=== PATIENT | female | born 1965 | race Caucasian/White ===

== ENCOUNTER 2016-12-14 09:54 | Emergency (ER) | payer SELFPAY ==
[2016-12-14 10:01] VITALS: BP 153/86; BMI 48.9
--- NOTE | 2016-12-14 10:43 | DR.GENAD ---
HPI - PCP Primary Care Physician: derrek in [place] - Complaint/Symptoms Chief Complaint Doctors Comments: Patient states that she has has this bronchitis for two weeks and am no better. Chief Complaint:: patient stated she feels week,nausea and vomiting, diarrhea, dizzy, hard to breath and feels faint. patient stated she has been her twice in the past 2 weeks with the same symptoms. Self Treatment fo Chief Complaint: came to the er twice in the past 2 weeks. - Source History Provided: Patient - Mode of Arrival Mode of Arrival: Ambulatory - Timing Onset of Chief Complaint: 11/28/16 PMH - PMH Past Medical History: Yes Past Medical History: Anxiety, Arthritis, COPD, Diabetes, GERD, Hypertension, Hypothyroidism Past Surgical History: Yes Surgical History: Hysterectomy - Family History History of Family Medical Conditions: Yes Family Medical History: Diabetes Mellitus, Cancer, [place], Coronary Artery Disease, Hypertension - Social History Does patient currently use any type of tobacco product: No Have you used tobacco products in the last 12 months: No Type of Tobacco Use: None Does any household member use tobacco: No Alcohol Use: None Do you use any recreational Drugs:: No Lives With: Alone Lives Where: Home - infectious screening In the last 2 months have you had wt loss of >10#?: NO Have you had fever, night sweats or hemotysis?: No Have you traveled outside the country in the last 6 months?: No Isolation: Standard ROS - Review of Systems Constitutional: No Symptoms Reported Eyes: No Symptoms Reported ENTM: No Symptoms Reported Respiratoy: Moist Cough, Wheezing Cardiovascular: No Symptoms Reported Gastrointestinal/Abdominal: No Symptoms Reported Genitourinary: No Symptoms Reported Neurological: No Symptoms Reported Musculoskeletal: No Symptoms Reported Integumentary: No Symptoms Reported Hematologic/Lymphatic: No Symptoms Reported Endocrine: No Symptoms Reported Psychiatric: No Symptoms Reported All Other Systems: Reviewed and Negative PE - Vital Signs Vitals: Temperature 97.7 F Pulse Rate 93 Respiratory Rate 16 Blood Pressure [Left Arm] 127/66 Blood Pressure [Right Arm] 130/71 Blood Pressure 153/86 O2 Sat by Pulse Oximetry 96 - General Limitations: No Limitations General Appearance: Alert - Head Head Exam: Normal Inspection, Atraumatic - Eyes Eye exam: Normal Appearance, PERRL, EOMI - ENT ENT Exam: Normal Exam, Mucous Membranes Moist TM/Canal Exam: Bilateral Normal Nose Exam: Normal Nose Exam Mouth Exam: Normal Inspection Throat Exam: Normal Inspection - Neck Neck Exam: Normal Inspection - Chest Chest Inspection: Normal Inspection - Respiratory Respiratory Exam: Normal Lung Sounds Bilat Respiratory Exam: Bilateral Clear to Auscultation - Cardiovascular Cardiovascular Exam: Regular Rate, Normal Rhythm - Abdominal Exam Abdominal Exam: Normal Inspection Abdominal Tenderness: negative: RUQ, RLQ, LUQ, LLQ, Epigastrium, Suprapubic, Diffuse, Mild, Moderate, Severe, Other - Extremities Extremities Exam: Normal Inspection - Back Back Exam: Normal Inspection - Neurologic Neurological Exam: Alert, Oriented X3, CN II-XII Intact - Psychiatric Psychiatric Exam: Normal Affect - Skin Skin Exam: Warm, Dry, Intact Course - Reevaluation 1st: Improved ROR - Labs Reviewed Result Diagrams: 12/14/16 11:05 12/14/16 11:05 Laboratory: WBC 6.2 X10^3/uL (3.6-10.0) 12/14/16 11:05 RBC 4.24 X10^6/uL (3.5-5.4) 12/14/16 11:05 Hgb 11.6 g/dL (12.0-16.0) L 12/14/16 11:05 Hct 35.6 % (36.0-47.0) L 12/14/16 11:05 MCV 84.0 fL (80.0-100.0) 12/14/16 11:05 MCH 27.4 pg (27.0-34.0) 12/14/16 11:05 MCHC 32.6 g/dL (33.0-35.0) L 12/14/16 11:05 RDW 15.3 % (11.6-16.5) 12/14/16 11:05 Plt Count 246 X10^3/uL (150.0-450.0) 12/14/16 11:05 MPV 8.2 fL (7.4-11.0) 12/14/16 11:05 Neut % 66.2 % (42.0-75.0) 12/14/16 11:05 Lymph % 25.3 % (21.0-51.0) 12/14/16 11:05 [place] % 6.2 % (0.0-13.0) 12/14/16 11:05 Eos % 1.8 % (0.9-2.9) 12/14/16 11:05 Baso % 0.5 % (0.2-1.0) 12/14/16 11:05 Neut # 4.1 x10^3/uL (2.2-4.8) 12/14/16 11:05 Lymph # 1.6 X10^3/uL (1.3-2.9) 12/14/16 11:05 [place] # 0.4 x10^3/uL (0.3-0.8) 12/14/16 11:05 Eos # 0.1 x10^3/uL (0.0-0.2) 12/14/16 11:05 Baso # 0.0 X10^3/uL (0.0-0.1) 12/14/16 11:05 Absolute Nucleated RBC 0.0 /100WBC 12/14/16 11:05 Sodium 138 mmol/L (136-145) 12/14/16 11:05 Corrected Sodium 143 mmol/L (136-145) 12/14/16 11:05 Potassium 3.8 mmol/L (3.5-5.1) 12/14/16 11:05 Chloride 102 mmol/L (98-107) 12/14/16 11:05 Carbon Dioxide 26.1 mmol/L (21-32) 12/14/16 11:05 BUN 12 mg/dL (7-18) 12/14/16 11:05 Creatinine 0.94 mg/dL (0.55-1.02) 12/14/16 11:05 Est GFR (MDRD) Af Amer > 60 (>60) 12/14/16 11:05 Est GFR (MDRD) Non-Af > 60 (>60) 12/14/16 11:05 Glucose 314 mg/dL (65-99) H 12/14/16 11:05 Calcium 8.1 mg/dL (8.5-10.1) L 12/14/16 11:05 Corrected Calcium 8.9 mg/dL (8.5-10.1) 12/14/16 11:05 Total Bilirubin 0.30 mg/dL (0.2-1.0) 12/14/16 11:05 AST 15 Units/L (15-37) 12/14/16 11:05 ALT 31 Units/L (12-78) 12/14/16 11:05 Alkaline Phosphatase 148 Units/L (46-116) H 12/14/16 11:05 C-Reactive Protein 35.00 mg/L (0-3.0) H 12/14/16 11:05 Total Protein 7.3 g/dL (6.4-8.2) 12/14/16 11:05 Albumin 3.0 g/dL (3.4-5.0) L 12/14/16 11:05 Globulin 4.3 g/dL (2.5-4.5) 12/14/16 11:05 Albumin/Globulin Ratio 0.7 Ratio (1.1-2.1) L 12/14/16 11:05 - XRAY XRAY Interpreted by: Radiologist (Chest: Bronchitis vs reactive airway disease) - Diagnosis Discharge Problem: Bronchitis - Discharge Plan Condition: Stable - Follow ups/Referrals Follow ups/Referrals: ELYSIA COLUNGA [Primary Care Provider] - 3 days - Instructions
[2016-12-14] MEDS ORDERED: NS 1000 ML 1,000 ML IV SCH (11:00)
[2016-12-14] MEDS ORDERED: DUONEB 0.5 MG/3 MG NEB ONE (11:09)
[2016-12-14 11:13] LABS: EOSINOPHILS # (AUTO) 0.1 x10^3/uL (0.0-0.2); HEMOGLOBIN 11.6 g/dL (12.0-16.0); LYMPHOCYTES # (AUTO) 1.6 X10^3/uL (1.3-2.9); MONOCYTES # (AUTO) 0.4 x10^3/uL (0.3-0.8)
[2016-12-14] MEDS ORDERED: DUONEB 0.5 MG/3 MG ONE (11:15)
[2016-12-14 11:28] LABS: BASOPHILS % (AUTO) 0.5 % (0.2-1.0); EOSINOPHILS % (AUTO) 1.8 % (0.9-2.9); HEMATOCRIT 35.6 % (36.0-47.0); LYMPHOCYTES % (AUTO) 25.3 % (21.0-51.0); MEAN CORPUSCULAR HEMOGLOBIN 27.4 pg (27.0-34.0); MEAN CORPUSCULAR HGB CONC 32.6 g/dL (33.0-35.0); MEAN PLATELET VOLUME 8.2 fL (7.4-11.0); MONOCYTES % (AUTO) 6.2 % (0.0-13.0); NEUTROPHILS # (AUTO) 4.1 x10^3/uL (2.2-4.8); NEUTROPHILS % (AUTO) 66.2 % (42.0-75.0); PLATELET COUNT 246 X10^3/uL (150.0-450.0); RED BLOOD COUNT 4.24 X10^6/uL (3.5-5.4); RED CELL DISTRIBUTION WIDTH 15.3 % (11.6-16.5); WHITE BLOOD COUNT 6.2 X10^3/uL (3.6-10.0)
[2016-12-14 11:32] LABS: ALANINE AMINOTRANSFERASE 31 Units/L (12-78); ALKALINE PHOSPHATASE 148 Units/L (46-116); ASPARTATE AMINO TRANSFERASE 15 Units/L (15-37); BLOOD UREA NITROGEN 12 mg/dL (7-18); CALCIUM 8.1 mg/dL (8.5-10.1); CARBON DIOXIDE 26.1 mmol/L (21-32); CHLORIDE 102 mmol/L (98-107); COR CA(FOR HYPOALB) 8.9 mg/dL (8.5-10.1); COR NA(FOR HYPERGLY) 143 mmol/L (136-145); CREATININE 0.94 mg/dL (0.55-1.02); GLUCOSE 314 mg/dL (65-99); SODIUM 138 mmol/L (136-145); TOTAL PROTEIN 7.3 g/dL (6.4-8.2); eGFR BLACK RACES > 60 (>60); eGFR NON BLACK RACES > 60 (>60)
[2016-12-14] MEDS ORDERED: NS 1000 ML 1,000 ML ONE (11:50)
[2016-12-14] MEDS ORDERED: PHENERGAN INJ 25 MG IV ONE (12:25)
[2016-12-14] MEDS ORDERED: PHENERGAN INJ 25 MG ONE (12:32)
--- NOTE | 2016-12-14 12:33 | RAD ---
HISTORY: Expiratory wheeze. Bronchitis. Study: Chest one view Comparison: December 10, 2016. Findings: The trachea is midline. The cardiac silhouette is unremarkable. There is some prominence of the ce ntral bronchial pulmonary markings in both lungs. There is no evidence of consolidation, significant infiltrate, effusion, or pneumothorax. The bony thorax is unremarkable. IMPRESSION: 1. Bronchitis versus reactive airway disease. Reported By:
== END 2016-12-14 12:50 | disposition home or self-care (01) ==
LOC: ER 09:54
DX: J40 Bronchitis, not specified as acute or chronic (principal)
CPT/HCPCS: 36415; 71010; 80053; 85025; 86140; 96365; 96374; 99283; A4222; J2550; J7620

== ENCOUNTER 2016-12-15 19:18 | Inpatient (IN) | payer SELFPAY ==
--- NOTE | 2016-12-15 19:26 | DR.GENAD ---
HPI - HPI Comment HPI Comment: COUGHING FOR SEVERAL WEEKS ON ANTIBIOTIC. GETTING WORSE. INCREASING SOB TODAY. HOME MEDICATIONS DID NOT HELP. HEAD IS HURTING WITH COUGHING. NAUSEATED. HAVE DIARRHEA FOR PAST 2 DAYS. - Complaint/Symptoms Chief Complaint Doctors Comments: INCREASING SOB AND WEAKNESS. HEAD HURTS WITH COUGHING. - Nurses notes reviewed Nurses Notes Review: Yes - Source History Provided: Patient - Mode of Arrival Mode of Arrival: Ambulatory - Timing Came on: Gradually - Duration Duration: Constant Duration: Hours - Severity Severity: Moderate PMH - PMH Past Medical History: Anxiety, Arthritis, COPD, Diabetes, GERD, Hypertension, Hypothyroidism Past Surgical History: Yes Surgical History: Hysterectomy - Family History Family Medical History: Diabetes Mellitus, Cancer, [place], Coronary Artery Disease, Hypertension - Social History Do you use any recreational Drugs:: No ROS - Review of Systems Constitutional: Weakness, Fatigue. negative: Chills, Fever Eyes: No Symptoms Reported. negative: Eye Pain, Discharge ENTM: Nose Congestion. negative: Ear Pain, Nose Discharge, Throat Pain Respiratoy: Productive Cough, Short of Breath, Wheezing. negative: Hemoptysis Cardiovascular: Chest Pain, Edema (TRACE) Gastrointestinal/Abdominal: Diarrhea, Nausea Genitourinary: No Symptoms Reported Neurological: Headache, Weakness, Dizziness Musculoskeletal: Back Pain, Muscle Pain Integumentary: No Symptoms Reported Hematologic/Lymphatic: No Symptoms Reported Endocrine: No Symptoms Reported All Other Systems: Reviewed and Negative PE - Vital Signs Vitals: Temperature 98.2 F Pulse Rate 89 Respiratory Rate 24 Blood Pressure [Left Arm] 127/66 Blood Pressure [Right Arm] 130/71 Blood Pressure 122/62 O2 Sat by Pulse Oximetry 92 - General Limitations: No Limitations General Appearance: Alert - Eyes Eye exam: Normal Appearance - ENT ENT Exam: Normal External Ear Exam External Ear Exam: Normal External Inspection TM/Canal Exam: Bilateral Normal Nose Exam: Normal Nose Exam Mouth Exam: Normal Inspection Throat Exam: Normal Inspection - Neck Neck Exam: Trachea Midline - Chest Chest Inspection: Symmetric Chest Wall Rise - Respiratory Respiratory Exam: Normal Lung Sounds Bilat Respiratory Exam: Bilateral Clear to Auscultation - Cardiovascular Cardiovascular Exam: Regular Rate, Normal Rhythm, Normal Heart Sounds - Abdominal Exam Abdominal Exam: Normal Bowel Sounds, Soft. negative: Tenderness - Extremities Extremities Exam: Edema (TRACE) - Back Back Exam: Paraspinal Tenderness - Psychiatric Psychiatric Exam: Anxious - Skin Skin Exam: Normal Color [facility] - Differential Diagnosis Differential Diagnosis: RESPIRATORY DISTRESS, CHF, COPD, HYPERCAPNEA. Course - Treatment Treatment: SEE ORDERS - Reevaluation 1st: Improved (SOB IMPROVING WITH BI-PAP.) 2nd: Improved (HEADACHE IMPROVE WITH PAIN MED.) - Consultation Consultation Comments: DISCUSS PATIENT WITH DR. ABDI. HE WILL ADMIT PATIENT. - Education/Counseling Education/Counseling: Patient, Education Educated On: Treatment, Diagnosis ROR - Labs Reviewed Laboratory Results Reviewed?: Yes Result Diagrams: 12/16/16 05:03 12/16/16 05:03 Laboratory: WBC 7.1 X10^3/uL (3.6-10.0) 12/15/16 19:45 RBC 4.32 X10^6/uL (3.5-5.4) 12/15/16 19:45 Hgb 11.8 g/dL (12.0-16.0) L 12/15/16 19:45 Hct 36.6 % (36.0-47.0) 12/15/16 19:45 MCV 84.9 fL (80.0-100.0) 12/15/16 19:45 MCH 27.3 pg (27.0-34.0) 12/15/16 19:45 MCHC 32.1 g/dL (33.0-35.0) L 12/15/16 19:45 RDW 15.4 % (11.6-16.5) 12/15/16 19:45 Plt Count 258 X10^3/uL (150.0-450.0) 12/15/16 19:45 MPV 8.0 fL (7.4-11.0) 12/15/16 19:45 Neut % 64.9 % (42.0-75.0) 12/15/16 19:45 Lymph % 26.5 % (21.0-51.0) 12/15/16 19:45 [place] % 6.1 % (0.0-13.0) 12/15/16 19:45 Eos % 1.7 % (0.9-2.9) 12/15/16 19:45 Baso % 0.8 % (0.2-1.0) 12/15/16 19:45 Neut # 4.6 x10^3/uL (2.2-4.8) 12/15/16 19:45 Lymph # 1.9 X10^3/uL (1.3-2.9) 12/15/16 19:45 [place] # 0.4 x10^3/uL (0.3-0.8) 12/15/16 19:45 Eos # 0.1 x10^3/uL (0.0-0.2) 12/15/16 19:45 Baso # 0.1 X10^3/uL (0.0-0.1) 12/15/16 19:45 Absolute Nucleated RBC 0.0 /100WBC 12/15/16 19:45 Sample Site [place] 12/15/16 19:52 ABG pH 7.300 (7.35-7.45) L 12/15/16 19:52 ABG pCO2 69.0 mmHg (35.0-45.0) H* 12/15/16 19:52 ABG pO2 68.0 mmHg (80.0-100.0) L 12/15/16 19:52 ABG HCO3 34.0 mmol/L (22-26) H* 12/15/16 19:52 ABG O2 Saturation 91.0 % (90-100) 12/15/16 19:52 ABG Base Excess 5.5 mmol/L (-2.0-2.0) H 12/15/16 19:52 Addy Test Pos 12/15/16 19:52 A-a Gradient 45.0 mmHg 12/15/16 19:52 FiO2 28 12/15/16 19:52 Blood Gas Comments Pt corrina well-bs 12/15/16 19:52 Sodium 141 mmol/L (136-145) 12/15/16 19:45 Corrected Sodium 146 mmol/L (136-145) H 12/15/16 19:45 Potassium 4.1 mmol/L (3.5-5.1) 12/15/16 19:45 Chloride 102 mmol/L (98-107) 12/15/16 19:45 Carbon Dioxide 32.2 mmol/L (21-32) H 12/15/16 19:45 BUN 14 mg/dL (7-18) 12/15/16 19:45 Creatinine 0.86 mg/dL (0.55-1.02) 12/15/16 19:45 Est GFR (MDRD) Af Amer > 60 (>60) 12/15/16 19:45 Est GFR (MDRD) Non-Af > 60 (>60) 12/15/16 19:45 Glucose 323 mg/dL (65-99) H 12/15/16 19:45 Calcium 8.5 mg/dL (8.5-10.1) 12/15/16 19:45 Corrected Calcium 9.1 mg/dL (8.5-10.1) 12/15/16 19:45 Total Bilirubin 0.20 mg/dL (0.2-1.0) 12/15/16 19:45 AST 11 Units/L (15-37) L 12/15/16 19:45 ALT 28 Units/L (12-78) 12/15/16 19:45 Alkaline Phosphatase 179 Units/L (46-116) H 12/15/16 19:45 Total Protein 7.6 g/dL (6.4-8.2) 12/15/16 19:45 Albumin 3.2 g/dL (3.4-5.0) L 12/15/16 19:45 Globulin 4.4 g/dL (2.5-4.5) 12/15/16 19:45 Albumin/Globulin Ratio 0.7 Ratio (1.1-2.1) L 12/15/16 19:45 Amylase 20 Units/L (25-115) L 12/15/16 19:45 Lipase 71 Units/L (73-393) L 12/15/16 19:45 - XRAY XRAY Interpreted by: Radiologist XRAY Findings: REPORT DISCUSS WITH PATIENT. - Diagnosis Discharge Problem: Respiratory distress, Hypercapnia, Headache, Pulmonary congestion, Hyperglycemia - Discharge Plan Disposition: ADMITTED INPATIENT Condition: Stable - Follow ups/Referrals - Instructions
[2016-12-15] MEDS ORDERED: DUONEB 0.5 MG/3 MG ONE (19:51)
[2016-12-15] MEDS ORDERED: DUONEB 0.5 MG/3 MG NEB ONE (19:55)
[2016-12-15 20:00] LABS: BASOPHILS # (AUTO) 0.1 X10^3/uL (0.0-0.1); BASOPHILS % (AUTO) 0.8 % (0.2-1.0); EOSINOPHILS # (AUTO) 0.1 x10^3/uL (0.0-0.2); EOSINOPHILS % (AUTO) 1.7 % (0.9-2.9); HEMATOCRIT 36.6 % (36.0-47.0); HEMOGLOBIN 11.8 g/dL (12.0-16.0); LYMPHOCYTES # (AUTO) 1.9 X10^3/uL (1.3-2.9); LYMPHOCYTES % (AUTO) 26.5 % (21.0-51.0); MEAN CORPUSCULAR HEMOGLOBIN 27.3 pg (27.0-34.0); MEAN CORPUSCULAR HGB CONC 32.1 g/dL (33.0-35.0); MEAN CORPUSCULAR VOLUME 84.9 fL (80.0-100.0); MONOCYTES # (AUTO) 0.4 x10^3/uL (0.3-0.8); MONOCYTES % (AUTO) 6.1 % (0.0-13.0); NEUTROPHILS # (AUTO) 4.6 x10^3/uL (2.2-4.8); NEUTROPHILS % (AUTO) 64.9 % (42.0-75.0); PLATELET COUNT 258 X10^3/uL (150.0-450.0); RED BLOOD COUNT 4.32 X10^6/uL (3.5-5.4); RED CELL DISTRIBUTION WIDTH 15.4 % (11.6-16.5); WHITE BLOOD COUNT 7.1 X10^3/uL (3.6-10.0)
[2016-12-15 20:02] LABS: ABG BASE EXCESS 5.5 mmol/L (-2.0-2.0)
[2016-12-15 20:03] LABS: ABG ALLEN TEST POS; FRACTIONATED INSPIRED OXYGEN 28
[2016-12-15 20:17] LABS: ALANINE AMINOTRANSFERASE 28 Units/L (12-78); ALBUMIN 3.2 g/dL (3.4-5.0); ALKALINE PHOSPHATASE 179 Units/L (46-116); AMYLASE 20 Units/L (25-115); ASPARTATE AMINO TRANSFERASE 11 Units/L (15-37); BLOOD UREA NITROGEN 14 mg/dL (7-18); CALCIUM 8.5 mg/dL (8.5-10.1); CARBON DIOXIDE 32.2 mmol/L (21-32); CHLORIDE 102 mmol/L (98-107); COR CA(FOR HYPOALB) 9.1 mg/dL (8.5-10.1); COR NA(FOR HYPERGLY) 146 mmol/L (136-145); CREATININE 0.86 mg/dL (0.55-1.02); GLUCOSE 323 mg/dL (65-99); LIPASE 71 Units/L (73-393); SODIUM 141 mmol/L (136-145); TOTAL PROTEIN 7.6 g/dL (6.4-8.2); eGFR BLACK RACES > 60 (>60); eGFR NON BLACK RACES > 60 (>60)
[2016-12-15] MEDS ORDERED: PHENERGAN INJ 25 MG IV STA (21:05)
[2016-12-15] MEDS ORDERED: PHENERGAN INJ 25 MG ONE (21:07)
[2016-12-15] MEDS ORDERED: DEMEROL INJ IVP ONE (22:50)
[2016-12-15] MEDS ORDERED: ROCEPHIN VIAL 1 GM 1 GM in NS 50 ML IV + SPIKE MINIBAG* 50 ML IV SCH (23:00)
[2016-12-15] MEDS ORDERED: DEMEROL INJ ONE (23:03)
[2016-12-15] MEDS ORDERED: NS 50 ML IV + SPIKE MINIBAG* 50 ML IV ONE (23:04)
[2016-12-15] MEDS ORDERED: ROCEPHIN VIAL 1 GM ONE (23:04)
[2016-12-15] MEDS ORDERED: NS 250 ML IV 250 ML IV ONE (23:05)
--- NOTE | 2016-12-15 23:31 | RAD ---
EXAM: Chest X-ray INDICATION: Shortness of breath COMPARISION: Prior exam from December 14, 2016 TECHNIQUE: Single view FINDINGS: The lungs are clear and the lung volumes are within normal limits. No pleural effusion or pneumothor ax. The cardiac silhouette is mildly enlarged and there central vascular congestion. The regional s [place] is intact. IMPRESSION: There is mild cardiomegaly and central vascular congestion. Reported By:
[2016-12-16] MEDS: DUONEB 0.5 MG/3 MG NEB SCH ×7 (01:37→21:40)
[2016-12-16 02:38] VITALS: BMI 54.6
[2016-12-16 05:29] LABS: BASOPHILS % (AUTO) 0.6 % (0.2-1.0); EOSINOPHILS # (AUTO) 0.1 x10^3/uL (0.0-0.2); EOSINOPHILS % (AUTO) 1.5 % (0.9-2.9); HEMATOCRIT 35.4 % (36.0-47.0); HEMOGLOBIN 11.5 g/dL (12.0-16.0); LYMPHOCYTES # (AUTO) 1.7 X10^3/uL (1.3-2.9); LYMPHOCYTES % (AUTO) 21.8 % (21.0-51.0); MEAN CORPUSCULAR HEMOGLOBIN 27.2 pg (27.0-34.0); MEAN CORPUSCULAR HGB CONC 32.4 g/dL (33.0-35.0); MONOCYTES # (AUTO) 0.4 x10^3/uL (0.3-0.8); MONOCYTES % (AUTO) 5.6 % (0.0-13.0); NEUTROPHILS # (AUTO) 5.6 x10^3/uL (2.2-4.8); NEUTROPHILS % (AUTO) 70.5 % (42.0-75.0); PLATELET COUNT 259 X10^3/uL (150.0-450.0); RED BLOOD COUNT 4.21 X10^6/uL (3.5-5.4); RED CELL DISTRIBUTION WIDTH 15.4 % (11.6-16.5); WHITE BLOOD COUNT 7.9 X10^3/uL (3.6-10.0)
[2016-12-16] MEDS: PHENERGAN INJ 25 MG IV PRN ×2 (05:29→11:39)
[2016-12-16] MEDS: DEMEROL INJ IVP PRN ×2 (05:29→11:38)
[2016-12-16 05:34] LABS: ALANINE AMINOTRANSFERASE 29 Units/L (12-78); ALBUMIN 3.2 g/dL (3.4-5.0); ALKALINE PHOSPHATASE 138 Units/L (46-116); ASPARTATE AMINO TRANSFERASE 17 Units/L (15-37); BLOOD UREA NITROGEN 11 mg/dL (7-18); CALCIUM 8.5 mg/dL (8.5-10.1); CARBON DIOXIDE 30.2 mmol/L (21-32); CHLORIDE 99 mmol/L (98-107); COR CA(FOR HYPOALB) 9.1 mg/dL (8.5-10.1); COR NA(FOR HYPERGLY) 142 mmol/L (136-145); CREATININE 0.73 mg/dL (0.55-1.02); GLUCOSE 256 mg/dL (65-99); SODIUM 138 mmol/L (136-145); TOTAL PROTEIN 7.7 g/dL (6.4-8.2); eGFR BLACK RACES > 60 (>60); eGFR NON BLACK RACES > 60 (>60)
[2016-12-16] MEDS: HUMULIN R SC PRN ×3 (05:37→17:43)
[2016-12-16] MEDS: HUMULIN 70/30 SC SCH ×2 (08:22→22:24)
[2016-12-16] MEDS: NORVASC TAB 10 MG PO SCH (08:23)
[2016-12-16] MEDS: ZESTRIL TAB 40 MG PO SCH (08:23)
[2016-12-16] MEDS: PAXIL PO SCH ×2 (08:23→22:07)
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
[2016-12-16] MEDS: ROCEPHIN VIAL 1 GM 1 GM in NS 50 ML IV + SPIKE MINIBAG* 50 ML IV SCH (21:30)
[2016-12-16] MEDS: FIORICET TAB PO PRN (22:06)
[2016-12-16] MEDS: LEVEMIR SC SCH (22:08)
[2016-12-17] MEDS: PHENERGAN INJ 25 MG IV PRN ×4 (00:54→22:32)
[2016-12-17] MEDS: DEMEROL INJ IVP PRN ×4 (00:54→22:32)
[2016-12-17] MEDS: DUONEB 0.5 MG/3 MG NEB SCH ×6 (01:01→21:29)
[2016-12-17 05:40] LABS: BASOPHILS # (AUTO) 0.1 X10^3/uL (0.0-0.1); BASOPHILS % (AUTO) 0.8 % (0.2-1.0); EOSINOPHILS # (AUTO) 0.2 x10^3/uL (0.0-0.2); EOSINOPHILS % (AUTO) 2.5 % (0.9-2.9); HEMATOCRIT 34.4 % (36.0-47.0); HEMOGLOBIN 11.1 g/dL (12.0-16.0); LYMPHOCYTES # (AUTO) 1.6 X10^3/uL (1.3-2.9); LYMPHOCYTES % (AUTO) 24.6 % (21.0-51.0); MEAN CORPUSCULAR HEMOGLOBIN 27.2 pg (27.0-34.0); MEAN CORPUSCULAR HGB CONC 32.3 g/dL (33.0-35.0); MEAN CORPUSCULAR VOLUME 84.3 fL (80.0-100.0); MEAN PLATELET VOLUME 8.3 fL (7.4-11.0); MONOCYTES # (AUTO) 0.5 x10^3/uL (0.3-0.8); MONOCYTES % (AUTO) 7.4 % (0.0-13.0); NEUTROPHILS # (AUTO) 4.3 x10^3/uL (2.2-4.8); NEUTROPHILS % (AUTO) 64.7 % (42.0-75.0); PLATELET COUNT 238 X10^3/uL (150.0-450.0); RED BLOOD COUNT 4.08 X10^6/uL (3.5-5.4); RED CELL DISTRIBUTION WIDTH 15.3 % (11.6-16.5); WHITE BLOOD COUNT 6.6 X10^3/uL (3.6-10.0)
[2016-12-17 05:48] LABS: ALANINE AMINOTRANSFERASE 26 Units/L (12-78); ALBUMIN 3.1 g/dL (3.4-5.0); ALKALINE PHOSPHATASE 117 Units/L (46-116); ASPARTATE AMINO TRANSFERASE 17 Units/L (15-37); BLOOD UREA NITROGEN 16 mg/dL (7-18); CALCIUM 8.9 mg/dL (8.5-10.1); CARBON DIOXIDE 31.7 mmol/L (21-32); CHLORIDE 100 mmol/L (98-107); COR CA(FOR HYPOALB) 9.6 mg/dL (8.5-10.1); COR NA(FOR HYPERGLY) 142 mmol/L (136-145); GLUCOSE 175 mg/dL (65-99); SODIUM 140 mmol/L (136-145); TOTAL PROTEIN 7.5 g/dL (6.4-8.2); eGFR BLACK RACES > 60 (>60); eGFR NON BLACK RACES > 60 (>60)
[2016-12-17] MEDS: FIORICET TAB PO PRN ×3 (05:54→20:30)
--- NOTE | 2016-12-17 07:19 | RAD ---
AP Chest Indication: Respiratory distress Comparison: 12/15/2016 Findings: The trachea is midline. The cardiac silhouette is borderline enlarged. The lungs are clear without focal infiltrate or effusion. The bony thorax is unremarkable. IMPRESSION: 1. No acute cardiopulmonary abnormality or change from prior examination. Reported By:
[2016-12-17] MEDS: NORVASC TAB 10 MG PO SCH (08:24)
[2016-12-17] MEDS: ZESTRIL TAB 40 MG PO SCH (08:24)
[2016-12-17] MEDS: HUMULIN 70/30 SC SCH ×2 (08:24→20:30)
[2016-12-17] MEDS: PAXIL PO SCH ×2 (08:24→20:30)
--- NOTE | 2016-12-17 15:06 | PCM.PROG ---
Progress Note - Progress Note for Day of Date: 12/17/16 - Subjective Subjective: PATIENT REPORTS SHE DOESN'T FEEL WELL THIS MORNING. SHE CONTINUES WITH SHORTNESS OF BREATH AT REST AND NAUSEA. PATIENT IS RECEIVING PHENERGAN IV FOR NAUSEA. ON AUSCULTATION, LUNGS CONTINUE WITH SCATTERED WHEEZES THROUGHOUT. SHE REPORTS HEADACHE IS IMPROVED WITH FIORICET. CBC WNL EXCEPT: H/H 11.1/ 34.4. CMP WNL EXCEPT: GLUCOSE 175, ALBUMIN 3.1. CHEST XRAY REPORTS NO ACUTE CARDIOPULMONARY ABNORMALITY. WE WILL CONTINUE CURRENT TREATMENT AND FOLLOW UP IN AM WITH LABS AND CHEST XRAY. WE WILL PLAN FOR DISCHARGE IF PATIENT IS STABLE. - Past Medical Family Social History Past Med/Fam/Surg Hx: No changes since H&P Allergies: Allergies Clarithromycin [From Biaxin] Allergy (Unknown, Verified 12/14/16 09:55) Hydrocodone [From Lortab] Allergy (Verified 12/14/16 09:55) Codeine Adverse Reaction (Verified 12/14/16 09:55) Hydromorphone [From Dilaudid] Adverse Reaction (Verified 12/14/16 09:55) - Review of Systems ROS: No change since H&P - Vital Signs and I&O's Vital Signs: Temperature 97.6 F Pulse Rate [Brachial] 86 Pulse Rate 92 Respiratory Rate 14 Blood Pressure [Left Arm] 103/56 Blood Pressure [Right Arm] 132/58 O2 Sat by Pulse Oximetry 96 Intake and Output: Intake & Output 12/15/16 12/16/16 12/17/16 12/18/16 11:59 11:59 11:59 11:59 Intake Total 270 1245 Balance 270 1245 - Physical Exam Oriented: Normal, Time, Person, Place Eyes: Normal. negative: Blurred Vision, Diplopia, Discharge, Pain, Redness, Photophobia Ear: Normal. negative: Swelling, Ecchymosis, Hemotypanum, Abrasion, Laceration Nose: Normal. negative: Injected, Discharge, Blood Throat: Red, Dry. negative: Tonsillar Hypertrophy, Exudate Respiratory: Generalized, Wheezes Cardiovascular: Normal. negative: Murmur : Normal. negative: Dysuria, Hematuria, Frequency, Discharge, Bleeding, Auscultation: Bowel Sounds: Increased. negative: Bruit Palpation: Normal. negative: Spleen Enlarged, Liver Enlarged, Mass Pulsatile Tenderness: Normal. negative: Rebound, Guarding, Rigidity Skin: Normal. negative: Diaphoresis, Wound, Bruising, Ecchymosis Musculoskeletal: Instability Psychiatric: Normal Mood Description: Calm, Appropriate Affect: Normal Speech Pattern: Clear, Appropriate - Laboratory and Diagnostics Result Diagrams: 12/17/16 03:40 12/17/16 03:40 Labs: Laboratory WBC 6.6 X10^3/uL (3.6-10.0) 12/17/16 03:40 RBC 4.08 X10^6/uL (3.5-5.4) 12/17/16 03:40 Hgb 11.1 g/dL (12.0-16.0) L 12/17/16 03:40 Hct 34.4 % (36.0-47.0) L 12/17/16 03:40 MCV 84.3 fL (80.0-100.0) 12/17/16 03:40 MCH 27.2 pg (27.0-34.0) 12/17/16 03:40 MCHC 32.3 g/dL (33.0-35.0) L 12/17/16 03:40 RDW 15.3 % (11.6-16.5) 12/17/16 03:40 Plt Count 238 X10^3/uL (150.0-450.0) 12/17/16 03:40 MPV 8.3 fL (7.4-11.0) 12/17/16 03:40 Neut % 64.7 % (42.0-75.0) 12/17/16 03:40 Lymph % 24.6 % (21.0-51.0) 12/17/16 03:40 [place] % 7.4 % (0.0-13.0) 12/17/16 03:40 Eos % 2.5 % (0.9-2.9) 12/17/16 03:40 Baso % 0.8 % (0.2-1.0) 12/17/16 03:40 Neut # 4.3 x10^3/uL (2.2-4.8) 12/17/16 03:40 Lymph # 1.6 X10^3/uL (1.3-2.9) 12/17/16 03:40 [place] # 0.5 x10^3/uL (0.3-0.8) 12/17/16 03:40 Eos # 0.2 x10^3/uL (0.0-0.2) 12/17/16 03:40 Baso # 0.1 X10^3/uL (0.0-0.1) 12/17/16 03:40 Absolute Nucleated RBC 0.1 /100WBC 12/17/16 03:40 Sample Site Lrad 12/15/16 19:52 ABG pH 7.300 (7.35-7.45) L 12/15/16 19:52 ABG pCO2 69.0 mmHg (35.0-45.0) H* 12/15/16 19:52 ABG pO2 68.0 mmHg (80.0-100.0) L 12/15/16 19:52 ABG HCO3 34.0 mmol/L (22-26) H* 12/15/16 19:52 ABG O2 Saturation 91.0 % (90-100) 12/15/16 19:52 ABG Base Excess 5.5 mmol/L (-2.0-2.0) H 12/15/16 19:52 Addy Test Pos 12/15/16 19:52 A-a Gradient 45.0 mmHg 12/15/16 19:52 FiO2 28 12/15/16 19:52 Blood Gas Comments Pt corrina well-bs 12/15/16 19:52 Sodium 140 mmol/L (136-145) 12/17/16 03:40 Corrected Sodium 142 mmol/L (136-145) 12/17/16 03:40 Potassium 3.5 mmol/L (3.5-5.1) 12/17/16 03:40 Chloride 100 mmol/L (98-107) 12/17/16 03:40 Carbon Dioxide 31.7 mmol/L (21-32) 12/17/16 03:40 BUN 16 mg/dL (7-18) 12/17/16 03:40 Creatinine 0.80 mg/dL (0.55-1.02) 12/17/16 03:40 Est GFR (MDRD) Af Amer > 60 (>60) 12/17/16 03:40 Est GFR (MDRD) Non-Af > 60 (>60) 12/17/16 03:40 Glucose 175 mg/dL (65-99) H 12/17/16 03:40 Calcium 8.9 mg/dL (8.5-10.1) 12/17/16 03:40 Corrected Calcium 9.6 mg/dL (8.5-10.1) 12/17/16 03:40 Total Bilirubin 0.20 mg/dL (0.2-1.0) 12/17/16 03:40 AST 17 Units/L (15-37) 12/17/16 03:40 ALT 26 Units/L (12-78) 12/17/16 03:40 Alkaline Phosphatase 117 Units/L (46-116) H 12/17/16 03:40 Total Protein 7.5 g/dL (6.4-8.2) 12/17/16 03:40 Albumin 3.1 g/dL (3.4-5.0) L 12/17/16 03:40 Globulin 4.4 g/dL (2.5-4.5) 12/17/16 03:40 Albumin/Globulin Ratio 0.7 Ratio (1.1-2.1) L 12/17/16 03:40 Amylase 20 Units/L (25-115) L 12/15/16 19:45 Lipase 71 Units/L (73-393) L 12/15/16 19:45 Acetone, Semi-Quant Negative (NEGATIVE) 12/15/16 19:45 - Plan (1) COPD exacerbation Status: Chronic Plan: CONTINUE IV ROCPEHIN, BIPAP, SUPPLEMENTAL OXYGEN, DUONEBS, MONITOR. (2) Respiratory distress Status: Acute Plan: ABOVE. (3) Hypercapnia Status: Acute Plan: ABOVE. (4) Headache Status: Acute Qualifiers: Headache type: tension-type Headache chronicity pattern: chronic headache Intractability: not intractable Qualified Code(s): G44.229 - Chronic tension -type headache, not intractable Plan: START FIORICET PRN, MONITOR. (5) Hyperglycemia Status: Acute Plan: START OTBS, INSULIN R SLIDING SCALE, MONITOR. (6) Nausea vomiting and diarrhea Status: Acute Plan: START PHENERGAN, IV FLUIDS, MONITOR. (7) Congestive heart failure (CHF) Status: Chronic Qualifiers: Congestive heart failure type: combined Congestive heart failure chronicity : chronic Qualified Code(s): I50.42 - Chronic combined systolic (congestive) and diastolic (congestive) heart failure (8) Diabetes mellitus Status: Chronic Qualifiers: Diabetes mellitus type: type 2 Diabetes mellitus complication status: with hyperglycemia Diabetes mellitus complication detail: D Diabetic retinopathy severity: D Proliferative retinopathy type: P Diabetes mellitus macular edema: D Diabetes mellitus assisted insulin use: with assisted use Laterality: L Chronic kidney disease stage: C Qualified Code(s): E11.65 - Type 2 diabetes mellitus with hyperglycemia; Z79.4 - jail (current) use of insulin (9) History of migraine headaches Status: Chronic (10) Hyperlipidemia Status: Chronic Qualifiers: Hyperlipidemia type: mixed hyperlipidemia Qualified Code(s): E78.2 - Mixed hyperlipidemia (11) Hypertension Status: Chronic Qualifiers: Hypertension type: essential hypertension Qualified Code(s): I10 - Essential (primary) hypertension (12) Hypothyroidism Status: Chronic Qualifiers: Hypothyroidism type: acquired Qualified Code(s): E03.9 - Hypothyroidism, unspecified
[2016-12-17] MEDS ORDERED: SNACK - Diabetic Appropriate PO SCH (20:00)
[2016-12-17] MEDS: LEVEMIR SC SCH (20:30)
[2016-12-17] MEDS: ROCEPHIN VIAL 1 GM 1 GM in NS 50 ML IV + SPIKE MINIBAG* 50 ML IV SCH (20:30)
[2016-12-17] MEDS: HUMULIN R SC PRN (21:00)
[2016-12-18] MEDS: DUONEB 0.5 MG/3 MG NEB SCH ×4 (01:01→12:08)
[2016-12-18] MEDS: FIORICET TAB PO PRN ×2 (02:39→09:47)
[2016-12-18] MEDS: PHENERGAN INJ 25 MG IV PRN ×2 (04:45→12:13)
[2016-12-18] MEDS: DEMEROL INJ IVP PRN ×2 (04:45→12:13)
[2016-12-18 05:09] LABS: ALANINE AMINOTRANSFERASE 26 Units/L (12-78); ALBUMIN 2.9 g/dL (3.4-5.0); ALKALINE PHOSPHATASE 119 Units/L (46-116); ASPARTATE AMINO TRANSFERASE 15 Units/L (15-37); BLOOD UREA NITROGEN 15 mg/dL (7-18); CALCIUM 8.6 mg/dL (8.5-10.1); CARBON DIOXIDE 32.2 mmol/L (21-32); CHLORIDE 99 mmol/L (98-107); COR CA(FOR HYPOALB) 9.5 mg/dL (8.5-10.1); COR NA(FOR HYPERGLY) 140 mmol/L (136-145); CREATININE 0.78 mg/dL (0.55-1.02); GLUCOSE 216 mg/dL (65-99); SODIUM 137 mmol/L (136-145); TOTAL PROTEIN 7.1 g/dL (6.4-8.2); eGFR BLACK RACES > 60 (>60); eGFR NON BLACK RACES > 60 (>60)
[2016-12-18 05:23] LABS: BASOPHILS % (AUTO) 0.6 % (0.2-1.0); EOSINOPHILS # (AUTO) 0.2 x10^3/uL (0.0-0.2); EOSINOPHILS % (AUTO) 3.3 % (0.9-2.9); HEMATOCRIT 34.4 % (36.0-47.0); HEMOGLOBIN 11.1 g/dL (12.0-16.0); LYMPHOCYTES # (AUTO) 1.5 X10^3/uL (1.3-2.9); LYMPHOCYTES % (AUTO) 24.8 % (21.0-51.0); MEAN CORPUSCULAR HEMOGLOBIN 27.4 pg (27.0-34.0); MEAN CORPUSCULAR HGB CONC 32.3 g/dL (33.0-35.0); MEAN CORPUSCULAR VOLUME 84.8 fL (80.0-100.0); MEAN PLATELET VOLUME 8.5 fL (7.4-11.0); MONOCYTES # (AUTO) 0.5 x10^3/uL (0.3-0.8); NEUTROPHILS # (AUTO) 3.9 x10^3/uL (2.2-4.8); NEUTROPHILS % (AUTO) 63.3 % (42.0-75.0); PLATELET COUNT 249 X10^3/uL (150.0-450.0); RED BLOOD COUNT 4.06 X10^6/uL (3.5-5.4); RED CELL DISTRIBUTION WIDTH 15.9 % (11.6-16.5); WHITE BLOOD COUNT 6.1 X10^3/uL (3.6-10.0)
[2016-12-18] MEDS: HUMULIN R SC PRN (06:15)
--- NOTE | 2016-12-18 06:56 | RAD ---
HISTORY: Respiratory distress Study: Chest one view Comparison: December 17, 2016 Findings: The trachea is midline. The cardiac silhouette is mildly enlarged. No congestive heart failure is n oted.. The lungs are clear without focal infiltrate or effusion. The bony thorax is unremarkable. IMPRESSION: 1. Mild cardiomegaly without congestive heart failure 2. Lungs clear Reported By:
[2016-12-18] MEDS: ZESTRIL TAB 40 MG PO SCH (09:47)
[2016-12-18] MEDS: PAXIL PO SCH (09:47)
[2016-12-18] MEDS: HUMULIN 70/30 SC SCH (09:48)
[2016-12-18] MEDS: NORVASC TAB 10 MG PO SCH (09:48)
[2016-12-18 15:11] VITALS: BP 118/56
--- NOTE | 2016-12-19 08:03 | DR.CARTERD ---
- Discharge Summary for: Discharge Summary for Date of:: 12/18/16 - Admission Date Date of Admission: 12/16/16 - Admission Diagnoses Admission Diagnosis: (1) COPD exacerbation (2) Respiratory distress (3) Hypercapnia (4) Headache (5) Hyperglycemia (6) Nausea vomiting and diarrhea (7) Congestive heart failure (CHF) (8) Diabetes mellitus (9) History of migraine headaches (10) Hyperlipidemia (11) Hypertension (12) Hypothyroidism - Discharge Date Discharge Date: 12/18/16 - Discharge Diagnoses Discharge Diagnosis: (1) COPD exacerbation (2) Respiratory distress (3) Hypercapnia (4) Headache (5) Hyperglycemia (6) Nausea vomiting and diarrhea (7) Congestive heart failure (CHF) (8) Diabetes mellitus (9) History of migraine headaches (10) Hyperlipidemia (11) Hypertension (12) Hypothyroidism - Hospital Course Hospital Course: DAY ONE OF HOSPITAL STAY, THIS 51 YEAR OLD FEMALE, IS A PATIENT OF DR. ELYSIA COLUNGA, [place], [place]. PATIENT PRESENTED TO THE EMERGENCY ROOM WITH COMPLAINTS OF COUGH, CONGESTION, AND SHORTNESS OF BREATH. SHE REPORTED SYMPTOMS HAD INCREASINGLY WORSENED DESPITE ORAL ANTIBIOTICS. SHE REPORTED ASSOCIATED SYMPTOMS OF NAUSEA, HEADACHE, WEAKNESS, FATIGUE, DIZZINESS, BACK PAIN, MUSCLE PAIN, AND NOSE CONGESTION. SHE REPORTED DIARRHEA FOR 2 DAYS. PATIENT HAS AN EXTENSIVE HISTORY OF COPD AND HYPERCAPNEA. SHE WAS NOTED WITH RESPIRATORY DISTRESS ON ARRIVAL TO ER WITH ACCESSORY MUSCLE USE. LABS AND CHEST XRAY OBTAINED. CBC WNL EXCEPT: H/H 11.5/35.4. CMP WNL EXCEPT: GLUCOSE 256, ALK PHOS 138, ALBUMIN 3.2. ABG PH 7.300, PCO2 69.0, PO2 68.0, HCO3 34.0, FIO2 28.0. CHEST XRAY REPORTED MILD CARDIOMEGALY AND CENTRAL VASCULAR CONGESTION. PATIENT WAS PLACED ON BIPAP AND WAS NOTED WITH LESS DISTRESS. WE ADMITTED PATIENT FOR FURTHER TREATMENT AND EVALUATION. DAY TWO OF HOSPITAL STAY, PATIENT REPORTED SHE DIDN'T FEEL WELL. SHE CONTINUED WITH SHORTNESS OF BREATH AT REST AND NAUSEA. PATIENT WAS RECEIVING PHENERGAN IV FOR NAUSEA. ON AUSCULTATION, LUNGS CONTINUED WITH SCATTERED WHEEZES THROUGHOUT. SHE REPORTED HEADACHE WAS IMPROVED WITH FIORICET. CBC WNL EXCEPT: H/H 11.1/34.4. CMP WNL EXCEPT: GLUCOSE 175, ALBUMIN 3.1. CHEST XRAY REPORTED NO ACUTE CARDIOPULMONARY ABNORMALITY. WE CONTINUED TREATMENT AND MONITORED. DAY THREE OF HOSPITAL STAY, PATIENT REPORTED SHE WAS FEELING BETTER. NO DISTRESS WAS NOTED. RESPIRATORY EFFORT WAS EASY. SHE DENIED NAUSEA. ON AUSCULTATION, LUNGS WERE DIMINISHED, BUT CLEAR. LABS WNL. WE PLANNED FOR DISCHARGE. INSTRUCTIONS FOR MEDICATIONS AND FOLLOW UP WERE GIVEN TO PATIENT AND FAMILY, BOTH VOICED UNDERSTANDING. PATIENT WAS DISCHARGED HOME IN STABLE CONDITION WITH FAMILY. - Discharge Medications Discharge Medications: Fsklkhmkwe-Vdri-Pzwceemk [FIORICET 50/325/40 MG *] 1 tab PO QID #20 tab [Rx] Cefdinir [Omnicef Cap 300 mg] 300 mg PO BID #20 cap 12/18/16 [Rx] Ipratropium/Albuterol Nebule [DUONEB 0.5 MG/3 MG NEBULE *] 1 ea NEB QID #120 each 12/18/16 [Rx] Ondansetron [Zofran Odt] 4 mg PO Q8H PRN #12 tab 12/18/16 [Rx] - Discharge Disposition Discharge Disposition: PATIENT IS TO FOLLOW UP WITH DR. ELYSIA COLUNGA IN ONE WEEK.
== END 2016-12-18 15:10 | disposition home or self-care (01) | DRG 191 ==
LOC: ER 19:18 → MED/SURG 12-16 00:12
PROVIDERS: ADMIT Internal Medicine; ATTEND Internal Medicine
DX: J44.1 Chronic obstructive pulmonary disease with (acute) exacerbation (principal); R06.09 Other forms of dyspnea; R06.89 Other abnormalities of breathing; R06.02 Shortness of breath; R19.7 Diarrhea, unspecified; R53.1 Weakness; M13.89 Other specified arthritis, multiple sites; K21.9 Gastro-esophageal reflux disease without esophagitis; I10 Essential (primary) hypertension; E03.8 Other specified hypothyroidism; R09.89 Other specified symptoms and signs involving the circulatory and respiratory systems; I51.7 Cardiomegaly; G44.229 Chronic tension-type headache, not intractable; R11.2 Nausea with vomiting, unspecified; I50.42 Chronic combined systolic (congestive) and diastolic (congestive) heart failure; Z79.4 Long term (current) use of insulin; Z86.69 Personal history of other diseases of the nervous system and sense organs
CPT/HCPCS: 36415; 36600; 71010; 80053; 82009; 82150; 82803; 83690; 85025; 94644; 94760; 96365; 96374; 96375; 99284; A4222; A4618; A7030; 1956; J0696; J1815; J2175; J2550; J7620

== ENCOUNTER 2017-01-05 02:17 | Emergency (ER) | payer SELFPAY ==
[2017-01-05 02:36] VITALS: BMI 50.4
[2017-01-05] MEDS ORDERED: TORADOL 60 MG VIAL IM ONE (03:13)
[2017-01-05] MEDS ORDERED: REGLAN INJ 10 MG VIAL IM STA (03:17)
[2017-01-05] MEDS ORDERED: TORADOL 60 MG VIAL ONE (03:19)
[2017-01-05] MEDS ORDERED: REGLAN INJ 10 MG VIAL ONE (03:19)
--- NOTE | 2017-01-05 03:25 | DR.GENAD ---
HPI - PCP Primary Care Physician: Rachna RAMOS - Complaint/Symptoms Chief Complaint Doctors Comments: Patient complains of headache, nausea, vomiting for the past week. States she has taken Zofran at 6 pm, Dramamine, Motrin 800mg and it has not helped. States this is the worst headache of her whole life. She is a patient of Dr. Ramos and states the pain is 10 of 10. states she was admitted aa few weeks ago with bronchitis and COPD and she had a headache all the time during that admission. She denies blurred vision, cold, fever, chills, or diarrhea. States she has taken Zofran all evening without any relief. Chief Complaint:: HEADACHE AND NAUSEATED EVERYDAY THIS WEEK. STARTED VOMITING TONIGHT Self Treatment fo Chief Complaint: ZOFRAN 6PM TONIGHT, DRAMAMINE AT NOON, IBUPROFEN 800MG AT 6PM TONIGHT - Nurses notes reviewed Nurses Notes Review: Yes - Source History Provided: Patient - Mode of Arrival Mode of Arrival: Ambulatory - Timing Onset of Chief Complaint: 12/31/16 Came on: Gradually - Duration Duration: Constant How lon Duration: Days - Location Location: diffuse headache - Severity Severity: Moderate - Modifying Factors Worsens:: nothing Improves:: nothing PMH - PMH Past Medical History: Yes Past Medical History: Anxiety, Arthritis, CHF, COPD, Depression, Diabetes, Dyslipidemia, Migraines, GERD, Headaches, Hypertension, Hypothyroidism, Sleep Apnea Past Surgical History: Yes Surgical History: Hysterectomy Past Surgical History Comment: EXPLORATORY SURGERY ON ABD. - Family History History of Family Medical Conditions: Yes Family Medical History: Diabetes Mellitus, Cancer, [place], Heart Failure, Hypertension - Social History Does patient currently use any type of tobacco product: No Have you used tobacco products in the last 12 months: No Type of Tobacco Use: None Does any household member use tobacco: No Alcohol Use: None Do you use any recreational Drugs:: No Lives With: Alone Lives Where: Home - infectious screening In the last 2 months have you had wt loss of >10#?: NO Have you had fever, night sweats or hemotysis?: No Have you traveled outside the country in the last 6 months?: No Isolation: Standard ROS - Review of Systems Constitutional: No Symptoms Reported Eyes: No Symptoms Reported ENTM: No Symptoms Reported Respiratoy: No Symptoms Reported, Non-Productive Cough, Wheezing Cardiovascular: No Symptoms Reported Gastrointestinal/Abdominal: No Symptoms Reported, Nausea, Vomiting. negative: See HPI, Abdominal Pain, Constipation, Diarrhea, Food Intolerance, Other Genitourinary: No Symptoms Reported Neurological: No Symptoms Reported, Headache Musculoskeletal: No Symptoms Reported Integumentary: No Symptoms Reported. negative: See HPI, Change in Color, Change in Hair/Nails, Dryness, Lesions, Lumps, Rash, Itching, Wound, Bruises, Juandice, Other Hematologic/Lymphatic: No Symptoms Reported Endocrine: No Symptoms Reported Psychiatric: No Symptoms Reported PE - Vital Signs Vitals: Temperature 97.9 F Pulse Rate 86 Respiratory Rate 20 Blood Pressure [Left Arm] 118/56 Blood Pressure [Right Arm] 118/56 Blood Pressure 166/52 O2 Sat by Pulse Oximetry 93 - General Limitations: No Limitations General Appearance: Alert, In Distress (mild) - Head Head Exam: Normal Inspection, Atraumatic, Normocephalic - Eyes Eye exam: Normal Appearance, PERRL, EOMI. negative: Scleral Icterus, Conjunctival Injection, Nystagmus, Miosis, Mydrasis, Periorbital Swelling, Periorbital Tenderness, Other - ENT ENT Exam: Normal Exam, Normal Oropharynx, Normal External Ear Exam, Mucous Membranes Moist, TM's Normal Bilaterally External Ear Exam: Normal External Inspection TM/Canal Exam: Bilateral Normal Nose Exam: Normal Nose Exam Mouth Exam: Normal Inspection Throat Exam: Normal Inspection - Neck Neck Exam: Normal Inspection, Full ROM, Trachea Midline. negative: Tenderness, Meningismus, Lymphadenopathy, Thyromegaly, Other - Chest Chest Inspection: Normal Inspection, Symmetric Chest Wall Rise - Respiratory Respiratory Exam: Normal Lung Sounds Bilat Respiratory Exam: Bilateral Wheezing, Bilateral Decreased Breath Sounds ( prolonged expiration) - Cardiovascular Cardiovascular Exam: Regular Rate, Normal Rhythm, Normal Heart Sounds. negative : Bradycardia, Tachycardia, Irregular Rhythm, Systolic Murmur, Diastolic Murmur , Rubs, Gallop, Clicks, JVD, +S1, +S2, +S3, +S4, Other - Abdominal Exam Abdominal Exam: Normal Inspection, Normal Bowel Sounds, Soft Abdominal Tenderness: negative: RUQ, RLQ, LUQ, LLQ, Epigastrium, Suprapubic, Diffuse, Mild, Moderate, Severe, Other - Extremities Extremities Exam: Normal Inspection, Full ROM, Normal Capillary Refill. negative: Tenderness, Edema, Joint Swelling, Calf Tenderness, Other - Back Back Exam: Normal Inspection, Full ROM. negative: Tenderness, (R) CVA Tenderness, (L) CVA Tenderness, Muscle Spasm, Paraspinal Tenderness, Vertebral Tenderness, Rashes, (R) Sciatic Notch Tenderness, (L) Sciatic Notch Tendern, (R ) Straight Leg Raise, (L) Straight Leg Raise, Other - Neurologic Neurological Exam: Alert, Oriented X3, CN II-XII Intact, Reflexes Normal (gait not tested). negative: Normal Gait - Psychiatric Psychiatric Exam: Normal Affect - Skin Skin Exam: Warm, Dry, Intact, Normal Color. negative: Rash, Cyanosis, Diaphoresis, Erythema, Pallor, Mottled, Other ROR - Labs Reviewed Laboratory Results Reviewed?: Yes (All x-ray results reviewed and discussed with patient) - XRAY XRAY Interpreted by: Radiologist (CT head: No acute intracranial process identified.) - Diagnosis Discharge Problem: Headache, acute Qualifiers: Headache type: unspecified Nausea and vomiting Qualifiers: Vomiting type: unspecified - Discharge Plan Disposition: HOME, SELF-CARE Condition: Stable Prescriptions: Ibuprofen [MOTRIN TAB 800 MG *] 800 mg PO BID PRN #60 tab PRN Reason: Pain/Inflammation Promethazine HCl [Phenergan] 25 mg [place] Q8H PRN #12 supp PRN Reason: Nausea/Vomiting - Follow ups/Referrals Follow ups/Referrals: ELYSIA RAMOS [Primary Care Provider] - 3 days - Instructions Instructions: Nausea, Adult, [id number], General Headache Without Cause, Easy -to-Read
--- NOTE | 2017-01-05 03:50 | CT ---
CT brain without contrast Indication: Headache Comparison: None available Technique: Multiple axial images of the brain were obtained from the skull base to the vertex without administr ation of IV contrast. Coronal and sagittal images were also provided. Radiation dose reduction techniques were performed utilizing adjustment for MA/kVP based on patient body size. Findings: No acute intraparenchymal hemorrhage or mass can be identified. No extra-axial fluid collections ar e seen. No alteration in the attenuation of the brain parenchyma can be identified to suggest acute or subacute ischemic change. The ventricular system is symmetric and nondilated. The extracranial structures are grossly unremarkable. IMPRESSION: 1. No acute intracranial process is identified. Reported By:
[2017-01-05 05:29] VITALS: BP 145/67
== END 2017-01-05 05:30 | disposition home or self-care (01) ==
LOC: ER 02:17
DX: R51 Headache (principal); R11.2 Nausea with vomiting, unspecified
CPT/HCPCS: 70450; 96372; 99283; J1885; J2765

== ENCOUNTER 2017-01-09 05:53 | Emergency (ER) | payer SELFPAY ==
[2017-01-09 06:09] VITALS: BP 142/78; BMI 49.9
[2017-01-09] MEDS ORDERED: PHENERGAN INJ 25 MG IM ONE (06:16)
[2017-01-09] MEDS ORDERED: DUONEB 0.5 MG/3 MG NEB ONE (06:16)
[2017-01-09] MEDS ORDERED: DEMEROL INJ IM ONE (06:16)
[2017-01-09] MEDS ORDERED: PHENERGAN INJ 25 MG ONE (06:19)
[2017-01-09] MEDS ORDERED: DEMEROL INJ ONE (06:19)
[2017-01-09] MEDS ORDERED: DUONEB 0.5 MG/3 MG ONE (06:24)
--- NOTE | 2017-01-09 06:27 | DR.GENAD ---
HPI - PCP Primary Care Physician: Rachna COLUNGA - HPI Comment HPI Comment: PATIENT IS A DIABETIC WITH COPD, CHF AND HISTORY OF MIGRAINE HEADACHE WHO PRESENTS TO ED WITH INCREASING TAYO. SHE WAS IN HOSPITAL RECENTLY FOR COPD AND CHF EXACERBATION. SHE DENIES FEVER. HOME MEDICATIONS ARE NOT HELPING HER SYMTOMS. - Complaint/Symptoms Chief Complaint Doctors Comments: SOB, HEADACHE, NAUSEA, DIARRHEA AND CHEST PAIN. Chief Complaint:: HARD TO BREATHE, COUGHING, CHEST HURTS WEAK, DIZZY, NAUSEA, DIARRHEA Self Treatment fo Chief Complaint: PHENERGAN BY MOUTH - Nurses notes reviewed Nurses Notes Review: Yes - Source History Provided: Patient - Mode of Arrival Mode of Arrival: Ambulatory - Timing Onset of Chief Complaint: 01/07/17 Came on: Gradually - Duration Duration: Constant Duration: Days - Severity Severity: Moderate PMH - PMH Past Medical History: Yes Past Medical History: CHF, COPD, Diabetes, Dyslipidemia, Hypertension, Hypothyroidism Past Medical History Comment: RESTLESS LEGS Past Surgical History: Yes Surgical History: Hysterectomy Past Surgical History Comment: EXPLORATORY ON ABD - Family History History of Family Medical Conditions: Yes Family Medical History: Diabetes Mellitus, Cancer, [place], Heart Failure, Hypertension - Social History Does patient currently use any type of tobacco product: No Have you used tobacco products in the last 12 months: No Type of Tobacco Use: None Does any household member use tobacco: No Alcohol Use: None Do you use any recreational Drugs:: No Lives With: Alone Lives Where: Home - infectious screening In the last 2 months have you had wt loss of >10#?: NO Have you had fever, night sweats or hemotysis?: No Have you traveled outside the country in the last 6 months?: No Isolation: Standard ROS - Review of Systems Constitutional: Weakness, Fatigue. negative: Chills, Fever Eyes: No Symptoms Reported. negative: Eye Pain, Discharge ENTM: Nose Congestion. negative: Ear Pain, Nose Discharge, Throat Pain Respiratoy: Productive Cough. negative: Short of Breath, Wheezing, Hemoptysis Cardiovascular: Chest Pain, Edema Gastrointestinal/Abdominal: Diarrhea, Nausea. negative: Abdominal Pain, Constipation, Vomiting Genitourinary: No Symptoms Reported. negative: Dysuria, Frequency, Hematuria Neurological: Headache, Weakness, Dizziness Musculoskeletal: Back Pain, Back Integumentary: No Symptoms Reported Hematologic/Lymphatic: Easy Bruising Endocrine: No Symptoms Reported All Other Systems: Reviewed and Negative PE - Vital Signs Vitals: Temperature 97.5 F Pulse Rate 88 Respiratory Rate 28 Blood Pressure [Left Arm] 145/67 Blood Pressure [Right Arm] 118/56 Blood Pressure 142/78 O2 Sat by Pulse Oximetry 96 - General Limitations: No Limitations General Appearance: Alert, In No Apparent Distress - Head Head Exam: Normal Inspection - Eyes Eye exam: Normal Appearance - ENT ENT Exam: Normal External Ear Exam External Ear Exam: Normal External Inspection TM/Canal Exam: Bilateral Normal Nose Exam: Normal Nose Exam Mouth Exam: Normal Inspection Throat Exam: Normal Inspection - Neck Neck Exam: Trachea Midline. negative: Tenderness, Meningismus, Lymphadenopathy - Chest Chest Inspection: Symmetric Chest Wall Rise - Respiratory Respiratory Exam: Respiratory Distress. negative: Chest Wall Tenderness Respiratory Exam: Bilateral Wheezing, Bilateral Rhonchi, Upper Wheezing, Upper Rhonchi, Lower Wheezing, Lower Rhonchi - Cardiovascular Cardiovascular Exam: Regular Rate, Normal Rhythm, Normal Heart Sounds, +S3 - Abdominal Exam Abdominal Exam: Normal Bowel Sounds, Soft. negative: Tenderness - Extremities Extremities Exam: Edema - Back Back Exam: Normal Inspection - Neurologic Neurological Exam: Alert, Oriented X3 - Psychiatric Psychiatric Exam: Anxious - Skin Skin Exam: Normal Color MDM - Differential Diagnosis Differential Diagnosis: DYSPNEA, COPD, CHF, PNEUMONIA, BRONCHITIS, DKA, UTI Course - Treatment Treatment: SEE ORDERS - Education/Counseling Education/Counseling: Patient, Education Educated On: Treatment, Diagnosis, Needs for Follow Up ROR - Labs Reviewed Laboratory Results Reviewed?: Yes Result Diagrams: 01/09/17 06:24 01/09/17 06:24 Laboratory: WBC 6.1 X10^3/uL (3.6-10.0) 01/09/17 06:24 RBC 4.46 X10^6/uL (3.5-5.4) 01/09/17 06:24 Hgb 12.3 g/dL (12.0-16.0) 01/09/17 06:24 Hct 37.4 % (36.0-47.0) 01/09/17 06:24 MCV 83.8 fL (80.0-100.0) 01/09/17 06:24 MCH 27.5 pg (27.0-34.0) 01/09/17 06:24 MCHC 32.8 g/dL (33.0-35.0) L 01/09/17 06:24 RDW 15.6 % (11.6-16.5) 01/09/17 06:24 Plt Count 230 X10^3/uL (150.0-450.0) 01/09/17 06:24 MPV 7.8 fL (7.4-11.0) 01/09/17 06:24 Neut % 59.9 % (42.0-75.0) 01/09/17 06:24 Lymph % 28.7 % (21.0-51.0) 01/09/17 06:24 Baker % 7.5 % (0.0-13.0) 01/09/17 06:24 Eos % 3.0 % (0.9-2.9) H 01/09/17 06:24 Baso % 0.9 % (0.2-1.0) 01/09/17 06:24 Neut # 3.7 x10^3/uL (2.2-4.8) 01/09/17 06:24 Lymph # 1.8 X10^3/uL (1.3-2.9) 01/09/17 06:24 Baker # 0.5 x10^3/uL (0.3-0.8) 01/09/17 06:24 Eos # 0.2 x10^3/uL (0.0-0.2) 01/09/17 06:24 Baso # 0.1 X10^3/uL (0.0-0.1) 01/09/17 06:24 Absolute Nucleated RBC 0.1 /100WBC 01/09/17 06:24 Sample Site Rrad 01/09/17 06:44 ABG pH 7.430 (7.35-7.45) 01/09/17 06:44 ABG pCO2 44.0 mmHg (35.0-45.0) 01/09/17 06:44 ABG pO2 89.0 mmHg (80.0-100.0) 01/09/17 06:44 ABG HCO3 29.2 mmol/L (22-26) H 01/09/17 06:44 ABG O2 Saturation 97.0 % (90-100) 01/09/17 06:44 ABG Base Excess 4.3 mmol/L (-2.0-2.0) H 01/09/17 06:44 Addy Test Pos 04/12/17 06:44 A-a Gradient 6.0 mmHg 01/09/17 06:44 FiO2 21.000 01/09/17 06:44 Blood Gas Comments [place] abg well-mtf 01/09/17 06:44 Sodium 138 mmol/L (136-145) 01/09/17 06:24 Corrected Sodium 144 mmol/L (136-145) 01/09/17 06:24 Potassium 3.7 mmol/L (3.5-5.1) 01/09/17 06:24 Chloride 100 mmol/L (98-107) 01/09/17 06:24 Carbon Dioxide 28.2 mmol/L (21-32) 01/09/17 06:24 BUN 9 mg/dL (7-18) 01/09/17 06:24 Creatinine 0.74 mg/dL (0.55-1.02) 01/09/17 06:24 Est GFR (MDRD) Af Amer > 60 (>60) 01/09/17 06:24 Est GFR (MDRD) Non-Af > 60 (>60) 01/09/17 06:24 Glucose 335 mg/dL (65-99) H 01/09/17 06:24 Calcium 8.4 mg/dL (8.5-10.1) L 01/09/17 06:24 Corrected Calcium 9.1 mg/dL (8.5-10.1) 01/09/17 06:24 Total Bilirubin 0.30 mg/dL (0.2-1.0) 01/09/17 06:24 AST 12 Units/L (15-37) L 01/09/17 06:24 ALT 25 Units/L (12-78) 01/09/17 06:24 Alkaline Phosphatase 165 Units/L (46-116) H 01/09/17 06:24 Creatine Kinase 61 Units/L (26-192) 01/09/17 06:24 CK-MB (CK-2) < 1.0 ng/mL (0-4.0) 01/09/17 06:24 CK/CKMB % Calc 1.6 % (<4) 01/09/17 06:24 Troponin I < 0.02 ng/mL (0-1.5) 01/09/17 06:24 B-Natriuretic Peptide 9.0 pg/mL (0-79) 01/09/17 06:24 Total Protein 7.7 g/dL (6.4-8.2) 01/09/17 06:24 Albumin 3.1 g/dL (3.4-5.0) L 01/09/17 06:24 Globulin 4.6 g/dL (2.5-4.5) H 01/09/17 06:24 Albumin/Globulin Ratio 0.7 Ratio (1.1-2.1) L 01/09/17 06:24 Specimen Type Clean catch urine 01/09/17 06:56 Urine Color Yellow (YELLOW) 01/09/17 06:56 Urine Appearance Slightly hazy (CLEAR) 01/09/17 06:56 Urine pH 6.0 (5.0 - 8.0) 01/09/17 06:56 Ur Specific [place] 1.020 (1.000-1.030) 01/09/17 06:56 Urine Protein 2+ (NEGATIVE) 01/09/17 06:56 Urine Glucose (UA) 4+ (NEGATIVE) 01/09/17 06:56 Urine Ketones Negative (NEGATIVE) 01/09/17 06:56 Urine Occult Blood 1+ (NEGATIVE) 01/09/17 06:56 Urine Nitrite Negative (NEGATIVE) 01/09/17 06:56 Urine Bilirubin Negative (NEGATIVE) 01/09/17 06:56 Urine Urobilinogen Normal (NORMAL) 01/09/17 06:56 Ur Leukocyte Esterase 2+ (NEGATIVE) 01/09/17 06:56 Urine RBC 2-5 /HPF (NEGATIVE) 01/09/17 06:56 Urine WBC 5-10 /HPF (NEGATIVE) 01/09/17 06:56 Ur Squamous Epith Cells Moderate /HPF (NEGATIVE) 01/09/17 06:56 Urine Bacteria Trace /HPF (NEGATIVE) 01/09/17 06:56 Ur Culture Indicated? Yes/culture set up 01/09/17 06:56 Acetone, Semi-Quant Negative (NEGATIVE) 01/09/17 06:24 - XRAY XRAY Interpreted by: Radiologist XRAY Findings: REPORT DISCUSS WITH PATIENT. - EKG Rhythm: NSR (EKG NOTED) - Diagnosis Discharge Problem: CHF (congestive heart failure) Qualifiers: Congestive heart failure type: combined Congestive heart failure chronicity: acute on chronic Qualified Code(s): I50.43 - Acute on chronic combined systolic (congestive) and diastolic (congestive) heart failure UTI (urinary tract infection) Qualifiers: Urinary tract infection type: site unspecified Hematuria presence: without hematuria Qualified Code(s): N39.0 - Urinary tract infection, site not specified Dyspnea Qualifiers: Dyspnea type: shortness of breath Qualified Code(s): R06.02 - Shortness of breath Migraine headache Qualifiers: Migraine type: without aura Status migrainosus presence: without status migrainosus Intractability: intractable Qualified Code(s): G43.019 - Migraine without aura, intractable, without status migrainosus - Discharge Plan Condition: Stable - Follow ups/Referrals Follow ups/Referrals: ELYSIA COLUNGA [Primary Care Provider] - 1 day - Instructions Instructions: Shortness of Breath, [id number], Urinary Tract Infection, Heart Failure, [id number], Migraine Headache Additional Instructions: RETURN TO ED IF WORSE.
--- NOTE | 2017-01-09 06:37 | RAD ---
HISTORY: Chest pain, wheezing, cough Study: Single-view chest Comparison: December 18, 2016 Findings: Trachea is midline. There is cardiomegaly with aortic uncoiling. Pulmonary vascular congestion has d eveloped which may indicate mild cardiac decompensation or fluid overload. No overt CHF, pleural flu id or pneumothorax is seen. Osseous structures are intact. IMPRESSION: Cardiomegaly with mild pulmonary vascular congestion which may indicate cardiac decompensation or fl uid overload. Reported By:
[2017-01-09 06:46] LABS: ABG ALLEN TEST POS; ABG BASE EXCESS 4.3 mmol/L (-2.0-2.0); ABG HCO3 29.2 mmol/L (22-26)
[2017-01-09 06:50] LABS: BASOPHILS # (AUTO) 0.1 X10^3/uL (0.0-0.1); BASOPHILS % (AUTO) 0.9 % (0.2-1.0); EOSINOPHILS # (AUTO) 0.2 x10^3/uL (0.0-0.2); HEMATOCRIT 37.4 % (36.0-47.0); HEMOGLOBIN 12.3 g/dL (12.0-16.0); LYMPHOCYTES # (AUTO) 1.8 X10^3/uL (1.3-2.9); LYMPHOCYTES % (AUTO) 28.7 % (21.0-51.0); MEAN CORPUSCULAR HEMOGLOBIN 27.5 pg (27.0-34.0); MEAN CORPUSCULAR HGB CONC 32.8 g/dL (33.0-35.0); MEAN CORPUSCULAR VOLUME 83.8 fL (80.0-100.0); MEAN PLATELET VOLUME 7.8 fL (7.4-11.0); MONOCYTES # (AUTO) 0.5 x10^3/uL (0.3-0.8); MONOCYTES % (AUTO) 7.5 % (0.0-13.0); NEUTROPHILS # (AUTO) 3.7 x10^3/uL (2.2-4.8); NEUTROPHILS % (AUTO) 59.9 % (42.0-75.0); PLATELET COUNT 230 X10^3/uL (150.0-450.0); RED BLOOD COUNT 4.46 X10^6/uL (3.5-5.4); RED CELL DISTRIBUTION WIDTH 15.6 % (11.6-16.5); WHITE BLOOD COUNT 6.1 X10^3/uL (3.6-10.0)
[2017-01-09 07:03] LABS: ALANINE AMINOTRANSFERASE 25 Units/L (12-78); ALBUMIN 3.1 g/dL (3.4-5.0); ALKALINE PHOSPHATASE 165 Units/L (46-116); ASPARTATE AMINO TRANSFERASE 12 Units/L (15-37); BLOOD UREA NITROGEN 9 mg/dL (7-18); CALCIUM 8.4 mg/dL (8.5-10.1); CARBON DIOXIDE 28.2 mmol/L (21-32); CHLORIDE 100 mmol/L (98-107); COR CA(FOR HYPOALB) 9.1 mg/dL (8.5-10.1); COR NA(FOR HYPERGLY) 144 mmol/L (136-145); CREATINE KINASE 61 Units/L (26-192); CREATININE 0.74 mg/dL (0.55-1.02); GLUCOSE 335 mg/dL (65-99); SODIUM 138 mmol/L (136-145); TOTAL PROTEIN 7.7 g/dL (6.4-8.2); eGFR BLACK RACES > 60 (>60); eGFR NON BLACK RACES > 60 (>60)
[2017-01-09 07:08] LABS: BILIRUBIN,URINE NEGATIVE (NEGATIVE); BLOOD/HEMOGLOBIN,URINE 1+ (NEGATIVE); GLUCOSE, URINE 4+ (NEGATIVE); KETONES,URINE NEGATIVE (NEGATIVE); LEUKOCYTE ESTERASE ,URINE 2+ (NEGATIVE); NITRITES,URINE NEGATIVE (NEGATIVE); PROTEIN,URINE 2+ (NEGATIVE); UROBILINOGEN,URINE NORMAL (NORMAL)
[2017-01-09 07:22] LABS: APPEARANCE,URINE SLIGHTLY HAZY (CLEAR); BACTERIA,URINE TRACE /HPF (NEGATIVE); COLOR,URINE YELLOW (YELLOW); SQUAMOUS EPITHELIAL CELL,UR MODERATE /HPF (NEGATIVE)
[2017-01-09] MEDS ORDERED: ROCEPHIN VIAL 1 GM IM ONE (07:30)
[2017-01-09] MEDS ORDERED: LASIX IVP ONE (07:35)
[2017-01-09 07:36] LABS: CKMB % 1.6 % (<4); CREATINE KINASE MB < 1.0 ng/mL (0-4.0); TROPONIN I < 0.02 ng/mL (0-1.5)
[2017-01-09] MEDS ORDERED: ROCEPHIN VIAL 1 GM ONE (07:36)
[2017-01-09] MEDS ORDERED: XYLOCAINE 1 % (PLAIN) ONE (07:37)
[2017-01-09] MEDS: LASIX IVP SCH ×2 (07:40→08:06)
== END 2017-01-09 08:16 | disposition home or self-care (01) ==
LOC: ER 06:01
DX: I50.43 Acute on chronic combined systolic (congestive) and diastolic (congestive) heart failure (principal); N39.0 Urinary tract infection, site not specified; R06.02 Shortness of breath; G43.019 Migraine without aura, intractable, without status migrainosus; I51.7 Cardiomegaly
CPT/HCPCS: 36415; 36600; 71010; 80053; 81001; 82009; 82550; 82553; 82803; 83880; 84484; 85025; 87086; 93005; 93010; 94640; 96365; 96372; 96374; 99283; A4222; J0696; J1940; J2001; J2175; J2550; J7620

== ENCOUNTER 2017-01-10 21:56 | Emergency (ER) | payer SELFPAY ==
[2017-01-10 22:12] VITALS: BP 145/60; BMI 49.9
[2017-01-10] MEDS ORDERED: PHENERGAN INJ 25 MG ONE (22:20)
--- NOTE | 2017-01-10 22:27 | DR.GENAD ---
HPI - PCP Primary Care Physician: CRISTINE - Complaint/Symptoms Chief Complaint Doctors Comments: Patient states she took 60 units of Novolog by accident 30 minutes [employer]. FSBS around 200. also complaint of nausea. Chief Complaint:: PT TOOK TOO MUCH INSULIN - Nurses notes reviewed Nurses Notes Review: Yes - Source History Provided: Patient, EMS - Mode of Arrival Mode of Arrival: EMS - Timing Onset of Chief Complaint: 01/10/17 Came on: Suddenly - Duration Duration: Constant How lon Duration: Minutes - Location Location: generalized - Severity Severity: Mild - Associated Signs and Symptoms Associated Signs and Symptoms: Hx chf and Hypertension PMH - PMH Past Medical History: Yes Past Medical History: CHF, COPD, Diabetes, Dyslipidemia, Hypertension, Hypothyroidism Past Surgical History: Yes Surgical History: Hysterectomy - Family History History of Family Medical Conditions: Yes Family Medical History: Diabetes Mellitus, Cancer, [place], Heart Failure, Hypertension - Social History Does patient currently use any type of tobacco product: No Have you used tobacco products in the last 12 months: No Type of Tobacco Use: None Does any household member use tobacco: No Alcohol Use: None Do you use any recreational Drugs:: No Lives With: Alone Lives Where: Home - infectious screening In the last 2 months have you had wt loss of >10#?: NO Have you had fever, night sweats or hemotysis?: No Have you traveled outside the country in the last 6 months?: No Isolation: Standard ROS - Review of Systems Constitutional: No Symptoms Reported Eyes: No Symptoms Reported ENTM: No Symptoms Reported Respiratoy: Short of Breath Cardiovascular: No Symptoms Reported Gastrointestinal/Abdominal: Nausea Genitourinary: No Symptoms Reported Neurological: No Symptoms Reported Musculoskeletal: No Symptoms Reported Integumentary: No Symptoms Reported Hematologic/Lymphatic: No Symptoms Reported Endocrine: No Symptoms Reported Psychiatric: Depression PE - Vital Signs Vitals: Temperature 97.9 F Pulse Rate 93 Respiratory Rate 22 Blood Pressure [Left Arm] 145/67 Blood Pressure [Right Arm] 118/56 Blood Pressure 145/60 O2 Sat by Pulse Oximetry 97 - General Limitations: No Limitations General Appearance: Alert, In No Apparent Distress - Head Head Exam: Normal Inspection - Eyes Eye exam: Normal Appearance, EOMI. negative: Scleral Icterus, Conjunctival Injection - ENT ENT Exam: Normal Exam External Ear Exam: Normal External Inspection Throat Exam: Normal Inspection, Tonsillar Erythema, Tonsillomegaly - Neck Neck Exam: Normal Inspection, Trachea Midline - Respiratory Respiratory Exam: negative: Accessory Muscle Use, Respiratory Distress - Cardiovascular Cardiovascular Exam: Regular Rate - Abdominal Exam Abdominal Exam: Normal Inspection, Normal Bowel Sounds, Soft. negative: Distention, Tenderness, Guarding - Extremities Extremities Exam: Normal Inspection, Full ROM - Neurologic Neurological Exam: Alert, Oriented X3, CN II-XII Intact - Psychiatric Psychiatric Exam: Depressed - Skin Skin Exam: Intact, Normal Color Course - Treatment Treatment: FSBS: remaimng at about 200 with no intervention. neyda discharge home. - Diagnosis Discharge Problem: Hyperglycemia - Discharge Plan Condition: Stable - Follow ups/Referrals Follow ups/Referrals: ELYSIA COLUNGA [Primary Care Provider] - 3 days - Instructions
[2017-01-10] MEDS ORDERED: PHENERGAN INJ 25 MG IVP ONE (22:28)
== END 2017-01-10 23:49 | disposition home or self-care (01) ==
LOC: ER 22:05
DX: R73.9 Hyperglycemia, unspecified (principal)
CPT/HCPCS: 96365; 96374; 99282; 99283; A4222; J2550

== ENCOUNTER 2017-02-09 03:53 | Emergency (ER) | payer SELFPAY ==
[2017-02-09 04:01] VITALS: BP 135/85; BMI 48.1
[2017-02-09] MEDS ORDERED: PHENERGAN INJ 25 MG IM ONE (04:20)
[2017-02-09] MEDS ORDERED: TORADOL 60 MG VIAL IM ONE (04:20)
[2017-02-09] MEDS ORDERED: PREDNISONE TAB 20 MG PO ONE ×2 (04:21→04:24)
[2017-02-09] MEDS ORDERED: AUGMENTIN 500 MG/125 MG TAB PO ONE ×2 (04:22→04:24)
[2017-02-09] MEDS ORDERED: PHENERGAN INJ 25 MG ONE (04:24)
--- NOTE | 2017-02-09 04:24 | DR.HEADACH ---
HPI - Time Seen Time seen: 04:22 - Primary Care Physician Primary Care Physician: edward - Complaint/Symptoms Chief Complaint Doctors Comments: Patient states she has had a headache for the past two days with pain maxillary pain with a sore throat and problems sleeping due to the headache. States she has been taking over the counter sinus medicines. she denies fever, chills, nausea or vomiting. Patient states she is a patient of Dr. Ramos. States she has a history of migraines and this is not the worst headache of her life. States she has had her maxillary face broken before and she did not go to the surgeons to get it repaired and her right maxillary hurts when she touch it. She is having a sore throat but denies cold or cough. Chief Complaint:: sinus headache for 2 days. sore throat. nausea - Reviewed Nurses Notes Reviewed: Yes - Source History Provided: Patient - Mode of Arrival Mode of Arrival: Ambulatory - Timing Onset of Chief Complaint: 02/07/17 - Duration Since Onset: Intermittent How lon Duration: Days - Location Headache Location: Frontal - Quality Quality: Throbbing, Sharp - Severity Headache Severity: Moderate, Like Previous Headaches - Context Headache Onset Circumstances: Spontaneous History of: None Prior Work Up: CT - Modifying Factors Improves With: Nothing Worsens: Nothing - Associated Signs and Symptoms Associated Symptoms: Nausea, Nasal Congestion. denies: None, Fever, Vomitting, Weakness, Numbess, Photophobia, Blurred Vision, Lacrimation Aura: denies: Visual, Sensory, Motor, Mood PMH - PMH Past Medical History: Yes Past Medical History: CHF, COPD, Diabetes, Dyslipidemia, Hypertension, Hypothyroidism Past Surgical History: Yes Surgical History: Hysterectomy - Family History History of Family Medical Conditions: Yes Family Medical History: Diabetes Mellitus, Cancer, [place], Heart Failure, Hypertension - Social History Does patient currently use any type of tobacco product: No Have you used tobacco products in the last 12 months: No Type of Tobacco Use: None Does any household member use tobacco: No Alcohol Use: None Do you use any recreational Drugs:: No Lives With: Family Lives Where: Home - infectious screening Have you traveled outside the country in the last 6 months?: No Isolation: Standard ROS - Review of Systems Constitutional: No Symptoms Reported. negative: See HPI, Chills, Diaphoresis, Fever, Malaise, Weakness, Irritable, Fatigue, Loss of Appetite, Other Eyes: No Symptoms Reported ENTM: No Symptoms Reported, Nose Discharge, Nose Congestion, Throat Pain. negative: See HPI, Ear Pain, Ear Discharge, Pulling on Ears, Hearing Loss, Nose Pain, Epistaxis, Mouth Pain, Mouth Swelling, Loose Teeth, Drooling, Throat Swelling, Ear Foreign Body Respiratoy: No Symptoms Reported Cardiovascular: No Symptoms Reported Gastrointestinal/Abdominal: No Symptoms Reported Genitourinary: No Symptoms Reported Neurological: No Symptoms Reported Musculoskeletal: No Symptoms Reported Integumentary: No Symptoms Reported Hematologic/Lymphatic: No Symptoms Reported Endocrine: No Symptoms Reported Psychiatric: No Symptoms Reported PE - Vital Signs Vitals: Temperature 98.3 F Pulse Rate 93 Respiratory Rate 22 Blood Pressure [Left Arm] 145/67 Blood Pressure [Right Arm] 118/56 Blood Pressure 135/85 O2 Sat by Pulse Oximetry 90 - General Limitations: No Limitations General Appearance: Alert, In No Apparent Distress - Head Head Exam: Normal Inspection, Atraumatic, Normocephalic - Eyes Eye exam: Normal Appearance, PERRL, EOMI. negative: Scleral Icterus, Conjunctival Injection, Nystagmus, Miosis, Mydrasis, Periorbital Swelling, Periorbital Tenderness, Other Eyelids: Normal Inspection: Left Pupils: Regular, Round: Bilateral Sclera/Conjunctival: Normal Inspection: Bilateral - ENT ENT Exam: Normal Exam, Normal Oropharynx, Normal External Ear Exam, Mucous Membranes Moist, TM's Normal Bilaterally External Ear Exam: Normal External Inspection TM/Canal Exam: Bilateral Normal Nose Exam: Normal Nose Exam, Sinus Tenderness (maxillary worst right side; ) Mouth Exam: Normal Inspection Teeth Exam: Normal Inspection. negative: Dental Caries, Fractured Tooth #, Dental Tenderness #, Gingival Swelling, Other Throat Exam: Normal Inspection, Tonsillar Erythema - Neck Neck Exam: Normal Inspection, Full ROM, Trachea Midline. negative: Tenderness, Meningismus, Lymphadenopathy, Thyromegaly, Other - Chest Chest Inspection: Normal Inspection, Symmetric Chest Wall Rise - Respiratory Respiratory Exam: Normal Lung Sounds Bilat Respiratory Exam: Bilateral Clear to Auscultation - Cardiovascular Cardiovascular Exam: Regular Rate, Normal Rhythm, Normal Heart Sounds. negative : Bradycardia, Tachycardia, Irregular Rhythm, Systolic Murmur, Diastolic Murmur , Rubs, Gallop, Clicks, JVD, +S1, +S2, +S3, +S4, Other - Abdominal Exam Abdominal Exam: Normal Inspection, Normal Bowel Sounds, Soft. negative: Distention, Tenderness, Guarding, Rebound, Rigidity, Dimnished Bowel Sounds, Hyperactive Bowel Sounds, Hypoactive Bowel Sounds, Organomegaly, Trauma, Incision, Ascites, Mass, Bruit, Pulsatile Mass, Hernia, Other Abdominal Tenderness: negative: RUQ, RLQ, LUQ, LLQ, Epigastrium, Suprapubic, Diffuse, Mild, Moderate, Severe, Other - Extremities Extremities Exam: Normal Inspection, Full ROM, Tenderness, Normal Capillary Refill. negative: Edema, Joint Swelling, Calf Tenderness, Other - Back Back Exam: Normal Inspection, Full ROM. negative: Tenderness, (R) CVA Tenderness, (L) CVA Tenderness, Muscle Spasm, Paraspinal Tenderness, Vertebral Tenderness, Rashes, (R) Sciatic Notch Tenderness, (L) Sciatic Notch Tendern, (R ) Straight Leg Raise, (L) Straight Leg Raise, Other - Neurologic Neurological Exam: Alert, Oriented X3, CN II-XII Intact, Normal Gait, Reflexes Normal - Psychiatric Psychiatric Exam: Normal Affect, Normal Mood. negative: Depressed, Agitated, Anxious, Flat Affect, Manic, Homicidal Ideation, Suicidal Ideation, Other - Skin Skin Exam: Warm, Dry, Intact, Normal Color - Diagnosis Discharge Problem: Headache Qualifiers: Headache chronicity pattern: acute headache Sinusitis Qualifiers: Sinusitis location: maxillary Pharyngitis Qualifiers: Pharyngitis/tonsillitis etiology: unspecified etiology Qualified Code(s): J02.9 - Acute pharyngitis, unspecified - Discharge Plan Disposition: 01 HOME, SELF-CARE Condition: Stable Prescriptions: Amoxicillin & Pot Clavulanate [AUGMENTIN TAB 875 mg/125 mg *] 1 tab PO BID #20 tab Cetirizine HCl [Zyrtec Tab 10 mg] 10 mg PO DAILY #30 tab Fluticasone Nasal Venus [FLONASE NASAL SPRAY *] 2 sprays ENOSTRIL DAILY #1 each Tramadol HCl [ULTRAM 50 MG *] 50 mg PO BID PRN #6 tab PRN Reason: Pain - Follow ups/Referrals Follow ups/Referrals: ELYSIA RAMOS [Primary Care Provider] - 3 days - Instructions Instructions: General Headache Without Cause, [id number], Sinus Headache, [id number], Sinusitis, Adult
[2017-02-09] MEDS ORDERED: TORADOL 60 MG VIAL ONE (04:25)
== END 2017-02-09 04:49 | disposition home or self-care (01) ==
LOC: ER 03:53
DX: R51 Headache (principal); J32.0 Chronic maxillary sinusitis; J02.9 Acute pharyngitis, unspecified
CPT/HCPCS: 96372; 99282; J1885; J2550; J7506

== ENCOUNTER 2017-04-01 08:01 | Emergency (ER) | payer SELFPAY ==
[2017-04-01 08:05] VITALS: BP 148/81; BMI 48.1
--- NOTE | 2017-04-01 08:22 | DR.GENAD ---
HPI - PCP Primary Care Physician: CRISTINE - HPI Comment HPI Comment: HOME MEDICATION NOT HELPING. WORSE TODAY. - Complaint/Symptoms Chief Complaint Doctors Comments: INCREASING WEAKNESS, SOB AND CHEST PAIN TIMES ONE WEEK. Chief Complaint:: PT. C/O FATIGUE AND GENERALIZED WEAKNESS X 1 WEEK. PT. ALSO C/ O SHORTNESS OF BREATH, HEADACHE, AND FEELING DISORIENTED WITH ONSET BEING SATURDAY. - Nurses notes reviewed Nurses Notes Review: Yes - Source History Provided: Patient - Mode of Arrival Mode of Arrival: Ambulatory - Timing Onset of Chief Complaint: 03/25/17 Came on: Gradually - Duration Duration: Constant Duration: Days - Severity Severity: Moderate PMH - PMH Past Medical History: Yes Past Medical History: CHF, COPD, Diabetes, Dyslipidemia, Hypertension, Hypothyroidism Past Surgical History: Yes Surgical History: Hysterectomy - Family History History of Family Medical Conditions: Yes Family Medical History: Diabetes Mellitus, Cancer, [place], Heart Failure, Hypertension - Social History Does patient currently use any type of tobacco product: No Have you used tobacco products in the last 12 months: No Type of Tobacco Use: None Does any household member use tobacco: No Alcohol Use: None Do you use any recreational Drugs:: No Lives With: Alone Lives Where: Home - infectious screening In the last 2 months have you had wt loss of >10#?: NO Have you had fever, night sweats or hemotysis?: No Have you traveled outside the country in the last 6 months?: No Isolation: Standard ROS - Review of Systems Constitutional: Weakness, Fatigue. negative: Chills, Diaphoresis, Fever, Malaise, Loss of Appetite Eyes: No Symptoms Reported. negative: Eye Pain, Discharge ENTM: Nose Congestion. negative: Ear Pain, Nose Discharge, Throat Pain Respiratoy: Productive Cough, Short of Breath, Wheezing. negative: Hemoptysis Cardiovascular: Chest Pain. negative: Edema Gastrointestinal/Abdominal: Abdominal Pain, Nausea, Vomiting Genitourinary: No Symptoms Reported. negative: Dysuria, Frequency, Hematuria Neurological: Headache, Weakness, Dizziness Musculoskeletal: Muscle Pain Integumentary: negative: Rash, Bruises, Juandice Endocrine: No Symptoms Reported. negative: Flushing, Increased Thirst, Increased Urine All Other Systems: Reviewed and Negative PE - Vital Signs Vitals: Temperature 97.4 F Pulse Rate 97 Respiratory Rate 20 Blood Pressure [Left Arm] 145/67 Blood Pressure [Right Arm] 118/56 Blood Pressure 148/81 O2 Sat by Pulse Oximetry 93 - General Limitations: No Limitations General Appearance: Alert - Head Head Exam: Normal Inspection - Eyes Eye exam: Normal Appearance - ENT ENT Exam: Normal External Ear Exam External Ear Exam: Normal External Inspection TM/Canal Exam: Bilateral Normal Nose Exam: Normal Nose Exam Mouth Exam: Normal Inspection Throat Exam: Normal Inspection - Neck Neck Exam: Trachea Midline - Chest Chest Inspection: Symmetric Chest Wall Rise - Respiratory Respiratory Exam: Normal Lung Sounds Bilat Respiratory Exam: Bilateral Rhonchi, Lower Rhonchi - Cardiovascular Cardiovascular Exam: Regular Rate, Normal Rhythm, Normal Heart Sounds - Abdominal Exam Abdominal Exam: Normal Bowel Sounds, Soft. negative: Tenderness - Extremities Extremities Exam: Normal Inspection - Back Back Exam: Normal Inspection - Neurologic Neurological Exam: Alert, Oriented X3 - Psychiatric Psychiatric Exam: Normal Affect, Normal Mood - Skin Skin Exam: Normal Color MDM - Differential Diagnosis Differential Diagnosis: MIGRAINE, DYSPNEA, COPD EXACERBATION, CHF, CHEST PAIN Course - Treatment Treatment: SEE ORDERS. - Education/Counseling Education/Counseling: Patient, Education Educated On: Treatment, Diagnosis, Needs for Follow Up ROR - Labs Reviewed Laboratory Results Reviewed?: Yes Result Diagrams: 04/01/17 08:48 04/01/17 08:48 Laboratory: WBC 5.3 X10^3/uL (3.6-10.0) 04/01/17 08:48 RBC 4.50 X10^6/uL (3.5-5.4) 04/01/17 08:48 Hgb 12.9 g/dL (12.0-16.0) 04/01/17 08:48 Hct 38.2 % (36.0-47.0) 04/01/17 08:48 MCV 84.8 fL (80.0-100.0) 04/01/17 08:48 MCH 28.8 pg (27.0-34.0) 04/01/17 08:48 MCHC 33.9 g/dL (33.0-35.0) 04/01/17 08:48 RDW 15.0 % (11.6-16.5) 04/01/17 08:48 Plt Count 253 X10^3/uL (150.0-450.0) 04/01/17 08:48 MPV 8.1 fL (7.4-11.0) 04/01/17 08:48 Neut % 59.0 % (42.0-75.0) 04/01/17 08:48 Lymph % 30.4 % (21.0-51.0) 04/01/17 08:48 Cooper % 7.3 % (0.0-13.0) 04/01/17 08:48 Eos % 2.7 % (0.9-2.9) 04/01/17 08:48 Baso % 0.6 % (0.2-1.0) 04/01/17 08:48 Neut # 3.1 x10^3/uL (2.2-4.8) 04/01/17 08:48 Lymph # 1.6 X10^3/uL (1.3-2.9) 04/01/17 08:48 Cooper # 0.4 x10^3/uL (0.3-0.8) 04/01/17 08:48 Eos # 0.1 x10^3/uL (0.0-0.2) 04/01/17 08:48 Baso # 0.0 X10^3/uL (0.0-0.1) 04/01/17 08:48 Absolute Nucleated RBC 0.0 /100WBC 04/01/17 08:48 Sodium 138 mmol/L (136-145) 04/01/17 08:48 Corrected Sodium 141 mmol/L (136-145) 04/01/17 08:48 Potassium 3.6 mmol/L (3.5-5.1) 04/01/17 08:48 Chloride 101 mmol/L (98-107) 04/01/17 08:48 Carbon Dioxide 30.0 mmol/L (21-32) 04/01/17 08:48 BUN 11 mg/dL (7-18) 04/01/17 08:48 Creatinine 0.88 mg/dL (0.55-1.02) 04/01/17 08:48 Est GFR (MDRD) Af Amer > 60 (>60) 04/01/17 08:48 Est GFR (MDRD) Non-Af > 60 (>60) 04/01/17 08:48 Glucose 209 mg/dL (65-99) H 04/01/17 08:48 Calcium 8.7 mg/dL (8.5-10.1) 04/01/17 08:48 Corrected Calcium 9.3 mg/dL (8.5-10.1) 04/01/17 08:48 Total Bilirubin 0.20 mg/dL (0.2-1.0) 04/01/17 08:48 AST 11 Units/L (15-37) L 04/01/17 08:48 ALT 32 Units/L (12-78) 04/01/17 08:48 Alkaline Phosphatase 187 Units/L (46-116) H 04/01/17 08:48 Creatine Kinase 73 Units/L (26-192) 04/01/17 08:48 CK-MB (CK-2) < 1.0 ng/mL (0-4.0) 04/01/17 08:48 CK/CKMB % Calc 1.4 % (<4) 04/01/17 08:48 Troponin I < 0.02 ng/mL (0-1.5) 04/01/17 08:48 B-Natriuretic Peptide 7.2 pg/mL (0-79) 04/01/17 08:48 Total Protein 8.3 g/dL (6.4-8.2) H 04/01/17 08:48 Albumin 3.3 g/dL (3.4-5.0) L 04/01/17 08:48 Globulin 5.0 g/dL (2.5-4.5) H 04/01/17 08:48 Albumin/Globulin Ratio 0.7 Ratio (1.1-2.1) L 04/01/17 08:48 - XRAY XRAY Interpreted by: Radiologist XRAY Findings: REPORT DISCUSS WITH PATIENT. - EKG Rhythm: NSR (EKG NOTED) - Diagnosis Discharge Problem: COPD (chronic obstructive pulmonary disease) Qualifiers: COPD type: COPD with acute exacerbation Qualified Code(s): J44.1 - Chronic obstructive pulmonary disease with (acute) exacerbation Dyspnea Qualifiers: Dyspnea type: shortness of breath Qualified Code(s): R06.02 - Shortness of breath Migraine Qualifiers: Migraine type: without aura Status migrainosus presence: without status migrainosus Intractability: intractable Qualified Code(s): G43.019 - Migraine without aura, intractable, without status migrainosus - Discharge Plan Disposition: 01 HOME, SELF-CARE Condition: Stable - Follow ups/Referrals Follow ups/Referrals: ELYSIA COLUNGA [Primary Care Provider] - 3 days - Instructions Instructions: Shortness of Breath, [id number], Migraine Headache, Easy-to- Read, Chronic Obstructive Pulmonary Disease, [id number]
[2017-04-01] MEDS ORDERED: DEMEROL INJ IM ONE (08:33)
[2017-04-01] MEDS ORDERED: PHENERGAN INJ 25 MG IM ONE (08:33)
[2017-04-01] MEDS ORDERED: DEMEROL INJ ONE (08:37)
[2017-04-01] MEDS ORDERED: PHENERGAN INJ 25 MG ONE (08:37)
--- NOTE | 2017-04-01 08:54 | RAD ---
HISTORY: Hard to breath. Disoriented. Study: Single-view chest Comparison: January 09, 2017 Findings: The trachea is midline. The cardiac silhouette is within normal limits. The lungs are clear withou t focal infiltrate or effusion. The bony thorax is unremarkable. IMPRESSION: No acute cardiopulmonary disease. Reported By:
[2017-04-01 09:01] LABS: BASOPHILS % (AUTO) 0.6 % (0.2-1.0); EOSINOPHILS # (AUTO) 0.1 x10^3/uL (0.0-0.2); EOSINOPHILS % (AUTO) 2.7 % (0.9-2.9); HEMATOCRIT 38.2 % (36.0-47.0); HEMOGLOBIN 12.9 g/dL (12.0-16.0); LYMPHOCYTES # (AUTO) 1.6 X10^3/uL (1.3-2.9); LYMPHOCYTES % (AUTO) 30.4 % (21.0-51.0); MEAN CORPUSCULAR HEMOGLOBIN 28.8 pg (27.0-34.0); MEAN CORPUSCULAR HGB CONC 33.9 g/dL (33.0-35.0); MEAN CORPUSCULAR VOLUME 84.8 fL (80.0-100.0); MEAN PLATELET VOLUME 8.1 fL (7.4-11.0); MONOCYTES # (AUTO) 0.4 x10^3/uL (0.3-0.8); MONOCYTES % (AUTO) 7.3 % (0.0-13.0); NEUTROPHILS # (AUTO) 3.1 x10^3/uL (2.2-4.8); PLATELET COUNT 253 X10^3/uL (150.0-450.0); WHITE BLOOD COUNT 5.3 X10^3/uL (3.6-10.0)
[2017-04-01 09:17] LABS: BLOOD UREA NITROGEN 11 mg/dL (7-18); CALCIUM 8.7 mg/dL (8.5-10.1); CHLORIDE 101 mmol/L (98-107); COR NA(FOR HYPERGLY) 141 mmol/L (136-145); CREATININE 0.88 mg/dL (0.55-1.02); GLUCOSE 209 mg/dL (65-99); SODIUM 138 mmol/L (136-145); TROPONIN I < 0.02 ng/mL (0-1.5); eGFR BLACK RACES > 60 (>60); eGFR NON BLACK RACES > 60 (>60)
[2017-04-01 09:21] LABS: ALANINE AMINOTRANSFERASE 32 Units/L (12-78); ALBUMIN 3.3 g/dL (3.4-5.0); ALKALINE PHOSPHATASE 187 Units/L (46-116); ASPARTATE AMINO TRANSFERASE 11 Units/L (15-37); CKMB % 1.4 % (<4); COR CA(FOR HYPOALB) 9.3 mg/dL (8.5-10.1); CREATINE KINASE 73 Units/L (26-192); CREATINE KINASE MB < 1.0 ng/mL (0-4.0); TOTAL PROTEIN 8.3 g/dL (6.4-8.2)
[2017-04-01 09:25] LABS: B-TYPE NATRIURETIC PEPTIDE 7.2 pg/mL (0-79)
== END 2017-04-01 10:12 | disposition home or self-care (01) ==
LOC: ER 08:07
DX: J44.1 Chronic obstructive pulmonary disease with (acute) exacerbation (principal); R06.02 Shortness of breath; G43.019 Migraine without aura, intractable, without status migrainosus
CPT/HCPCS: 36415; 71010; 80053; 82550; 82553; 83880; 84484; 85025; 93005; 93010; 96372; 99283; J2175; J2550

== ENCOUNTER 2017-04-14 02:13 | Emergency (ER) | payer SELFPAY ==
[2017-04-14 02:19] VITALS: BP 147/67; BMI 47.6
--- NOTE | 2017-04-14 02:40 | DR.GENAD ---
HPI - PCP Primary Care Physician: Richard - Complaint/Symptoms Chief Complaint:: Patient states that she has had a migraine since yesterday and none of her current medications have resolved it. She also states that she is experiencing pain in her groin area on the right side of her hip. - Source History Provided: Patient - Mode of Arrival Mode of Arrival: Ambulatory - Timing Onset of Chief Complaint: 04/13/17 PMH - PMH Past Medical History: Yes Past Medical History: CHF, COPD, Diabetes, Dyslipidemia, Hypertension, Hypothyroidism Past Surgical History: Yes Surgical History: Hysterectomy - Family History History of Family Medical Conditions: Yes Family Medical History: Diabetes Mellitus, Cancer, [place], Heart Failure, Hypertension - Social History Does patient currently use any type of tobacco product: No Have you used tobacco products in the last 12 months: No Type of Tobacco Use: None Does any household member use tobacco: No Alcohol Use: None Do you use any recreational Drugs:: No Lives With: Alone Lives Where: Home - infectious screening In the last 2 months have you had wt loss of >10#?: NO Have you had fever, night sweats or hemotysis?: No Have you traveled outside the country in the last 6 months?: No Isolation: Standard ROS - Review of Systems Eyes: No Symptoms Reported ENTM: No Symptoms Reported Respiratoy: No Symptoms Reported Cardiovascular: No Symptoms Reported Gastrointestinal/Abdominal: No Symptoms Reported Genitourinary: No Symptoms Reported Neurological: No Symptoms Reported Musculoskeletal: No Symptoms Reported Integumentary: No Symptoms Reported Hematologic/Lymphatic: No Symptoms Reported Endocrine: No Symptoms Reported Psychiatric: No Symptoms Reported All Other Systems: Reviewed and Negative PE - Vital Signs Vitals: Temperature 97.9 F Pulse Rate 90 Respiratory Rate 18 Blood Pressure [Left Arm] 145/67 Blood Pressure [Right Arm] 118/56 Blood Pressure 147/67 O2 Sat by Pulse Oximetry 92 - General General Appearance: Alert, In No Apparent Distress - Head Head Exam: Normal Inspection, Atraumatic - Eyes Eye exam: Normal Appearance, PERRL, EOMI - ENT ENT Exam: Normal Exam External Ear Exam: Normal External Inspection TM/Canal Exam: Bilateral Normal Nose Exam: Normal Nose Exam Mouth Exam: Normal Inspection Throat Exam: Normal Inspection - Neck Neck Exam: Normal Inspection, Full ROM - Chest Chest Inspection: Normal Inspection - Respiratory Respiratory Exam: Normal Lung Sounds Bilat Respiratory Exam: Bilateral Clear to Auscultation - Cardiovascular Cardiovascular Exam: Regular Rate, Normal Rhythm - Abdominal Exam Abdominal Exam: Normal Inspection, Normal Bowel Sounds Abdominal Tenderness: negative: RUQ, RLQ, LUQ, LLQ, Epigastrium, Suprapubic, Diffuse, Mild, Moderate, Severe, Other - Extremities Extremities Exam: Normal Inspection, Other (right hip pain) - Back Back Exam: Normal Inspection, Full ROM - Neurologic Neurological Exam: Alert, Oriented X3, CN II-XII Intact - Psychiatric Psychiatric Exam: Normal Affect - Skin Skin Exam: Warm, Dry, Intact Course - Reevaluation 1st: Improved ROR - XRAY XRAY Interpreted by: Radiologist (right Hip:There is mild bilateral hip joint degenerative change. Mild SI joints symphysis pubis DJD seen. There is no cortical lucency or malalignment.) - Diagnosis Discharge Problem: Mild DJD right hip, MNild SI joints symphysis pubis DJD Migraine headache Qualifiers: Migraine type: without aura Status migrainosus presence: without status migrainosus Intractability: not intractable Qualified Code(s): G43.009 - Migraine without aura, not intractable, without status migrainosus - Discharge Plan Condition: Stable - Follow ups/Referrals Follow ups/Referrals: ELYSIA COLUNGA [Primary Care Provider] - 3 days - Instructions
[2017-04-14] MEDS ORDERED: PHENERGAN INJ 25 MG ONE (02:44)
[2017-04-14] MEDS ORDERED: DEMEROL INJ ONE (02:45)
[2017-04-14] MEDS: DEMEROL INJ IVP ONE (02:50)
[2017-04-14] MEDS: DEMEROL INJ IM ONE (02:51)
[2017-04-14] MEDS: PHENERGAN INJ 25 MG IM ONE (02:52)
[2017-04-14] MEDS ORDERED: ZOFRAN SYRUP 4 MG UDC ONE (02:52)
[2017-04-14] MEDS: ZOFRAN SYRUP 4 MG UDC PO ONE (02:53)
--- NOTE | 2017-04-14 03:40 | RAD ---
Right hip two views Indication: Right hip pain. Findings: There is mild bilateral hip joint degenerative change. Mild SI joints symphysis pubis DJD seen. There is no cortical lucency or malalignment. Impression: No acute fracture. Mild degenerative change. Reported By:
== END 2017-04-14 04:07 | disposition home or self-care (01) ==
LOC: ER 02:13
DX: M16.11 Unilateral primary osteoarthritis, right hip (principal); M85.30 Osteitis condensans, unspecified site; G43.009 Migraine without aura, not intractable, without status migrainosus
CPT/HCPCS: 73501; 96372; 99283; J2175; J2550; Q0162

== ENCOUNTER 2017-04-24 06:39 | Emergency (ER) | payer SELFPAY ==
[2017-04-24 06:47] VITALS: BP 140/66; BMI 49.1
[2017-04-24] MEDS ORDERED: DEMEROL INJ IM ONE (07:49)
[2017-04-24] MEDS ORDERED: PHENERGAN INJ 25 MG IM ONE (07:49)
--- NOTE | 2017-04-24 07:54 | DR.GENAD ---
HPI - PCP Primary Care Physician: Rachna COLUNGA - Complaint/Symptoms Chief Complaint Doctors Comments: I agree with statement. Patient states that her panic attack started two days ago when she noticed someone on her back porch and she became freighten. She started with her migraine headache and became very nervous Chief Complaint:: PT. C/O SHORTNESS OF BREATH, PAIN IN CHEST, HEADACHE, WHEEZING , AND NAUSEA. PT. STATES YESTERDAY SHE HAD A BAD PANIC ATTACK YESTERDAY AND SHE STILL FEELS ANXIOUS THIS MORNING. - Source History Provided: Patient - Mode of Arrival Mode of Arrival: Ambulatory - Timing Onset of Chief Complaint: 04/23/17 PMH - PMH Past Medical History: Yes Past Medical History: CHF, COPD, Diabetes, Dyslipidemia, Hypertension, Hypothyroidism Past Surgical History: Yes Surgical History: Hysterectomy - Family History History of Family Medical Conditions: Yes Family Medical History: Diabetes Mellitus, Cancer, [place], Heart Failure, Hypertension - Social History Does patient currently use any type of tobacco product: No Have you used tobacco products in the last 12 months: No Type of Tobacco Use: None Does any household member use tobacco: No Alcohol Use: None Do you use any recreational Drugs:: No Lives With: Alone Lives Where: Home - infectious screening In the last 2 months have you had wt loss of >10#?: NO Have you had fever, night sweats or hemotysis?: No Have you traveled outside the country in the last 6 months?: No Isolation: Standard ROS - Review of Systems Eyes: No Symptoms Reported ENTM: No Symptoms Reported Respiratoy: No Symptoms Reported Cardiovascular: No Symptoms Reported Gastrointestinal/Abdominal: No Symptoms Reported Genitourinary: No Symptoms Reported Neurological: No Symptoms Reported Musculoskeletal: No Symptoms Reported Integumentary: No Symptoms Reported Hematologic/Lymphatic: No Symptoms Reported Endocrine: No Symptoms Reported Psychiatric: No Symptoms Reported All Other Systems: Reviewed and Negative PE - Vital Signs Vitals: Temperature 97.4 F Pulse Rate 85 Respiratory Rate 24 Blood Pressure [Left Arm] 145/67 Blood Pressure [Right Arm] 118/56 Blood Pressure 140/66 O2 Sat by Pulse Oximetry 95 - General General Appearance: Alert, In No Apparent Distress - Head Head Exam: Normal Inspection, Atraumatic - Eyes Eye exam: Normal Appearance, PERRL, EOMI - ENT ENT Exam: Normal Exam External Ear Exam: Normal External Inspection TM/Canal Exam: Bilateral Normal Nose Exam: Normal Nose Exam Mouth Exam: Normal Inspection Throat Exam: Normal Inspection - Neck Neck Exam: Normal Inspection - Chest Chest Inspection: Normal Inspection - Respiratory Respiratory Exam: Normal Lung Sounds Bilat Respiratory Exam: Bilateral Clear to Auscultation - Cardiovascular Cardiovascular Exam: Regular Rate, Normal Rhythm - Abdominal Exam Abdominal Exam: Normal Inspection, Normal Bowel Sounds Abdominal Tenderness: negative: RUQ, RLQ, LUQ, LLQ, Epigastrium, Suprapubic, Diffuse, Mild, Moderate, Severe, Other - Extremities Extremities Exam: Normal Inspection - Back Back Exam: Normal Inspection - Neurologic Neurological Exam: Alert, Oriented X3, CN II-XII Intact - Psychiatric Psychiatric Exam: Normal Affect, Normal Mood - Skin Skin Exam: Warm, Dry, Intact - Diagnosis Discharge Problem: Panic attack as reaction to stress Migraine headache Qualifiers: Migraine type: without aura Status migrainosus presence: without status migrainosus Intractability: not intractable Qualified Code(s): G43.009 - Migraine without aura, not intractable, without status migrainosus - Discharge Plan Condition: Stable - Follow ups/Referrals Follow ups/Referrals: ELYSIA COLUNGA [Primary Care Provider] - 3 days - Instructions
[2017-04-24] MEDS ORDERED: PHENERGAN INJ 25 MG ONE (07:59)
[2017-04-24] MEDS ORDERED: DEMEROL INJ ONE (07:59)
== END 2017-04-24 08:21 | disposition home or self-care (01) ==
LOC: ER 06:39
DX: F41.0 Panic disorder [episodic paroxysmal anxiety] (principal); G43.009 Migraine without aura, not intractable, without status migrainosus
CPT/HCPCS: 96372; 99282; J2175; J2550

== ENCOUNTER 2017-05-05 09:59 | Emergency (ER) | payer SELFPAY ==
[2017-05-05 10:03] VITALS: BMI 49.9
[2017-05-05] MEDS ORDERED: ZOFRAN SYRUP 4 MG UDC PO ONE (11:22)
--- NOTE | 2017-05-05 11:24 | DR.GENAD ---
HPI - PCP Primary Care Physician: ELYSIA COLUNGA - Complaint/Symptoms Chief Complaint Doctors Comments: Patient denies fever, vomiting or diarrhea. Chief Complaint:: HARD TO BREATHE, NAUSEATED, COUGHING - Source History Provided: Patient - Mode of Arrival Mode of Arrival: Ambulatory - Timing Onset of Chief Complaint: 04/30/17 PMH - PMH Past Medical History: Yes Past Medical History: CHF, COPD, Diabetes, Dyslipidemia, Hypertension, Hypothyroidism Past Surgical History: Yes Surgical History: Hysterectomy - Family History History of Family Medical Conditions: Yes Family Medical History: Diabetes Mellitus, Cancer, [place], Heart Failure, Hypertension - Social History Does patient currently use any type of tobacco product: No Have you used tobacco products in the last 12 months: No Type of Tobacco Use: None Does any household member use tobacco: No Alcohol Use: None Do you use any recreational Drugs:: No Lives With: Family Lives Where: Home - infectious screening In the last 2 months have you had wt loss of >10#?: NO Have you had fever, night sweats or hemotysis?: No Have you traveled outside the country in the last 6 months?: No Isolation: Standard ROS - Review of Systems Eyes: No Symptoms Reported ENTM: No Symptoms Reported Respiratoy: No Symptoms Reported Cardiovascular: No Symptoms Reported Gastrointestinal/Abdominal: No Symptoms Reported Genitourinary: No Symptoms Reported Neurological: No Symptoms Reported Musculoskeletal: No Symptoms Reported Integumentary: No Symptoms Reported Hematologic/Lymphatic: No Symptoms Reported Endocrine: No Symptoms Reported Psychiatric: No Symptoms Reported PE - Vital Signs Vitals: Temperature 98 F Pulse Rate 100 Respiratory Rate 18 Blood Pressure [Left Arm] 145/67 Blood Pressure [Right Arm] 118/56 Blood Pressure 156/65 O2 Sat by Pulse Oximetry 98 - General Limitations: No Limitations General Appearance: Alert, In No Apparent Distress - Head Head Exam: Normal Inspection, Atraumatic - Eyes Eye exam: Normal Appearance, PERRL, EOMI - ENT ENT Exam: Normal Exam External Ear Exam: Normal External Inspection TM/Canal Exam: Bilateral Normal Nose Exam: Normal Nose Exam Mouth Exam: Normal Inspection Throat Exam: Normal Inspection - Neck Neck Exam: Normal Inspection - Chest Chest Inspection: Normal Inspection - Respiratory Respiratory Exam: Normal Lung Sounds Bilat Respiratory Exam: Bilateral Clear to Auscultation - Cardiovascular Cardiovascular Exam: Regular Rate, Normal Rhythm - Abdominal Exam Abdominal Exam: Normal Inspection Abdominal Tenderness: negative: RUQ, RLQ, LUQ, LLQ, Epigastrium, Suprapubic, Diffuse, Mild, Moderate, Severe, Other - Extremities Extremities Exam: Normal Inspection, Full ROM - Back Back Exam: Normal Inspection, Full ROM - Neurologic Neurological Exam: Alert, Oriented X3, CN II-XII Intact - Psychiatric Psychiatric Exam: Normal Affect, Normal Mood - Skin Skin Exam: Warm, Dry, Intact Course - Reevaluation 1st: Improved ROR - XRAY XRAY Interpreted by: Radiologist (chest: no acute abnormality) - Diagnosis Discharge Problem: Low blood pressure reading, Mild dehydration - Discharge Plan Condition: Stable - Follow ups/Referrals Follow ups/Referrals: ELYSIA COLUNGA [Primary Care Provider] - 3 days - Instructions
[2017-05-05] MEDS ORDERED: ZOFRAN SYRUP 4 MG UDC ONE (11:25)
--- NOTE | 2017-05-05 12:21 | RAD ---
HISTORY: Respiratory difficulty Study: Chest one view Comparison: April 01, 2017, January 09, 2017 Findings: The trachea is midline. The cardiac silhouette is unremarkable. The lungs are clear without focal infiltrate or effusion. The bony thorax is unremarkable. IMPRESSION: 1. No acute cardiopulmonary disease. Reported By:
[2017-05-05 12:34] VITALS: BP 129/60
== END 2017-05-05 12:49 | disposition home or self-care (01) ==
LOC: ER 10:15
DX: E86.0 Dehydration (principal); R03.1 Nonspecific low blood-pressure reading; B34.8 Other viral infections of unspecified site
CPT/HCPCS: 71010; 99282; Q0162

== ENCOUNTER 2017-05-17 13:31 | Emergency (ER) | payer SELFPAY ==
[2017-05-17 13:38] VITALS: BMI 34.9
[2017-05-17 13:41] VITALS: BP 129/68
[2017-05-17] MEDS ORDERED: NS 1000 ML 1,000 ML IV ONE (13:52)
[2017-05-17] MEDS ORDERED: NS 1000 ML 1,000 ML ONE (13:53)
--- NOTE | 2017-05-17 13:53 | DR.HEADACH ---
HPI - Time Seen Time seen: 13:45 - Primary Care Physician Primary Care Physician: CRISTINE RAHMAN - Complaint/Symptoms Chief Complaint Doctors Comments: History as stated. Patient frequently presents with c/o headache. Chief Complaint:: PT C/O BREAKING DOWN ON THE SIDE OF ROAD THIS AM FROM 0800- 1200 AND SHE HAS A MIGRAINE AND SHE THINKS SHE IS HAVING HEAT EXHAUSTION". - Source History Provided: Patient - Mode of Arrival Mode of Arrival: Ambulatory - Timing Onset of Chief Complaint: 05/17/17 - Location Headache Location: Generalized - Severity Headache Severity: Mild PMH - PMH Past Medical History: Yes Past Medical History: CHF, COPD, Diabetes, Dyslipidemia, Hypertension, Hypothyroidism Past Surgical History: Yes Surgical History: Hysterectomy - Family History History of Family Medical Conditions: Yes Family Medical History: Diabetes Mellitus, Cancer, [place], Heart Failure, Hypertension - Social History Does patient currently use any type of tobacco product: No Have you used tobacco products in the last 12 months: No Type of Tobacco Use: None Does any household member use tobacco: No Alcohol Use: None Do you use any recreational Drugs:: No Lives With: Family Lives Where: Home - infectious screening In the last 2 months have you had wt loss of >10#?: NO Have you had fever, night sweats or hemotysis?: No Have you traveled outside the country in the last 6 months?: No Isolation: Standard ROS - Review of Systems Eyes: No Symptoms Reported ENTM: No Symptoms Reported Respiratoy: No Symptoms Reported Cardiovascular: No Symptoms Reported Gastrointestinal/Abdominal: No Symptoms Reported Genitourinary: No Symptoms Reported Neurological: Headache Musculoskeletal: No Symptoms Reported Integumentary: No Symptoms Reported Hematologic/Lymphatic: No Symptoms Reported Endocrine: No Symptoms Reported Psychiatric: No Symptoms Reported All Other Systems: Reviewed and Negative PE - Vital Signs Vitals: Temperature 98.0 F Pulse Rate 90 Respiratory Rate 20 Blood Pressure [Left Arm] 129/60 Blood Pressure [Right Arm] 118/56 Blood Pressure 129/68 O2 Sat by Pulse Oximetry 96 - General Limitations: No Limitations General Appearance: Alert, In No Apparent Distress - Head Head Exam: Normal Inspection, Atraumatic - ENT ENT Exam: Normal Exam, Normal Oropharynx External Ear Exam: Normal External Inspection TM/Canal Exam: Bilateral Normal Nose Exam: Normal Nose Exam, Sinus Tenderness Mouth Exam: Normal Inspection Teeth Exam: Normal Inspection Throat Exam: Normal Inspection - Neck Neck Exam: Normal Inspection - Chest Chest Inspection: Normal Inspection, Symmetric Chest Wall Rise - Respiratory Respiratory Exam: Normal Lung Sounds Bilat Respiratory Exam: Bilateral Clear to Auscultation - Cardiovascular Cardiovascular Exam: Regular Rate, Normal Rhythm - Abdominal Exam Abdominal Exam: Normal Inspection, Normal Bowel Sounds Abdominal Tenderness: negative: RUQ, RLQ, LUQ, LLQ, Epigastrium, Suprapubic, Diffuse, Mild, Moderate, Severe, Other - Extremities Extremities Exam: Normal Inspection, Full ROM - Back Back Exam: Normal Inspection, Full ROM - Neurologic Neurological Exam: Alert, Oriented X3, CN II-XII Intact - Psychiatric Psychiatric Exam: Normal Affect, Normal Mood - Skin Skin Exam: Warm, Dry, Intact Course - Treatment Treatment: Headache improved ROR - Labs Reviewed Laboratory Results Reviewed?: Yes Result Diagrams: 05/17/17 14:00 05/17/17 14:00 Laboratory: WBC 6.4 X10^3/uL (3.6-10.0) 05/17/17 14:00 RBC 4.30 X10^6/uL (3.5-5.4) 05/17/17 14:00 Hgb 12.2 g/dL (12.0-16.0) 05/17/17 14:00 Hct 36.3 % (36.0-47.0) 05/17/17 14:00 MCV 84.5 fL (80.0-100.0) 05/17/17 14:00 MCH 28.3 pg (27.0-34.0) 05/17/17 14:00 MCHC 33.5 g/dL (33.0-35.0) 05/17/17 14:00 RDW 14.0 % (11.6-16.5) 05/17/17 14:00 Plt Count 242 X10^3/uL (150.0-450.0) 05/17/17 14:00 MPV 8.0 fL (7.4-11.0) 05/17/17 14:00 Neut % 57.5 % (42.0-75.0) 05/17/17 14:00 Lymph % 32.3 % (21.0-51.0) 05/17/17 14:00 Nelson % 7.2 % (0.0-13.0) 05/17/17 14:00 Eos % 2.4 % (0.9-2.9) 05/17/17 14:00 Baso % 0.6 % (0.2-1.0) 05/17/17 14:00 Neut # 3.7 x10^3/uL (2.2-4.8) 05/17/17 14:00 Lymph # 2.1 X10^3/uL (1.3-2.9) 05/17/17 14:00 Nelson # 0.5 x10^3/uL (0.3-0.8) 05/17/17 14:00 Eos # 0.2 x10^3/uL (0.0-0.2) 05/17/17 14:00 Baso # 0.0 X10^3/uL (0.0-0.1) 05/17/17 14:00 Absolute Nucleated RBC 0.0 /100WBC 05/17/17 14:00 Sodium 143 mmol/L (136-145) 05/17/17 14:00 Corrected Sodium 143 mmol/L (136-145) 05/17/17 14:00 Potassium 3.6 mmol/L (3.5-5.1) 05/17/17 14:00 Chloride 107 mmol/L (98-107) 05/17/17 14:00 Carbon Dioxide 30.1 mmol/L (21-32) 05/17/17 14:00 BUN 15 mg/dL (7-18) 05/17/17 14:00 Creatinine 0.90 mg/dL (0.55-1.02) 05/17/17 14:00 Est GFR (MDRD) Af Amer > 60 (>60) 05/17/17 14:00 Est GFR (MDRD) Non-Af > 60 (>60) 05/17/17 14:00 Glucose 116 mg/dL (65-99) H 05/17/17 14:00 Calcium 8.4 mg/dL (8.5-10.1) L 05/17/17 14:00 Corrected Calcium 9.1 mg/dL (8.5-10.1) 05/17/17 14:00 Total Bilirubin 0.30 mg/dL (0.2-1.0) 05/17/17 14:00 AST 23 Units/L (15-37) 05/17/17 14:00 ALT 31 Units/L (12-78) 05/17/17 14:00 Alkaline Phosphatase 137 Units/L (46-116) H 05/17/17 14:00 CK-MB (CK-2) < 1.0 ng/mL (0-4.0) 05/17/17 14:00 Total Protein 7.2 g/dL (6.4-8.2) 05/17/17 14:00 Albumin 3.1 g/dL (3.4-5.0) L 05/17/17 14:00 Globulin 4.1 g/dL (2.5-4.5) 05/17/17 14:00 Albumin/Globulin Ratio 0.8 Ratio (1.1-2.1) L 05/17/17 14:00 - Diagnosis Discharge Problem: Heat exhaustion Qualifiers: Encounter type: initial encounter Qualified Code(s): T67.5XXA - Heat exhaustion , unspecified, initial encounter Migraine headache Qualifiers: Migraine type: unspecified Status migrainosus presence: without status migrainosus Intractability: not intractable Qualified Code(s): G43.909 - Migraine, unspecified, not intractable, without status migrainosus - Discharge Plan Condition: Stable - Follow ups/Referrals Follow ups/Referrals: ELYSIA COLUNGA [Primary Care Provider] - 3 days - Instructions
[2017-05-17 14:11] LABS: BASOPHILS % (AUTO) 0.6 % (0.2-1.0); EOSINOPHILS # (AUTO) 0.2 x10^3/uL (0.0-0.2); EOSINOPHILS % (AUTO) 2.4 % (0.9-2.9); HEMATOCRIT 36.3 % (36.0-47.0); HEMOGLOBIN 12.2 g/dL (12.0-16.0); LYMPHOCYTES # (AUTO) 2.1 X10^3/uL (1.3-2.9); LYMPHOCYTES % (AUTO) 32.3 % (21.0-51.0); MEAN CORPUSCULAR HEMOGLOBIN 28.3 pg (27.0-34.0); MEAN CORPUSCULAR HGB CONC 33.5 g/dL (33.0-35.0); MEAN CORPUSCULAR VOLUME 84.5 fL (80.0-100.0); MONOCYTES # (AUTO) 0.5 x10^3/uL (0.3-0.8); MONOCYTES % (AUTO) 7.2 % (0.0-13.0); NEUTROPHILS # (AUTO) 3.7 x10^3/uL (2.2-4.8); NEUTROPHILS % (AUTO) 57.5 % (42.0-75.0); PLATELET COUNT 242 X10^3/uL (150.0-450.0); WHITE BLOOD COUNT 6.4 X10^3/uL (3.6-10.0)
[2017-05-17 14:28] LABS: ALANINE AMINOTRANSFERASE 31 Units/L (12-78); ALBUMIN 3.1 g/dL (3.4-5.0); ALKALINE PHOSPHATASE 137 Units/L (46-116); ASPARTATE AMINO TRANSFERASE 23 Units/L (15-37); BLOOD UREA NITROGEN 15 mg/dL (7-18); CALCIUM 8.4 mg/dL (8.5-10.1); CARBON DIOXIDE 30.1 mmol/L (21-32); CHLORIDE 107 mmol/L (98-107); COR CA(FOR HYPOALB) 9.1 mg/dL (8.5-10.1); COR NA(FOR HYPERGLY) 143 mmol/L (136-145); CREATINE KINASE MB < 1.0 ng/mL (0-4.0); GLUCOSE 116 mg/dL (65-99); SODIUM 143 mmol/L (136-145); TOTAL PROTEIN 7.2 g/dL (6.4-8.2); eGFR BLACK RACES > 60 (>60); eGFR NON BLACK RACES > 60 (>60)
[2017-05-17] MEDS ORDERED: ZOFRAN INJ 4 MG VIAL IVP ONE (14:35)
[2017-05-17] MEDS ORDERED: TORADOL 30 MG VIAL IVP ONE (14:43)
[2017-05-17] MEDS ORDERED: ZOFRAN INJ 4 MG VIAL ONE (14:45)
[2017-05-17] MEDS ORDERED: TORADOL 30 MG VIAL ONE (14:54)
== END 2017-05-17 15:45 | disposition home or self-care (01) ==
LOC: ER 13:31
DX: G43.909 Migraine, unspecified, not intractable, without status migrainosus (principal); T67.5XXA Heat exhaustion, unspecified, initial encounter
CPT/HCPCS: 36415; 80053; 82553; 85025; 96365; 96374; 96375; 99282; 99283; A4222; J1885; J2405

== ENCOUNTER 2017-05-19 07:03 | Emergency (ER) | payer SELFPAY ==
[2017-05-19 07:13] VITALS: BP 179/95; BMI 48.1
[2017-05-19] MEDS ORDERED: PHENERGAN INJ 25 MG IM ONE (07:26)
[2017-05-19] MEDS ORDERED: DEMEROL INJ IM ONE (07:26)
[2017-05-19] MEDS ORDERED: PHENERGAN INJ 25 MG ONE (07:28)
[2017-05-19] MEDS ORDERED: DEMEROL INJ ONE (07:28)
--- NOTE | 2017-05-19 08:19 | DR.GENAD ---
HPI - PCP Primary Care Physician: CRISTINE - HPI Comment HPI Comment: SEEN IN ED RECENTLY WITH HEADACHE WELL. - Complaint/Symptoms Chief Complaint Doctors Comments: MIGRAINE HEADACHE WITH NAUSEA AND VOMITING. HOME MEDS NOT HELPING. Chief Complaint:: NAUSEA TIMES3 DAYS,MIGRAINE Self Treatment fo Chief Complaint: CAME TO ER ON SATURDAY, GAVE ME RX OF ULTRAM. MIGHT WELL HAVE BEEN [employer] HAS NOT HELPED. BEEN TAKING OTC NAUSEA MEDS. - Nurses notes reviewed Nurses Notes Review: Yes - Source History Provided: Patient - Mode of Arrival Mode of Arrival: Ambulatory - Timing Onset of Chief Complaint: 05/16/17 Came on: Gradually - Duration Duration: Days - Severity Severity: Moderate PMH - PMH Past Medical History: Yes Past Medical History: CHF, COPD, Diabetes, Dyslipidemia, Hypertension, Hypothyroidism Past Surgical History: Yes Surgical History: Hysterectomy - Family History History of Family Medical Conditions: Yes Family Medical History: Diabetes Mellitus, Cancer, [place], Heart Failure, Hypertension - Social History Alcohol Use: None Do you use any recreational Drugs:: No Lives With: Alone Lives Where: Home - infectious screening In the last 2 months have you had wt loss of >10#?: NO Have you had fever, night sweats or hemotysis?: No Have you traveled outside the country in the last 6 months?: No Isolation: Standard ROS - Review of Systems Constitutional: No Symptoms Reported Eyes: No Symptoms Reported ENTM: No Symptoms Reported Respiratoy: No Symptoms Reported Cardiovascular: No Symptoms Reported Gastrointestinal/Abdominal: Nausea, Vomiting Genitourinary: No Symptoms Reported Neurological: Headache Musculoskeletal: No Symptoms Reported Integumentary: No Symptoms Reported Hematologic/Lymphatic: No Symptoms Reported Endocrine: No Symptoms Reported All Other Systems: Reviewed and Negative PE - Vital Signs Vitals: Temperature 97.6 F Pulse Rate 89 Respiratory Rate 20 Blood Pressure [Left Arm] 129/60 Blood Pressure [Right Arm] 118/56 Blood Pressure 179/95 O2 Sat by Pulse Oximetry 94 - General Limitations: No Limitations General Appearance: Alert - Head Head Exam: Normal Inspection - Eyes Eye exam: Normal Appearance - ENT ENT Exam: Normal External Ear Exam External Ear Exam: Normal External Inspection TM/Canal Exam: Bilateral Normal Nose Exam: Normal Nose Exam Mouth Exam: Normal Inspection Throat Exam: Normal Inspection - Neck Neck Exam: Normal Inspection - Chest Chest Inspection: Symmetric Chest Wall Rise - Respiratory Respiratory Exam: Normal Lung Sounds Bilat Respiratory Exam: Bilateral Clear to Auscultation - Cardiovascular Cardiovascular Exam: Regular Rate, Normal Rhythm, Normal Heart Sounds - Abdominal Exam Abdominal Exam: Normal Inspection, Normal Bowel Sounds, Tenderness - Extremities Extremities Exam: Normal Inspection - Back Back Exam: Normal Inspection - Neurologic Neurological Exam: Alert, Oriented X3 - Psychiatric Psychiatric Exam: Normal Affect, Normal Mood - Skin Skin Exam: Normal Color MDM - Differential Diagnosis Differential Diagnosis: MIGRAINE HEADACHE Course - Treatment Treatment: SEE ORDER. - Education/Counseling Education/Counseling: Patient, Education Educated On: Treatment, Diagnosis, Needs for Follow Up - Diagnosis Discharge Problem: Migraine Qualifiers: Migraine type: with aura Status migrainosus presence: without status migrainosus Intractability: intractable Qualified Code(s): G43.119 - Migraine with aura, intractable, without status migrainosus - Discharge Plan Disposition: HOME, SELF-CARE Condition: Stable Prescriptions: [id number] [Fioricet Tab] 1 tab PO Q8H PRN #20 tab PRN Reason: Migraine Headache Promethazine HCl [PHENERGAN TAB 25 MG *] 25 mg PO Q8H PRN #15 tab PRN Reason: Nausea/Vomiting - Follow ups/Referrals Follow ups/Referrals: ELYSIA COLUNGA [Primary Care Provider] - 3 days - Instructions Instructions: Migraine Headache, [id number] Additional Instructions: RETURN TO ED IF WORSE.
== END 2017-05-19 08:27 | disposition home or self-care (01) ==
LOC: ER 07:03
DX: G43.119 Migraine with aura, intractable, without status migrainosus (principal)
CPT/HCPCS: 96372; 99282; J2175; J2550

== ENCOUNTER → 2017-06-27 | Outpatient (CLI) | payer SELFPAY ==
[2017-06-27 13:00] LABS: BASOPHILS % (AUTO) 0.7 % (0.2-1.0); EOSINOPHILS # (AUTO) 0.1 x10^3/uL (0.0-0.2); EOSINOPHILS % (AUTO) 2.1 % (0.9-2.9); HEMATOCRIT 41.3 % (36.0-47.0); HEMOGLOBIN 14.1 g/dL (12.0-16.0); LYMPHOCYTES # (AUTO) 1.9 X10^3/uL (1.3-2.9); MEAN CORPUSCULAR HEMOGLOBIN 28.9 pg (27.0-34.0); MEAN CORPUSCULAR HGB CONC 34.1 g/dL (33.0-35.0); MEAN CORPUSCULAR VOLUME 84.6 fL (80.0-100.0); MEAN PLATELET VOLUME 8.1 fL (7.4-11.0); MONOCYTES # (AUTO) 0.4 x10^3/uL (0.3-0.8); MONOCYTES % (AUTO) 7.1 % (0.0-13.0); NEUTROPHILS # (AUTO) 3.2 x10^3/uL (2.2-4.8); NEUTROPHILS % (AUTO) 57.1 % (42.0-75.0); PLATELET COUNT 254 X10^3/uL (150.0-450.0); RED BLOOD COUNT 4.89 X10^6/uL (3.5-5.4); RED CELL DISTRIBUTION WIDTH 14.5 % (11.6-16.5); WHITE BLOOD COUNT 5.7 X10^3/uL (3.6-10.0)
[2017-06-27 13:21] LABS: ALANINE AMINOTRANSFERASE 29 Units/L (12-78); ALBUMIN 3.3 g/dL (3.4-5.0); ALKALINE PHOSPHATASE 185 Units/L (46-116); ASPARTATE AMINO TRANSFERASE 12 Units/L (15-37); BLOOD UREA NITROGEN 13 mg/dL (7-18); CALCIUM 9.5 mg/dL (8.5-10.1); CARBON DIOXIDE 28.9 mmol/L (21-32); CHLORIDE 97 mmol/L (98-107); COR CA(FOR HYPOALB) 10.1 mg/dL (8.5-10.1); COR NA(FOR HYPERGLY) 141 mmol/L (136-145); CREATININE 0.99 mg/dL (0.55-1.02); TOTAL PROTEIN 8.1 g/dL (6.4-8.2); eGFR BLACK RACES > 60 (>60); eGFR NON BLACK RACES > 60 (>60)
[2017-06-27 13:23] LABS: SODIUM 135 mmol/L (136-145)
== END ==
LOC: LAB 12:15
PROVIDERS: ATTEND Nurse Practitioner Family
DX: F43.10 Post-traumatic stress disorder, unspecified (principal); F32.89 Other specified depressive episodes; F41.8 Other specified anxiety disorders
CPT/HCPCS: 36415; 80053; 84443; 85025

== ENCOUNTER 2017-07-15 19:25 | Emergency (ER) | payer SELFPAY ==
[2017-07-15 19:32] VITALS: BP 158/69; BMI 49.9
[2017-07-15] MEDS ORDERED: TORADOL 60 MG VIAL IM ONE (20:51)
--- NOTE | 2017-07-15 20:52 | DR.GENAD ---
HPI - PCP Primary Care Physician: ELYSIA COLUNGA - Complaint/Symptoms Chief Complaint:: PATIENT C/O FALLING AT 3:30 THIS AFTERNOON. PATIENT REPORTS LEFT KNEE PAIN, LOWER BACK PAIN, RIGHT HIP PAIN, AND HEADACHE. PATIENT STATES SHE HIT HER HEAD ON [employer]- DENIES LOC. - Source History Provided: Patient - Mode of Arrival Mode of Arrival: Ambulatory - Timing Onset of Chief Complaint: 07/15/17 PMH - PMH Past Medical History: Yes Past Medical History: CHF, COPD, Diabetes, Dyslipidemia, Hypertension, Hypothyroidism Past Surgical History: Yes Surgical History: Hysterectomy - Family History History of Family Medical Conditions: Yes Family Medical History: Diabetes Mellitus, Cancer, [place], Heart Failure, Hypertension - Social History Type of Tobacco Use: None Alcohol Use: None Do you use any recreational Drugs:: No Lives With: Family Lives Where: Home - infectious screening In the last 2 months have you had wt loss of >10#?: NO Have you had fever, night sweats or hemotysis?: No Have you traveled outside the country in the last 6 months?: No Isolation: Standard ROS - Review of Systems Eyes: No Symptoms Reported ENTM: No Symptoms Reported Respiratoy: No Symptoms Reported Cardiovascular: No Symptoms Reported Gastrointestinal/Abdominal: No Symptoms Reported Genitourinary: No Symptoms Reported Neurological: No Symptoms Reported Musculoskeletal: Back (lumbar pain), Ankle (left pain) Integumentary: No Symptoms Reported Hematologic/Lymphatic: No Symptoms Reported Endocrine: No Symptoms Reported Psychiatric: No Symptoms Reported All Other Systems: Reviewed and Negative PE - Vital Signs Vitals: Temperature 98.3 F Pulse Rate 83 Respiratory Rate 20 Blood Pressure [Left Arm] 129/60 Blood Pressure [Right Arm] 118/56 Blood Pressure 158/69 O2 Sat by Pulse Oximetry 94 - General Limitations: No Limitations General Appearance: Alert, In No Apparent Distress - Head Head Exam: Normal Inspection, Atraumatic - Eyes Eye exam: Normal Appearance, PERRL, EOMI - ENT ENT Exam: Normal Exam External Ear Exam: Normal External Inspection TM/Canal Exam: Bilateral Normal Nose Exam: Normal Nose Exam Mouth Exam: Normal Inspection Throat Exam: Normal Inspection - Neck Neck Exam: Normal Inspection - Chest Chest Inspection: Normal Inspection - Respiratory Respiratory Exam: Normal Lung Sounds Bilat Respiratory Exam: Bilateral Clear to Auscultation - Cardiovascular Cardiovascular Exam: Regular Rate, Normal Rhythm - Abdominal Exam Abdominal Exam: Normal Inspection, Normal Bowel Sounds - Extremities Extremities Exam: Normal Inspection, Edema (bilateral ankles) - Back Back Exam: Normal Inspection, Tenderness (low lumbar) - Neurologic Neurological Exam: Alert, Oriented X3, CN II-XII Intact - Psychiatric Psychiatric Exam: Normal Affect - Skin Skin Exam: Warm, Dry Course - Reevaluation 1st: Unchanged ROR - XRAY XRAY Interpreted by: Radiologist (CT Lumbar spine: No evidence for acute fracture or subluxatin identified. Vertebral body heights are preserved. The disc spaces are mainted. There are mild facet degenerative changes seen at L4- 5 and L5-S1 without listhesis. There are degenerative changes at the scaroiliac joints also noted. The surrounding paraspinous soft tissues are normal in their noncontrasted appearnace. Impression: Normal Lumbar spine) XRAY Findings: Ankles with soft tissue swelling - Diagnosis Discharge Problem: Mild ankle sprain Qualifiers: Encounter type: initial encounter Laterality: unspecified laterality Qualified Code(s): S93.409A - Sprain of unspecified ligament of unspecified ankle, initial encounter - Discharge Plan Condition: Stable - Follow ups/Referrals Follow ups/Referrals: ELYSIA COLUNGA [Primary Care Provider] - 3 days - Instructions
[2017-07-15] MEDS ORDERED: TORADOL 60 MG VIAL ONE (20:56)
--- NOTE | 2017-07-15 21:41 | CT ---
HISTORY: Fall, low back pain Study: CT lumbar spine without contrast Comparison: None Technique: Multiple axial images of the lumbar spine without the administration of IV contrast. Sag ittal and coronal reformats were performed and reviewed. Dose reduction techniques including Automat ed Exposure Control (AEC) and adjustment of mA and kV were utilized. Findings: Alignment of the lumbar spine is maintained. No evidence for acute fracture or subluxation identifie d. Vertebral body heights are preserved. The disc spaces are maintained. There are mild facet degene rative changes seen at L4-5 and L5-S1 without listhesis. There are degenerative changes at the sacroi liac joints also noted. The surrounding paraspinous soft tissues are normal in their noncontrasted a ppearance. IMPRESSION: 1.No osseous abnormality of the lumbar spine. Reported By:
--- NOTE | 2017-07-15 21:54 | RAD ---
HISTORY: Left ankle pain status post fall. Study: Three views of the left ankle. Comparison: Left ankle series dated May 30, 2013. Findings: Soft tissue swelling is seen about the left ankle. No significant effusion. No acute fracture disloca tion. The talar dome and ankle mortise appear intact. Small calcaneal enthesophytes. IMPRESSION: Soft tissue swelling without acute osseous abnormality. Reported By:
[2017-07-15] MEDS ORDERED: DEMEROL INJ IM ONE (21:58)
--- NOTE | 2017-07-15 21:58 | CT ---
HISTORY: Right hip pain after fall Study: CT pelvis without contrast Comparison: None Technique: Multiple axial images of pelvis were obtained after/ without/ both prior to and after the administrat ion of IV contrast. Dose reduction techniques including Automated Exposure Control (AEC) and adjustm ent of mA and kV were utilized. Findings: The soft tissues and osseous structures are unremarkable. The vascular structures are unremarkable. N o pathologically enlarged lymph nodes are identified. The visualized intrapelvic contents are unremar kable. There are degenerative changes noted at the pubic symphysis. There are surgical clips noted in the left pelvis. The uterus is removed. Normal appendix. No free fluid identified. IMPRESSION:; 1. No acute osseous abnormality of the pelvis. Reported By:
[2017-07-15] MEDS ORDERED: DEMEROL INJ ONE (22:01)
== END 2017-07-15 22:30 | disposition home or self-care (01) ==
LOC: ER 19:35
DX: S93.409A Sprain of unspecified ligament of unspecified ankle, initial encounter (principal); W19.XXXA Unspecified fall, initial encounter; Y92.9 Unspecified place or not applicable; M79.89 Other specified soft tissue disorders
CPT/HCPCS: 72131; 72192; 73610; 96372; 99283; J1885; J2175

== ENCOUNTER 2017-08-02 18:36 | Emergency (ER) | payer SELFPAY ==
[2017-08-02 18:42] VITALS: BMI 48.4
[2017-08-02 19:29] LABS: BILIRUBIN,URINE NEGATIVE (NEGATIVE); BLOOD/HEMOGLOBIN,URINE NEGATIVE (NEGATIVE); GLUCOSE, URINE 3+ (NEGATIVE); KETONES,URINE NEGATIVE (NEGATIVE); LEUKOCYTE ESTERASE ,URINE 1+ (NEGATIVE); NITRITES,URINE NEGATIVE (NEGATIVE); PROTEIN,URINE 2+ (NEGATIVE); UROBILINOGEN,URINE NORMAL (NORMAL)
[2017-08-02 20:00] LABS: APPEARANCE,URINE CLEAR (CLEAR); BACTERIA,URINE TRACE /HPF (NEGATIVE); COLOR,URINE YELLOW (YELLOW); MUCUS,URINE FEW /HPF (NEGATIVE); RBC,URINE 0-3 /HPF (NEGATIVE); SQUAMOUS EPITHELIAL CELL,UR FEW /HPF (NEGATIVE)
[2017-08-02] MEDS ORDERED: DEMEROL INJ IM ONE (20:34)
[2017-08-02] MEDS ORDERED: PHENERGAN INJ 25 MG IM ONE (20:35)
--- NOTE | 2017-08-02 20:42 | DR.GENAD ---
HPI - Complaint/Symptoms Chief Complaint Doctors Comments: Patient states she was walking across the yard at home about seven hours ago and fell landing on her right elbow and left hand jamming the third finger of the left hand with her not being able to fully extend her third finger. She is having neck pain; states she turned her head when she fell to protect her face and she has been having neck pain when she turn her head. States she has been having back pain like she has a kidnery infection but denies dysuria, hematuria, fever or chills. States her glucose has been running from 160 to 300 at home and she is taking three different insulins for her glucose daily. States she takes Levemir 60units qhs; Noloin 40 units tid; Novolog [address] Rmaos. States she has had a tetanus within the last five years. States the pain is 8 of 10. She denies head trauma, LOC or hitting her back. Chief Complaint:: PT STATES THAT SHE FELL AROUND LUNCH TODAY AND HER NECK AND LT MIDDLE FINGER HURTS. ALSO C/O LOWER BACK PAIN AND BURNING ON URINATION. Self Treatment fo Chief Complaint: PT STATES THAT SHE KNOWS SHE HAS A KIDNEY INFECTION - Nurses notes reviewed Nurses Notes Review: Yes - Source History Provided: Patient - Mode of Arrival Mode of Arrival: Ambulatory - Timing Onset of Chief Complaint: 08/02/17 Came on: Suddenly - Duration Duration: Constant How lon Duration: Hours - Severity Severity: Moderate - Modifying Factors Worsens:: movement of neck Improves:: nothing PMH - PMH Past Medical History: Yes Past Medical History: CHF, COPD, Diabetes, Dyslipidemia, Hypertension, Hypothyroidism Past Surgical History: Yes Surgical History: Abdominal Surgery, Hysterectomy, Ortho Surgery - Family History History of Family Medical Conditions: Yes Family Medical History: Diabetes Mellitus, Cancer, [place], Heart Failure, Hypertension - Social History Do you use any recreational Drugs:: No - infectious screening Have you traveled outside the country in the last 6 months?: No ROS - Review of Systems Constitutional: No Symptoms Reported. negative: See HPI, Chills, Diaphoresis, Fever, Malaise, Weakness, Irritable, Fatigue, Loss of Appetite, Other Eyes: No Symptoms Reported. negative: See HPI, Eye Pain, Blurred Vision, Tearing, Discharge, Photophobia, Diplopia, Other ENTM: No Symptoms Reported. negative: See HPI, Ear Pain, Ear Discharge, Pulling on Ears, Hearing Loss, Nose Pain, Nose Discharge, Epistaxis, Nose Congestion, Mouth Pain, Mouth Swelling, Loose Teeth, Drooling, Throat Pain, Throat Swelling, Ear Foreign Body Respiratoy: No Symptoms Reported. negative: See HPI, Productive Cough, Non- Productive Cough, Moist Cough, Dry Cough, Hacking Cough, Barking Cough, Brassy Cough, Orthopnea, Short of Breath, Stridor, Wheezing, Hemoptysis, Other Cardiovascular: No Symptoms Reported. negative: See HPI, Chest Pain, Edema, Palpitations, Syncope, Cyanosis, Skin Mottling, Other Gastrointestinal/Abdominal: No Symptoms Reported. negative: See HPI, Abdominal Pain, Constipation, Diarrhea, Nausea, Vomiting, Food Intolerance, Other Genitourinary: No Symptoms Reported, Dysuria, Frequency. negative: See HPI, Discharge, Hematuria, Pain, Bleeding, Other Neurological: No Symptoms Reported. negative: See HPI, Anxiety, Depressed, Emotional Problems, Headache, Numbness, Paresthesia, Pre-existing Deficit, Seizure, Tingling, Tremors, Weakness, Dizziness, Problems Walking, Speech Problem, Other Musculoskeletal: No Symptoms Reported, Neck Pain, Left, Arm (right arm with 4 cm abrasion), Hand (left hand with swelling and ecchymosis third finger), Knee ( left knee with superificial scratches x2 linear;no bleeding ) Integumentary: No Symptoms Reported, Wound (right elbow with 4 cm abrasion with slight swelling) Hematologic/Lymphatic: No Symptoms Reported. negative: See HPI, Anemia, Blood Clots, Easy Bleeding, Easy Bruising, Swollen Glands, Lymphadenopathy, Other Endocrine: No Symptoms Reported Psychiatric: No Symptoms Reported. negative: See HPI, Anxiety, Depression, Hallucinations, Excessive crying, Suicidal, Other PE - Vital Signs Vitals: Temperature 97.8 F Pulse Rate 87 Respiratory Rate 18 Blood Pressure [Left Arm] 129/60 Blood Pressure [Right Arm] 118/56 Blood Pressure 187/77 O2 Sat by Pulse Oximetry 97 - General Limitations: No Limitations. negative: Language Barrier, Altered Mental Status , Physical Limitation, Other General Appearance: Alert, In Distress (slight). negative: In No Apparent Distress, Appears Intoxicated, Anxious, Lethargic, Obtunded, Obese, Cachectic, Other - Head Head Exam: Normal Inspection, Atraumatic, Normocephalic - Eyes Eye exam: Normal Appearance, PERRL, EOMI. negative: Scleral Icterus, Conjunctival Injection, Nystagmus, Miosis, Mydrasis, Periorbital Swelling, Periorbital Tenderness, Other - ENT ENT Exam: Normal Exam, Normal Oropharynx, Normal External Ear Exam, Mucous Membranes Moist, TM's Normal Bilaterally External Ear Exam: Normal External Inspection. negative: Auricular Hematoma, Auricular Trauma, Mastoid Tenderness, Pain with Movement, External Tenderness, Periauricular Adenopathy, Other TM/Canal Exam: Bilateral Normal Nose Exam: Normal Nose Exam Mouth Exam: Normal Inspection Throat Exam: Normal Inspection. negative: Tonsillar Erythema, Tonsillomegaly, Tonsillar Exudate, R Peritonsillar Mass, L Peritonsillar Mass, Muffled Voice, Other - Neck Neck Exam: Normal Inspection, Full ROM, Trachea Midline, Tenderness (tenderness on flexion of neck; no swelling). negative: Meningismus, Lymphadenopathy, Thyromegaly, Other - Chest Chest Inspection: Normal Inspection, Symmetric Chest Wall Rise. negative: Tenderness, Rash, Abscess, Other - Respiratory Respiratory Exam: Normal Lung Sounds Bilat, Accessory Muscle Use. negative: Chest Wall Tenderness, Prolonged Expiratory Phase, Respiratory Distress, Stridor , Other Respiratory Exam: Bilateral Clear to Auscultation - Cardiovascular Cardiovascular Exam: Regular Rate, Normal Rhythm, Normal Heart Sounds. negative : Bradycardia, Tachycardia, Irregular Rhythm, Systolic Murmur, Diastolic Murmur , Rubs, Gallop, Clicks, JVD, +S1, +S2, +S3, +S4, Other - Abdominal Exam Abdominal Exam: Normal Inspection, Normal Bowel Sounds, Soft. negative: Distention, Tenderness, Guarding, Rebound, Rigidity, Dimnished Bowel Sounds, Hyperactive Bowel Sounds, Hypoactive Bowel Sounds, Organomegaly, Trauma, Incision, Ascites, Mass, Bruit, Pulsatile Mass, Hernia, Other Abdominal Tenderness: negative: RUQ, RLQ, LUQ, LLQ, Epigastrium, Suprapubic, Diffuse, Mild, Moderate, Severe, Other - Extremities Extremities Exam: Normal Inspection, Full ROM, Tenderness (right elbow with swelling; 4 cm abraion right elbow), Normal Capillary Refill. negative: Joint Swelling (left hand with swelling 3rd finger) - Back Back Exam: Normal Inspection, Full ROM. negative: Tenderness, (R) CVA Tenderness, (L) CVA Tenderness, Muscle Spasm, Paraspinal Tenderness, Vertebral Tenderness, Rashes, (R) Sciatic Notch Tenderness, (L) Sciatic Notch Tendern, (R ) Straight Leg Raise, (L) Straight Leg Raise, Other - Neurologic Neurological Exam: Alert, Oriented X3, CN II-XII Intact, Reflexes Normal. negative: Normal Gait (gait not tested), Motor Sensory Deficit - Psychiatric Psychiatric Exam: Normal Affect, Normal Mood. negative: Depressed, Agitated, Anxious, Flat Affect, Manic, Homicidal Ideation, Suicidal Ideation, Other - Skin Skin Exam: Warm, Dry, Intact, Normal Color. negative: Diaphoresis (right elbow with 4 cm abrasion; left hand with swelling 3rd finger with ecchymosis) ROR - Labs Reviewed Laboratory Results Reviewed?: Yes (all labs and x-ray results reviewed and discussed with patient) Laboratory: Specimen Type Clean catch urine 08/02/17 19:23 Urine Color Yellow (YELLOW) 08/02/17 19:23 Urine Appearance Clear (CLEAR) 08/02/17 19:23 Urine pH 6.0 (5.0 - 8.0) 08/02/17 19:23 Ur Specific [place] 1.020 (1.000-1.030) 08/02/17 19:23 Urine Protein 2+ (NEGATIVE) 08/02/17 19:23 Urine Glucose (UA) 3+ (NEGATIVE) 08/02/17 19:23 Urine Ketones Negative (NEGATIVE) 08/02/17 19:23 Urine Occult Blood Negative (NEGATIVE) 08/02/17 19:23 Urine Nitrite Negative (NEGATIVE) 08/02/17 19:23 Urine Bilirubin Negative (NEGATIVE) 08/02/17 19:23 Urine Urobilinogen Normal (NORMAL) 08/02/17 19:23 Ur Leukocyte Esterase 1+ (NEGATIVE) 08/02/17 19:23 Urine RBC 0-3 /HPF (NEGATIVE) 08/02/17 19:23 Urine WBC 0-3 /HPF (NEGATIVE) 08/02/17 19:23 Ur Squamous Epith Cells Few /HPF (NEGATIVE) 08/02/17 19:23 Urine Bacteria Trace /HPF (NEGATIVE) 08/02/17 19:23 Urine Mucus Few /HPF (NEGATIVE) 08/02/17 19:23 Ur Culture Indicated? No/not indicated 08/02/17 19:23 - Other Results Comments: Xray left hand: no fracture, malalighment or apreciable degenerartive changes. - XRAY XRAY Interpreted by: Radiologist (right elbow: no fracture or dislocation), Both (right elbow: no fracture, dislocation or malalignment noted) XRAY Findings: CT cervical spine: No CT evidence of acute ceravical spine injury. - Diagnosis Discharge Problem: Neck pain, Muscle strain, Diabetes mellitus Fall at home Qualifiers: Encounter type: initial encounter Qualified Code(s): W19.XXXA - Unspecified fall, initial encounter; Y92.099 - Unspecified place in other non-institutional residence as the place of occurrence of the external cause; Y92.099 - Unspecified place in other non-institutional residence as the place of occurrence of the external cause Contusion of left hand including fingers Qualifiers: Encounter type: initial encounter Qualified Code(s): S60.222A - Contusion of left hand, initial encounter; S60.00XA - Contusion of unspecified finger without damage to nail, initial encounter; S60.00XA - Contusion of unspecified finger without damage to nail, initial encounter Abrasion of right elbow Qualifiers: Encounter type: initial encounter Qualified Code(s): S50.311A - Abrasion of right elbow, initial encounter - Discharge Plan Disposition: 01 HOME, SELF-CARE Condition: Stable Prescriptions: Acetaminophen with Codeine [Tylenol/Codeine #3 300-30 mg] 1 tab PO Q4-6H PRN # 24 tab PRN Reason: Pain Mupirocin Oint [BACTROBAN OINT 2%] 1 applic EXT BID #22 gm Naproxen [Naprosyn] 500 mg PO BID PRN #24 tab PRN Reason: Pain/Inflammation - Follow ups/Referrals Follow ups/Referrals: ELYSIA RAMOS [Primary Care Provider] - 3 days - Instructions Instructions: Fall Prevention in the Home, [id number], Neck Contusion, Easy- to-Read, Musculoskeletal Pain
[2017-08-02] MEDS ORDERED: PHENERGAN INJ 25 MG ONE (20:48)
[2017-08-02] MEDS ORDERED: DEMEROL INJ ONE (20:48)
--- NOTE | 2017-08-02 21:15 | RAD ---
Three views of the right elbow Indication: Trauma with elbow pain. Conclusion: The right elbow shows no fracture, joint effusion or malalignment. Reported By:
--- NOTE | 2017-08-02 21:17 | CT ---
CT cervical spine without contrast Indication: Fall Technique: Helical CT images of the cervical spine were obtained without IV contrast. Reformatted perico ges in the coronal and sagittal planes were also generated for review. Comparison: None Findings: Vertebral body heights and alignment are normal. No acute fracture or subluxation is identi fied. Apart from mild multilevel facet arthropathy, no significant degenerative changes are appreciat ed. There is no prevertebral soft tissue swelling. The visualized upper lungs are clear. Impression: No CT evidence of acute cervical spine injury. Reported By:
--- NOTE | 2017-08-02 21:17 | RAD ---
Three views of the left hand Indication: Trauma with left pain. Conclusion: The left hand shows no fracture, malalignment or appreciable degenerative changes. Reported By:
[2017-08-02 21:59] VITALS: BP 175/72
== END 2017-08-02 21:55 | disposition home or self-care (01) ==
LOC: ER 18:45
DX: S60.222A Contusion of left hand, initial encounter (principal); S60.00XA Contusion of unspecified finger without damage to nail, initial encounter; S50.311A Abrasion of right elbow, initial encounter; S39.012A Strain of muscle, fascia and tendon of lower back, initial encounter; M54.2 Cervicalgia; E11.9 Type 2 diabetes mellitus without complications; W19.XXXA Unspecified fall, initial encounter; Y92.099 Unspecified place in other non-institutional residence as the place of occurrence of the external cause
CPT/HCPCS: 72125; 73070; 73130; 81001; 99283; J2175; J2550

== ENCOUNTER 2017-08-27 22:04 | Emergency (ER) | payer SELFPAY ==
[2017-08-27 22:11] VITALS: BMI 47.1
[2017-08-28] MEDS ORDERED: ZOFRAN INJ 4 MG VIAL ONE (01:05)
[2017-08-28] MEDS ORDERED: ZOFRAN INJ 4 MG VIAL IM ONE (01:10)
--- NOTE | 2017-08-28 01:16 | DR.GENAD ---
HPI - PCP Primary Care Physician: ELYSIA COLUNGA - Complaint/Symptoms Chief Complaint Doctors Comments: Elevated BP and nausea. There was associated nausea and dizziness. She had no chest pain. Chief Complaint:: "MY BLOOD PRESSURE WAS 200/99, I TOOK MY MEDICINE 45 MINS AGO. I AM SO DIZZY AND MY FACE FEELS SO HOT, AND I HAVE A HEADACHE OVER MY LEFT EYE." Self Treatment fo Chief Complaint: AMLODIPINE 5MG PO. DOXAZOSIN 1MG PO - Nurses notes reviewed Nurses Notes Review: Yes - Source History Provided: Patient - Mode of Arrival Mode of Arrival: Ambulatory - Timing Onset of Chief Complaint: 08/27/17 PMH - PMH Past Medical History: Yes Past Medical History: CHF, COPD, Diabetes, Dyslipidemia, Hypertension, Hypothyroidism Past Surgical History: Yes Surgical History: Abdominal Surgery, Hysterectomy, Ortho Surgery - Family History History of Family Medical Conditions: Yes Family Medical History: Diabetes Mellitus, Cancer, [place], Heart Failure, Hypertension - Social History Does patient currently use any type of tobacco product: No Have you used tobacco products in the last 12 months: No Type of Tobacco Use: None Does any household member use tobacco: No Alcohol Use: None Do you use any recreational Drugs:: No Lives With: Alone Lives Where: Home - infectious screening Have you traveled outside the country in the last 6 months?: No Isolation: Standard ROS - Review of Systems Constitutional: No Symptoms Reported Eyes: No Symptoms Reported ENTM: No Symptoms Reported Respiratoy: No Symptoms Reported Cardiovascular: No Symptoms Reported Gastrointestinal/Abdominal: Nausea Genitourinary: No Symptoms Reported Neurological: Dizziness Musculoskeletal: No Symptoms Reported Integumentary: No Symptoms Reported Hematologic/Lymphatic: No Symptoms Reported Endocrine: No Symptoms Reported Psychiatric: No Symptoms Reported All Other Systems: Reviewed and Negative PE - Vital Signs Vitals: Temperature 98.2 F Pulse Rate 83 Respiratory Rate 20 Blood Pressure [Left Arm] 126/58 Blood Pressure [Right Arm] 118/56 Blood Pressure 178/84 O2 Sat by Pulse Oximetry 94 - General Limitations: No Limitations General Appearance: Alert, In No Apparent Distress - Head Head Exam: Normal Inspection - Eyes Eye exam: Normal Appearance - ENT ENT Exam: Normal Exam Throat Exam: Normal Inspection - Neck Neck Exam: Normal Inspection - Chest Chest Inspection: Normal Inspection - Respiratory Respiratory Exam: Normal Lung Sounds Bilat - Cardiovascular Cardiovascular Exam: Regular Rate, Normal Rhythm - Abdominal Exam Abdominal Exam: Normal Inspection, Normal Bowel Sounds, Soft - Extremities Extremities Exam: Normal Inspection - Back Back Exam: Normal Inspection - Neurologic Neurological Exam: Alert, Oriented X3, CN II-XII Intact - Psychiatric Psychiatric Exam: Normal Affect, Normal Mood Course - Reevaluation 1st: Improved (BP is improving and dizziness has stopped) - Education/Counseling Education/Counseling: Patient, Family Educated On: Treatment, Diagnosis, Prognosis, Needs for Follow Up - Diagnosis Discharge Problem: Uncontrolled hypertension, Nausea - Discharge Plan Disposition: 01 HOME, SELF-CARE Condition: Stable - Follow ups/Referrals Follow ups/Referrals: ELYSIA COLUNGA [Primary Care Provider] - 3 days - Instructions Instructions: Nausea, Adult, Form - Blood Pressure Record Sheet, Hypertension, [id number]
[2017-08-28 01:24] VITALS: BP 126/58
== END 2017-08-28 01:23 | disposition home or self-care (01) ==
LOC: ER 22:04
DX: I10 Essential (primary) hypertension (principal); R11.0 Nausea
CPT/HCPCS: 96372; 99282; J2405

== ENCOUNTER 2017-09-04 08:01 | Emergency (ER) | payer SELFPAY ==
[2017-09-04 08:07] VITALS: BMI 47.1
--- NOTE | 2017-09-04 09:10 | DR.HTN ---
HPI - Time Seen Time seen: 09:00 - Primary Care Physician Primary Care Physician: Rachna COLUNGA - Complaints Chief Complaint Doctors Comments: Feeling lightheaded, dizzy and with left sided facial headache this morning. Her BP was elevated. She had seen her PCP a few days ago and they were going to call in medication adjustments to her pharmacy but when she checked with the pharmacy, the new orders have not been received yet. She takes Norvasc 5 mg daily and another med that she doesn't recollect the name. Chief Complaint:: PT. C/O HIGH BLOOD PRESSURE, DIZZINESS, NAUSEA, AND FEELING FAINT. - Reviewed Nurses Notes Reviewed: Yes - Source History Provided: Patient - Mode of Arrival Mode of Arrival: Ambulatory - Timing Onset of Chief Complaint: 09/04/17 PMH - PMH Past Medical History: Yes Past Medical History: CHF, COPD, Diabetes, Dyslipidemia, Hypertension, Hypothyroidism Past Surgical History: Yes Surgical History: Abdominal Surgery, Hysterectomy, Ortho Surgery - Family History History of Family Medical Conditions: Yes Family Medical History: Diabetes Mellitus, Cancer, [place], Heart Failure, Hypertension - Social History Does patient currently use any type of tobacco product: No Have you used tobacco products in the last 12 months: No Type of Tobacco Use: None Does any household member use tobacco: No Alcohol Use: None Do you use any recreational Drugs:: No Lives With: Alone Lives Where: Home - infectious screening In the last 2 months have you had wt loss of >10#?: NO Have you had fever, night sweats or hemotysis?: No Have you traveled outside the country in the last 6 months?: No Isolation: Standard ROS - Review of Systems Constitutional: No Symptoms Reported Eyes: No Symptoms Reported ENTM: No Symptoms Reported Respiratoy: No Symptoms Reported Cardiovascular: No Symptoms Reported Genitourinary: No Symptoms Reported Neurological: Headache, Dizziness Musculoskeletal: No Symptoms Reported Integumentary: No Symptoms Reported Hematologic/Lymphatic: No Symptoms Reported Endocrine: No Symptoms Reported Psychiatric: No Symptoms Reported All Other Systems: Reviewed and Negative PE - Vital Signs Vitals: Temperature 98.3 F Pulse Rate 84 Respiratory Rate 22 Blood Pressure [Left Arm] 126/58 Blood Pressure [Right Arm] 115/54 Blood Pressure 186/84 O2 Sat by Pulse Oximetry 93 - General Limitations: No Limitations General Appearance: Alert, In No Apparent Distress - Head Head Exam: Normal Inspection - Eyes Eye exam: Normal Appearance - ENT ENT Exam: Normal Exam - Neck Neck Exam: Normal Inspection - Chest Chest Inspection: Normal Inspection - Respiratory Respiratory Exam: Normal Lung Sounds Bilat - Cardiovascular Cardiovascular Exam: Regular Rate, Normal Rhythm - Abdominal Exam Abdominal Exam: Normal Inspection, Normal Bowel Sounds, Soft - Extremities Extremities Exam: Normal Inspection - Back Back Exam: Normal Inspection - Neurologic Neurological Exam: Alert, Oriented X3, CN II-XII Intact - Psychiatric Psychiatric Exam: Normal Affect, Normal Mood - Skin Skin Exam: Warm, Dry, Intact, Normal Color Course - Reevaluation 1st: Improved 2nd: Resolved - Education/Counseling Education/Counseling: Family Educated On: Treatment (She is to increase the Amlodipine/Norvasc from 5 mg daily to 10 mg daily. continue current dose of Doxazosin 1 mg daily.), Diagnosis , Prognosis, Needs for Follow Up ROR - Labs Reviewed Result Diagrams: 09/04/17 09:32 09/04/17 09:32 Laboratory: WBC 5.5 X10^3/uL (3.6-10.0) 09/04/17 09:32 RBC 5.17 X10^6/uL (3.5-5.4) 09/04/17 09:32 Hgb 14.6 g/dL (12.0-16.0) 09/04/17 09:32 Hct 43.5 % (36.0-47.0) 09/04/17 09:32 MCV 84.2 fL (80.0-100.0) 09/04/17 09:32 MCH 28.2 pg (27.0-34.0) 09/04/17 09:32 MCHC 33.5 g/dL (33.0-35.0) 09/04/17 09:32 RDW 14.1 % (11.6-16.5) 09/04/17 09:32 Plt Count 238 X10^3/uL (150.0-450.0) 09/04/17 09:32 MPV 8.4 fL (7.4-11.0) 09/04/17 09:32 Neut % 61.0 % (42.0-75.0) 09/04/17 09:32 Lymph % 28.7 % (21.0-51.0) 09/04/17 09:32 Riley % 6.9 % (0.0-13.0) 09/04/17 09:32 Eos % 2.5 % (0.9-2.9) 09/04/17 09:32 Baso % 0.9 % (0.2-1.0) 09/04/17 09:32 Neut # 3.3 x10^3/uL (2.2-4.8) 09/04/17 09:32 Lymph # 1.6 X10^3/uL (1.3-2.9) 09/04/17 09:32 Riley # 0.4 x10^3/uL (0.3-0.8) 09/04/17 09:32 Eos # 0.1 x10^3/uL (0.0-0.2) 09/04/17 09:32 Baso # 0.1 X10^3/uL (0.0-0.1) 09/04/17 09:32 Absolute Nucleated RBC 0.1 /100WBC 09/04/17 09:32 Sodium 135 mmol/L (136-145) L 09/04/17 09:32 Corrected Sodium 140 mmol/L (136-145) 09/04/17 09:32 Potassium 4.0 mmol/L (3.5-5.1) 09/04/17 09:32 Chloride 97 mmol/L (98-107) L 09/04/17 09:32 Carbon Dioxide 26.2 mmol/L (21-32) 09/04/17 09:32 BUN 13 mg/dL (7-18) 09/04/17 09:32 Creatinine 0.80 mg/dL (0.55-1.02) 09/04/17 09:32 Est GFR (MDRD) Af Amer > 60 (>60) 09/04/17 09:32 Est GFR (MDRD) Non-Af > 60 (>60) 09/04/17 09:32 Glucose 325 mg/dL (65-99) H 09/04/17 09:32 Calcium 9.3 mg/dL (8.5-10.1) 09/04/17 09:32 Corrected Calcium TNP 09/04/17 09:32 Total Bilirubin 0.30 mg/dL (0.2-1.0) 09/04/17 09:32 AST 20 Units/L (15-37) 09/04/17 09:32 ALT 37 Units/L (12-78) 09/04/17 09:32 Alkaline Phosphatase 190 Units/L (46-116) H 09/04/17 09:32 Creatine Kinase 54 Units/L (26-192) 09/04/17 09:32 CK-MB (CK-2) 1.0 ng/mL (0-4.0) 09/04/17 09:32 CK/CKMB % Calc 1.9 % (<4) 09/04/17 09:32 Troponin I < 0.02 ng/mL (0-1.5) 09/04/17 09:32 Total Protein 8.4 g/dL (6.4-8.2) H 09/04/17 09:32 Albumin 3.7 g/dL (3.4-5.0) 09/04/17 09:32 Globulin 4.7 g/dL (2.5-4.5) H 09/04/17 09:32 Albumin/Globulin Ratio 0.8 Ratio (1.1-2.1) L 09/04/17 09:32 - EKG Rate: 79 - Diagnosis Discharge Problem: Hypertension, uncontrolled, Uncontrolled type 2 diabetes mellitus with neurologic complication, Headache, LFT elevation - Discharge Plan Disposition: 01 HOME, SELF-CARE Condition: Stable - Follow ups/Referrals Follow ups/Referrals: ELYSIA COLUNGA [Primary Care Provider] - 3 days - Instructions
[2017-09-04] MEDS ORDERED: CATAPRES TAB 0.1 MG PO ONE (09:11)
[2017-09-04] MEDS ORDERED: NORVASC TAB 5 MG PO ONE (09:13)
[2017-09-04] MEDS ORDERED: PHENERGAN INJ 25 MG IM ONE (09:16)
[2017-09-04] MEDS ORDERED: CATAPRES TAB 0.1 MG ONE (09:27)
[2017-09-04] MEDS ORDERED: PHENERGAN INJ 25 MG ONE (09:27)
[2017-09-04 09:53] LABS: BASOPHILS # (AUTO) 0.1 X10^3/uL (0.0-0.1); BASOPHILS % (AUTO) 0.9 % (0.2-1.0); EOSINOPHILS # (AUTO) 0.1 x10^3/uL (0.0-0.2); EOSINOPHILS % (AUTO) 2.5 % (0.9-2.9); HEMATOCRIT 43.5 % (36.0-47.0); HEMOGLOBIN 14.6 g/dL (12.0-16.0); LYMPHOCYTES # (AUTO) 1.6 X10^3/uL (1.3-2.9); LYMPHOCYTES % (AUTO) 28.7 % (21.0-51.0); MEAN CORPUSCULAR HEMOGLOBIN 28.2 pg (27.0-34.0); MEAN CORPUSCULAR HGB CONC 33.5 g/dL (33.0-35.0); MEAN CORPUSCULAR VOLUME 84.2 fL (80.0-100.0); MEAN PLATELET VOLUME 8.4 fL (7.4-11.0); MONOCYTES # (AUTO) 0.4 x10^3/uL (0.3-0.8); MONOCYTES % (AUTO) 6.9 % (0.0-13.0); NEUTROPHILS # (AUTO) 3.3 x10^3/uL (2.2-4.8); PLATELET COUNT 238 X10^3/uL (150.0-450.0); RED BLOOD COUNT 5.17 X10^6/uL (3.5-5.4); RED CELL DISTRIBUTION WIDTH 14.1 % (11.6-16.5); WHITE BLOOD COUNT 5.5 X10^3/uL (3.6-10.0)
[2017-09-04 09:54] LABS: ALANINE AMINOTRANSFERASE 37 Units/L (12-78); ALBUMIN 3.7 g/dL (3.4-5.0); ALKALINE PHOSPHATASE 190 Units/L (46-116); ASPARTATE AMINO TRANSFERASE 20 Units/L (15-37); BLOOD UREA NITROGEN 13 mg/dL (7-18); CALCIUM 9.3 mg/dL (8.5-10.1); CARBON DIOXIDE 26.2 mmol/L (21-32); CHLORIDE 97 mmol/L (98-107); COR NA(FOR HYPERGLY) 140 mmol/L (136-145); SODIUM 135 mmol/L (136-145); TOTAL PROTEIN 8.4 g/dL (6.4-8.2); eGFR BLACK RACES > 60 (>60); eGFR NON BLACK RACES > 60 (>60)
[2017-09-04 10:02] LABS: CKMB % 1.9 % (<4); CREATINE KINASE 54 Units/L (26-192); TROPONIN I < 0.02 ng/mL (0-1.5)
[2017-09-04] MEDS ORDERED: NS 1000 ML 1,000 ML ONE (11:14)
[2017-09-04] MEDS ORDERED: NS 1000 ML 500 ML IV ONE (11:29)
[2017-09-04] MEDS ORDERED: HumaLOG SC ONE (12:06)
[2017-09-04 13:11] VITALS: BP 102/50
[2017-09-04] MEDS ORDERED: SNACK - Diabetic Appropriate PO SCH (20:00)
== END 2017-09-04 13:11 | disposition home or self-care (01) ==
LOC: ER 08:13
DX: I10 Essential (primary) hypertension (principal); E11.49 Type 2 diabetes mellitus with other diabetic neurological complication; R51 Headache; R94.5 Abnormal results of liver function studies
CPT/HCPCS: 36415; 80053; 82550; 82553; 84484; 85025; 93005; 93010; 96365; 96372; 99282; 99283; A4222; J2550

== ENCOUNTER → 2017-10-13 | Emergency (ER) | payer SELFPAY ==
[~2017-10-13] MED LIST: DECADRON INJ ONE; PHENERGAN INJ 25 MG ONE; TORADOL 60 MG VIAL IM ONE; TORADOL 60 MG VIAL ONE
[2017-10-13 06:01] VITALS: BP 136/63; BMI 48.4
--- NOTE | 2017-10-13 06:33 | DR.GENAD ---
HPI - PCP Primary Care Physician: ELYSIA RAMOS - Complaint/Symptoms Chief Complaint Doctors Comments: Patient is complaining of lower back pain for the past 24 hours. States she woke up yesterday with severe lower back pain going to her tail bone and could hardly walk. States she has been taking Alieve but it has not been helping with the pain. She has been having right knee pain and went to see Dr. Ramos and she told her she need an x-ray. States she has been taking antibiotics for a UTI and Dr. Ramos did a culture and her nurse called her but could not pronounce the name of her problem. She denies fever, chills, nauea or vomiting. States the pain is 7 of 10. states she hit her right knee in the admininistrator's office today on a chair and has been having severe right knee pain since. She has been walking but her knee and back has been hurting. She denies any other recent trauma. She denies hematuria. She denies numbness or tingling in her legs. Chief Complaint:: " MY BUTT HURTS ON MY LEFT SIDE I WOKE UP YESTERDAY MORNING WITH IT HURTING SO BAD COULD HARDLY WALK I TOOK ALEVE AND IT HASNT HELP" Self Treatment fo Chief Complaint: ALEVE 10/12/17 @2030 - Nurses notes reviewed Nurses Notes Review: Yes - Source History Provided: Patient - Mode of Arrival Mode of Arrival: Ambulatory - Timing Onset of Chief Complaint: 10/12/17 Came on: Gradually - Duration Duration: Constant How lon Duration: Days - Location Location: lower back pain - Severity Severity: Moderate, Severe - Modifying Factors Worsens:: walking and movement Improves:: nothing PMH - PMH Past Medical History: Yes Past Medical History: CHF, COPD, Diabetes, Dyslipidemia, Hypertension, Hypothyroidism Past Surgical History: Yes Surgical History: Abdominal Surgery, Hysterectomy, Ortho Surgery - Family History History of Family Medical Conditions: Yes Family Medical History: Diabetes Mellitus, Cancer, [place], Heart Failure, Hypertension - Social History Alcohol Use: None Do you use any recreational Drugs:: No - infectious screening Have you traveled outside the country in the last 6 months?: No ROS - Review of Systems Constitutional: No Symptoms Reported. negative: See HPI, Chills, Diaphoresis, Fever, Malaise, Weakness, Irritable, Fatigue, Loss of Appetite, Other Eyes: No Symptoms Reported. negative: See HPI, Eye Pain, Blurred Vision, Tearing, Discharge, Photophobia, Diplopia, Other ENTM: No Symptoms Reported Respiratoy: No Symptoms Reported Cardiovascular: No Symptoms Reported, Edema (swelling lower legs). negative: See HPI, Chest Pain, Palpitations, Syncope, Cyanosis, Skin Mottling, Other Gastrointestinal/Abdominal: No Symptoms Reported Genitourinary: No Symptoms Reported, Dysuria. negative: See HPI, Discharge, Frequency, Hematuria, Pain, Bleeding, Other Neurological: No Symptoms Reported, Problems Walking (right knee pain). negative: See HPI, Anxiety, Depressed, Emotional Problems, Headache, Numbness, Paresthesia, Pre-existing Deficit, Seizure, Tingling, Tremors, Weakness, Dizziness, Speech Problem, Other Musculoskeletal: No Symptoms Reported, Back Pain, Right, Back, Knee Integumentary: No Symptoms Reported. negative: See HPI, Change in Color, Change in Hair/Nails, Dryness, Lesions, Lumps, Rash, Itching, Wound, Bruises, Juandice, Other Hematologic/Lymphatic: No Symptoms Reported Endocrine: No Symptoms Reported, Increased Urine. negative: See HPI, Excessive Sweating, Flushing, Intolerance to Cold, Intolerance to Heat, Increased Hunger, Increased Thirst, Unexplained Weight Gain, Unexplained Weight Loss, Failure to Thrive, Decreased Appetite, Other Psychiatric: No Symptoms Reported. negative: See HPI, Anxiety, Depression, Hallucinations, Excessive crying, Suicidal, Other PE - Vital Signs Vitals: Temperature 98.2 F Pulse Rate 88 Respiratory Rate 20 Blood Pressure [Left Arm] 126/58 Blood Pressure [Right Arm] 102/50 Blood Pressure 136/63 O2 Sat by Pulse Oximetry 92 - General Limitations: No Limitations General Appearance: Alert, In Distress (moderate), Obese. negative: In No Apparent Distress, Appears Intoxicated, Anxious, Lethargic, Obtunded, Cachectic , Other - Head Head Exam: Normal Inspection, Atraumatic, Normocephalic - Eyes Eye exam: Normal Appearance, PERRL, EOMI. negative: Scleral Icterus, Conjunctival Injection, Nystagmus, Miosis, Mydrasis, Periorbital Swelling, Periorbital Tenderness, Other - ENT ENT Exam: Normal Exam, Normal Oropharynx, Normal External Ear Exam, Mucous Membranes Moist, TM's Normal Bilaterally External Ear Exam: Normal External Inspection TM/Canal Exam: Bilateral Normal Nose Exam: Normal Nose Exam. negative: Sinus Tenderness, Nasal Deviation, Crepitus, Septal Hematoma, Laceration, Abrasion, Other Mouth Exam: Normal Inspection. negative: Drooling, Trismus, Lip Swelling, Tongue Elevation, Tongue Swelling, Laceration, Other Throat Exam: Normal Inspection - Neck Neck Exam: Normal Inspection, Full ROM, Trachea Midline. negative: Tenderness, Meningismus, Lymphadenopathy, Thyromegaly, Other - Chest Chest Inspection: Normal Inspection, Symmetric Chest Wall Rise. negative: Tenderness, Rash, Abscess, Other - Respiratory Respiratory Exam: Normal Lung Sounds Bilat Respiratory Exam: Bilateral Clear to Auscultation - Cardiovascular Cardiovascular Exam: Regular Rate, Normal Rhythm, Normal Heart Sounds. negative : Bradycardia, Tachycardia, Irregular Rhythm, Systolic Murmur, Diastolic Murmur , Rubs, Gallop, Clicks, JVD, +S1, +S2, +S3, +S4, Other - Abdominal Exam Abdominal Exam: Normal Inspection, Normal Bowel Sounds, Soft, Dimnished Bowel Sounds (obese; no tenderness or rebound) Abdominal Tenderness: negative: RUQ, RLQ, LUQ, LLQ, Epigastrium, Suprapubic, Diffuse, Mild, Moderate, Severe, Other - Extremities Extremities Exam: Normal Inspection, Full ROM, Tenderness (right knee tender on palpation; no swelling or erythema), Normal Capillary Refill, Edema (trace pretibial edema) - Back Back Exam: Normal Inspection, Full ROM, Tenderness (L3-L4 midline paper machine backtender on palpation). negative: (L) Straight Leg Raise - Neurologic Neurological Exam: Alert, Oriented X3, CN II-XII Intact, Normal Gait, Reflexes Normal - Psychiatric Psychiatric Exam: Normal Affect, Normal Mood - Skin Skin Exam: Warm, Dry, Intact, Normal Color ROR - Labs Reviewed Laboratory Results Reviewed?: Yes (all x-ray results reviewed and discussed with patient. ) Laboratory: Specimen Type Clean catch urine 10/13/17 06:39 Urine Color Yellow (YELLOW) 10/13/17 06:39 Urine Appearance Hazy (CLEAR) 10/13/17 06:39 Urine pH 5.0 (5.0 - 8.0) 10/13/17 06:39 Ur Specific [place] 1.020 (1.000-1.030) 10/13/17 06:39 Urine Protein 2+ (NEGATIVE) 10/13/17 06:39 Urine Glucose (UA) 4+ (NEGATIVE) 10/13/17 06:39 Urine Ketones 1+ (NEGATIVE) 10/13/17 06:39 Urine Occult Blood Negative (NEGATIVE) 10/13/17 06:39 Urine Nitrite Negative (NEGATIVE) 10/13/17 06:39 Urine Bilirubin Negative (NEGATIVE) 10/13/17 06:39 Urine Urobilinogen Normal (NORMAL) 10/13/17 06:39 Ur Leukocyte Esterase 3+ (NEGATIVE) 10/13/17 06:39 Urine RBC 0-2 /HPF (NEGATIVE) 10/13/17 06:39 Urine WBC 3-5 /HPF (NEGATIVE) 10/13/17 06:39 Ur Squamous Epith Cells Few /HPF (NEGATIVE) 10/13/17 06:39 Urine Bacteria Trace /HPF (NEGATIVE) 10/13/17 06:39 Ur Culture Indicated? No/not indicated 10/13/17 06:39 Urine Opiates Screen Negative (NEG=<300) 10/13/17 06:39 Urine Methadone Screen Negative (NEG=<300) 10/13/17 06:39 Ur Barbiturates Screen Negative (NEG=<200) 10/13/17 06:39 Ur Phencyclidine Scrn Negative (NEG=<25) 10/13/17 06:39 Ur Amphetamines Screen Negative (NEG=<1000) 10/13/17 06:39 U Benzodiazepines Scrn Positive (NEG=<200) A 10/13/17 06:39 Urine Cocaine Screen Negative (NEG=<300) 10/13/17 06:39 U Marijuana (THC) Screen Negative (NEG=<50) 10/13/17 06:39 - XRAY XRAY Interpreted by: Radiologist (CT lumbar 07/15/17: No osseous abnormality of the lumbar spine. mild degenerative changes L4-5, L5-S1), Self (Right Knee: No acute fracture or dislocation; early degenerative changes noted), Both ( RIght knee: No acute abnormality of the right knee) XRAY Findings: CT lumbar spine: NO acute abnormality of the lumbar spine. - Diagnosis Discharge Problem: Degenerative disc disease at L5-S1 level Acute low back pain Qualifiers: Back pain laterality: unspecified Sciatica presence: without sciatica Qualified Code(s): M54.5 - Low back pain Contusion of right knee Qualifiers: Encounter type: initial encounter Qualified Code(s): S80.01XA - Contusion of right knee, initial encounter Right knee pain Qualifiers: Chronicity: acute Qualified Code(s): M25.561 - Pain in right knee - Discharge Plan Disposition: HOME, SELF-CARE Condition: Stable Prescriptions: Acetaminophen/Codeine Tab [TYLENOL w/CODEINE #3 (300 MG/30 MG) *] 1 tab PO Q4- 6H PRN #18 tab PRN Reason: Pain Methylprednisolone Dosepak 4Mg [MEDROL DOSEPAK (4 mg tab x 21)] 1 geovanna PO ONCE # 1 geovanna - Follow ups/Referrals Follow ups/Referrals: ELYSIA RAMOS [Primary Care Provider] - 3 days YE BONE [STAFF PHYSICIAN] - 3 days - Instructions Instructions: Knee Pain, Degenerative Disk Disease, Back Pain, Adult, Easy-to- Read
[2017-10-13 06:46] LABS: BILIRUBIN,URINE NEGATIVE (NEGATIVE); BLOOD/HEMOGLOBIN,URINE NEGATIVE (NEGATIVE); GLUCOSE, URINE 4+ (NEGATIVE); KETONES,URINE 1+ (NEGATIVE); LEUKOCYTE ESTERASE ,URINE 3+ (NEGATIVE); NITRITES,URINE NEGATIVE (NEGATIVE); PROTEIN,URINE 2+ (NEGATIVE); UROBILINOGEN,URINE NORMAL (NORMAL)
[2017-10-13 06:57] LABS: APPEARANCE,URINE HAZY (CLEAR); BACTERIA,URINE TRACE /HPF (NEGATIVE); COLOR,URINE YELLOW (YELLOW); RBC,URINE 0-2 /HPF (NEGATIVE); SQUAMOUS EPITHELIAL CELL,UR FEW /HPF (NEGATIVE)
--- NOTE | 2017-10-13 07:45 | CT ---
LUMBAR SPINE CT WITHOUT IV CONTRAST CLINICAL INDICATION: Low back pain TECHNIQUE: Multiple-row detector helical CT examination of the lumbar spine. Axial, sagittal, and cor onal reconstructed images. Dose reduction techniques including Automated Exposure Control (AEC) and a djustment of mA and kV were utlized. COMPARISON: 07/15/2017 for the same indication FINDINGS: There is no evidence of acute fracture or subluxation. Normal alignment is maintained without scolios is or listhesis. Vertebral body heights are maintained. No aggressive osseous lesions are identified. Intervertebral disc space heights are maintained. Evaluation of the individual levels demonstrates n o disc herniation, spinal canal stenosis, or neural foraminal narrowing. IMPRESSION: 1. No acute abnormality of the lumbar spine. Reported By:
--- NOTE | 2017-10-13 07:46 | RAD ---
HISTORY: Trauma with pain Study: 2 views of the right knee Comparison: 9 in 2016 Findings: No acute fractures or dislocations. Joint spaces are maintained. No knee joint effusion. Soft tissues are unremarkable. IMPRESSION: 1. No acute abnormality of the right knee. Reported By:
== END | disposition home or self-care (01) ==
LOC: ER 05:45
DX: M51.36 Other intervertebral disc degeneration, lumbar region (principal); S80.01XA Contusion of right knee, initial encounter; M54.5 Low back pain; M25.561 Pain in right knee; Y33.XXXA Other specified events, undetermined intent, initial encounter; Y92.9 Unspecified place or not applicable
CPT/HCPCS: 72131; 73560; 80307; 81001; 96372; 99282; 99283; G0434; J1100; J1885; J2550

== ENCOUNTER 2017-10-15 08:11 | Inpatient (IN) | payer SELFPAY ==
--- NOTE | 2017-10-15 08:35 | DR.GENAD ---
HPI - PCP Primary Care Physician: ELYSIA COLUNGA - Complaint/Symptoms Chief Complaint Doctors Comments: Patient presented to the ED with complaint of acute onset of left lower extremity edema during the night. She denies trauma, fever or dyspnea. Chief Complaint:: PATIENT STATED THAT SHE WOKE UP AT 3 AM AND IT WAS HARD TO MOVE. SHE STATED THAT SHE HAD TO DRAG HER LEFT LEG DUE TO NOT BEING ABLE TO MOVE. PATIENT STATES THAT THE PAIN IS AWFUL AND SHE CAN'T HELP. - Source History Provided: Patient - Mode of Arrival Mode of Arrival: Wheelchair - Timing Onset of Chief Complaint: 10/15/17 PMH - PMH Past Medical History: Yes Past Medical History: CHF, COPD, Diabetes, Dyslipidemia, Hypertension, Hypothyroidism Past Surgical History: Yes Surgical History: Abdominal Surgery, Hysterectomy, Ortho Surgery - Family History History of Family Medical Conditions: Yes Family Medical History: Diabetes Mellitus, Cancer, [place], Heart Failure, Hypertension - Social History Does patient currently use any type of tobacco product: No Have you used tobacco products in the last 12 months: No Type of Tobacco Use: None Does any household member use tobacco: No Alcohol Use: None Do you use any recreational Drugs:: No Lives With: Family Lives Where: Home - infectious screening In the last 2 months have you had wt loss of >10#?: NO Have you had fever, night sweats or hemotysis?: No Have you traveled outside the country in the last 6 months?: No Isolation: Standard ROS - Review of Systems Constitutional: No Symptoms Reported Eyes: No Symptoms Reported ENTM: No Symptoms Reported Respiratoy: No Symptoms Reported Cardiovascular: No Symptoms Reported Gastrointestinal/Abdominal: No Symptoms Reported Genitourinary: No Symptoms Reported Neurological: No Symptoms Reported Musculoskeletal: Left (lower extremity swelling) Integumentary: No Symptoms Reported Hematologic/Lymphatic: No Symptoms Reported Endocrine: No Symptoms Reported Psychiatric: No Symptoms Reported All Other Systems: Reviewed and Negative PE - Vital Signs Vitals: Temperature 97.3 F Pulse Rate [Left Radial] 109 Pulse Rate 89 Respiratory Rate 18 Blood Pressure [Left Arm] 134/63 Blood Pressure [Right Arm] 102/50 Blood Pressure 158/81 O2 Sat by Pulse Oximetry 98 - General Limitations: No Limitations General Appearance: Alert, In No Apparent Distress - Head Head Exam: Normal Inspection, Atraumatic - Eyes Eye exam: Normal Appearance, PERRL, EOMI - ENT ENT Exam: Normal Exam External Ear Exam: Normal External Inspection TM/Canal Exam: Bilateral Normal Nose Exam: Normal Nose Exam Mouth Exam: Normal Inspection Throat Exam: Normal Inspection - Neck Neck Exam: Normal Inspection, Full ROM - Chest Chest Inspection: Normal Inspection - Respiratory Respiratory Exam: Normal Lung Sounds Bilat Respiratory Exam: Bilateral Clear to Auscultation - Cardiovascular Cardiovascular Exam: Regular Rate - Abdominal Exam Abdominal Exam: Normal Inspection, Distention, Other (protuberant) Abdominal Tenderness: negative: RUQ, RLQ, LUQ, LLQ, Epigastrium, Suprapubic, Diffuse, Mild, Moderate, Severe, Other - Extremities Extremities Exam: Joint Swelling (left lower extremity swelling, tense circumferance 552cm ic690ie of right) - Back Back Exam: Normal Inspection - Neurologic Neurological Exam: Alert, Oriented X3, CN II-XII Intact - Psychiatric Psychiatric Exam: Normal Affect - Skin Skin Exam: Warm, Dry, Intact Course - Treatment Treatment: CTA of chest,abdomen and pelvis: left lower extremity edema - Consultation Called: 13:00 (Dr Jenkins agreed to admit for further treatment :Heparin protocol ) - Education/Counseling Educated On: Treatment, Diagnosis ROR - Labs Reviewed Laboratory Results Reviewed?: Yes (D Dimer [id number]) Result Diagrams: 10/15/17 08:38 10/15/17 08:38 Laboratory: WBC 8.3 X10^3/uL (3.6-10.0) 10/15/17 08:38 RBC 4.53 X10^6/uL (3.5-5.4) 10/15/17 08:38 Hgb 12.8 g/dL (12.0-16.0) 10/15/17 08:38 Hct 39.1 % (36.0-47.0) 10/15/17 08:38 MCV 86.2 fL (80.0-100.0) 10/15/17 08:38 MCH 28.2 pg (27.0-34.0) 10/15/17 08:38 MCHC 32.7 g/dL (33.0-35.0) L 10/15/17 08:38 RDW 14.3 % (11.6-16.5) 10/15/17 08:38 Plt Count 214 X10^3/uL (150.0-450.0) 10/15/17 08:38 MPV 7.9 fL (7.4-11.0) 10/15/17 08:38 Neut % 66.0 % (42.0-75.0) 10/15/17 08:38 Lymph % 24.6 % (21.0-51.0) 10/15/17 08:38 Stephens % 6.9 % (0.0-13.0) 10/15/17 08:38 Eos % 1.9 % (0.9-2.9) 10/15/17 08:38 Baso % 0.6 % (0.2-1.0) 10/15/17 08:38 Neut # 5.5 x10^3/uL (2.2-4.8) H 10/15/17 08:38 Lymph # 2.1 X10^3/uL (1.3-2.9) 10/15/17 08:38 Stephens # 0.6 x10^3/uL (0.3-0.8) 10/15/17 08:38 Eos # 0.2 x10^3/uL (0.0-0.2) 10/15/17 08:38 Baso # 0.0 X10^3/uL (0.0-0.1) 10/15/17 08:38 Absolute Nucleated RBC 0.1 /100WBC 10/15/17 08:38 INR Target Range - 10/15/17 08:38 INR 0.99 (0.8-1.3) 10/15/17 08:38 PTT 26.4 SECONDS (22.9-36.5) 10/15/17 08:38 PTT Comment - 10/15/17 08:38 D-Dimer 3340 ng/mL (0-400) H* 10/15/17 08:38 Sodium 141 mmol/L (136-145) 10/15/17 08:38 Corrected Sodium 144 mmol/L (136-145) 10/15/17 08:38 Potassium 3.7 mmol/L (3.5-5.1) 10/15/17 08:38 Chloride 100 mmol/L (98-107) 10/15/17 08:38 Carbon Dioxide 31.4 mmol/L (21-32) 10/15/17 08:38 BUN 24 mg/dL (7-18) H 10/15/17 08:38 Creatinine 0.84 mg/dL (0.55-1.02) 10/15/17 08:38 Est GFR (MDRD) Af Amer > 60 (>60) 10/15/17 08:38 Est GFR (MDRD) Non-Af > 60 (>60) 10/15/17 08:38 Glucose 243 mg/dL (65-99) H 10/15/17 08:38 Hemoglobin A1c 10.3 % (4.5-6.2) H 10/15/17 08:38 Calcium 9.1 mg/dL (8.5-10.1) 10/15/17 08:38 Corrected Calcium TNP 10/15/17 08:38 Total Bilirubin 0.20 mg/dL (0.2-1.0) 10/15/17 08:38 AST 13 Units/L (15-37) L 10/15/17 08:38 ALT 34 Units/L (12-78) 10/15/17 08:38 Alkaline Phosphatase 186 Units/L (46-116) H 10/15/17 08:38 C-Reactive Protein 24.60 mg/L (0-3.0) H 10/15/17 08:38 Total Protein 8.4 g/dL (6.4-8.2) H 10/15/17 08:38 Albumin 3.5 g/dL (3.4-5.0) 10/15/17 08:38 Globulin 4.9 g/dL (2.5-4.5) H 10/15/17 08:38 Albumin/Globulin Ratio 0.7 Ratio (1.1-2.1) L 10/15/17 08:38 - XRAY XRAY Interpreted by: Radiologist (CT Abd/pel: Subcutaneous soft tissue stranding in the left inguinal region extending to the anterior proximal left thigh. This could be inflammatory or edematous in origion. Unusual cluster of small bowel loops in the left upper quadrant seen to be superior and posterior to the transverse colon. A transmission: Inrternal hernia with minimal partial obstruction is possible. CTA Chest: No evidence of throacic aortic aneurysm or pulmonary embolus. There are changes likely representing pulmonary artery hypertension. Stable interstitial lung disease. No consolidation, adenopathy or fluid is seen. Venous Doppler: Occlusive thrombus throughout the deep system of the left lower extremity. Partially occlusive thrombus within the right femoral vein.) - Diagnosis Discharge Problem: Occlusive Thrombus Left Lower Extremity, Partial occlusive thrombus Rt Femoral Ve COPD (chronic obstructive pulmonary disease) Qualifiers: COPD type: unspecified COPD Qualified Code(s): J44.9 - Chronic obstructive pulmonary disease, unspecified - Discharge Plan Condition: Stable - Follow ups/Referrals Follow ups/Referrals: ELYSIA COLUNGA [Primary Care Provider] - 3 days - Instructions
[2017-10-15] MEDS ORDERED: PHENERGAN INJ 25 MG IV ONE ×2 (08:38→12:32)
[2017-10-15] MEDS ORDERED: DEMEROL INJ IVP ONE ×2 (08:38→12:32)
[2017-10-15] MEDS ORDERED: PHENERGAN INJ 25 MG ONE ×2 (08:45→12:32)
[2017-10-15] MEDS ORDERED: DEMEROL INJ ONE ×2 (08:45→12:32)
[2017-10-15 08:46] LABS: BASOPHILS % (AUTO) 0.6 % (0.2-1.0); EOSINOPHILS # (AUTO) 0.2 x10^3/uL (0.0-0.2); EOSINOPHILS % (AUTO) 1.9 % (0.9-2.9); HEMATOCRIT 39.1 % (36.0-47.0); HEMOGLOBIN 12.8 g/dL (12.0-16.0); LYMPHOCYTES # (AUTO) 2.1 X10^3/uL (1.3-2.9); LYMPHOCYTES % (AUTO) 24.6 % (21.0-51.0); MEAN CORPUSCULAR HEMOGLOBIN 28.2 pg (27.0-34.0); MEAN CORPUSCULAR HGB CONC 32.7 g/dL (33.0-35.0); MEAN CORPUSCULAR VOLUME 86.2 fL (80.0-100.0); MEAN PLATELET VOLUME 7.9 fL (7.4-11.0); MONOCYTES # (AUTO) 0.6 x10^3/uL (0.3-0.8); MONOCYTES % (AUTO) 6.9 % (0.0-13.0); NEUTROPHILS # (AUTO) 5.5 x10^3/uL (2.2-4.8); PLATELET COUNT 214 X10^3/uL (150.0-450.0); RED BLOOD COUNT 4.53 X10^6/uL (3.5-5.4); RED CELL DISTRIBUTION WIDTH 14.3 % (11.6-16.5); WHITE BLOOD COUNT 8.3 X10^3/uL (3.6-10.0)
[2017-10-15 08:59] LABS: ALANINE AMINOTRANSFERASE 34 Units/L (12-78); ALBUMIN 3.5 g/dL (3.4-5.0); ALKALINE PHOSPHATASE 186 Units/L (46-116); ASPARTATE AMINO TRANSFERASE 13 Units/L (15-37); BLOOD UREA NITROGEN 24 mg/dL (7-18); CALCIUM 9.1 mg/dL (8.5-10.1); CARBON DIOXIDE 31.4 mmol/L (21-32); CHLORIDE 100 mmol/L (98-107); COR NA(FOR HYPERGLY) 144 mmol/L (136-145); CREATININE 0.84 mg/dL (0.55-1.02); SODIUM 141 mmol/L (136-145); TOTAL PROTEIN 8.4 g/dL (6.4-8.2); eGFR BLACK RACES > 60 (>60); eGFR NON BLACK RACES > 60 (>60)
--- NOTE | 2017-10-15 10:49 | CT ---
HISTORY: Lymphedema Study: CT abdomen pelvis with contrast Comparison: 08/12/2015 Technique: Axial post-contrast images with coronal and sagittal reformats. Dose reduction procedures were used with mA/kv adjusted for body size. The examination is limited due to the lack of oral contr ast. Findings: The lung bases are clear. The liver is enlarged but without focal space-occupying disease. No opaque stones are visible within the gallbladder. The spleen, adrenal glands, and pancreas are within normal limits. The kidneys are unobstructed and without masses or stones. Calcific atherosclerotic change i s present in a nondilated abdominal aorta. No enlarged intraperitoneal or retroperitoneal lymphadenop athy is identified. There are no findings suggestive of diverticulitis or colitis. There is an unusua l collection of mildly dilated proximal small bowel loops visualized in the left upper quadrant super ior and posterior to the distal transverse colon. These are best visualized on series 7 and coronal i mage 15th distal to those loops the small bowel is normal. The possibility of an internal herniation through the transverse mesocolon should be considered. The dilatation suggests the possibility of mil d partial obstruction. Clinical correlation as the presence or absence of obstructive symptoms is rec ommended. Examination of the pelvis demonstrated no evidence for pelvic masses, pelvic fluid, or pelv ic lymphadenopathy. There is some soft tissue stranding in the left inguinal region extending anterio rly onto the proximal left thigh. No enlarged inguinal adenopathy is identified. This could be due to edema or inflammation. No bladder abnormality is identified. No lytic or blastic skeletal lesions ar e identified. IMPRESSION: Hepatomegaly Subcutaneous soft tissue stranding in the left inguinal region extending to the anterior proximal lef t thigh. This could be inflammatory or edematous in origin. Unusual cluster of small bowel loops in the left upper quadrant seen to be superior and posterior to the transverse colon. A transmission: Internal hernia with minimal partial obstruction is possible. Reported By:
--- NOTE | 2017-10-15 10:54 | CT ---
HISTORY: Left leg swelling, elevated D-dimer, COPD, CHF Study: CTA chest Comparison: 08/19/2015 Technique: Multiple axial images of the chest were obtained from the thoracic inlet to the upper abdo men during the administration of IV contrast. In addition to multi planar reconstructions, MIP recons tructions were performed in sagittal and coronal planes. Dose reduction techniques utilized automatic exposure control. Opacification of the pulmonary arteries is slightly less than optimal secondary to bolus timing and patient's large physical habitus. Findings: The mediastinum does not demonstrate significant pathological lymphadenopathy. There is no pericardi al effusion observed. The thoracic aorta is normal in its contour without evidence for aneurysmal di latation. The central pulmonary arterial system does not demonstrate central filling defects to sugg est pulmonary emboli. Central pulmonary arteries are prominent suggesting pulmonary artery hypertensi on. Evaluation of the lung parenchyma again reveals interstitial lung disease. No evidence of consolidati on or pleural fluid is seen.. No pulmonary nodule or mass can be identified. The bony thorax is unr emarkable in its appearance. There is again evidence of fatty infiltration of the liver. No liver ma ss is seen. Adrenal glands are normal.. IMPRESSION: No evidence of thoracic aortic aneurysm or pulmonary embolus. There are changes likely representing p ulmonary artery hypertension. Stable interstitial lung disease. No consolidation, adenopathy or fluid is seen. Fatty liver. Reported By:
--- NOTE | 2017-10-15 12:58 | VAS ---
HISTORY: Study: Comparison: TECHNIQUE: Multiple malik scale and color flow Doppler images of the deep venous system were obtained of the right and left lower extremity. FINDINGS: The deep venous system of the right and left lower extremities were evaluated from the level of the c ommon femoral vein through the popliteal vein. Left common femoral and popliteal veins demonstrate no color flow, compressibility or augmentation wi th the left femoral vein nonvisualized. Reduced compression, color flow and augmentation within the right femoral vein. Remaining interrogated deep venous structures demonstrate normal color flow, compression and augmenta tion. IMPRESSION: 1. Occlusive thrombus throughout the deep system of the left lower extremity. 2. Partially occlusive thrombus within the right femoral vein. Reported By:
[2017-10-15] MEDS ORDERED: HEPARIN SODIUM INJ 5000 UNITS ONE (13:26)
[2017-10-15] MEDS ORDERED: HEPARIN SODIUM INJ 5000 UNITS IVP ONE ×2 (13:35→23:08)
[2017-10-15] MEDS ORDERED: PHENERGAN TAB 25 MG PO PRN (13:48)
[2017-10-15] MEDS ORDERED: NEURONTIN CAP 100 MG PO SCH (14:00)
[2017-10-15] MEDS ORDERED: INSULIN ASPART 14 UNIT SUBCUT SCH (14:00)
[2017-10-15] MEDS ORDERED: HEPARIN SODIUM IN D5W 25,000 UNITS/500 ML BAG IV ONE (14:03)
[2017-10-15 15:07] LABS: BILIRUBIN,URINE NEGATIVE (NEGATIVE); BLOOD/HEMOGLOBIN,URINE 1+ (NEGATIVE); GLUCOSE, URINE 3+ (NEGATIVE); KETONES,URINE NEGATIVE (NEGATIVE); LEUKOCYTE ESTERASE ,URINE 1+ (NEGATIVE); NITRITES,URINE NEGATIVE (NEGATIVE); PROTEIN,URINE 2+ (NEGATIVE); UROBILINOGEN,URINE NORMAL (NORMAL)
[2017-10-15 15:15] LABS: APPEARANCE,URINE SLIGHTLY HAZY (CLEAR); BACTERIA,URINE NEGATIVE /HPF (NEGATIVE); COLOR,URINE YELLOW (YELLOW); RBC,URINE 0-2 /HPF (NEGATIVE); SQUAMOUS EPITHELIAL CELL,UR NEGATIVE /HPF (NEGATIVE)
[2017-10-15 15:16] LABS: MUCUS,URINE FEW /HPF (NEGATIVE)
--- NOTE | 2017-10-15 15:54 | RAD ---
History: Central line placement Study: Chest single view Findings: Single AP portable view of the chest is performed demonstrating a satisfactory appearance t he heart and mediastinal structures. There is a left subclavian catheter in place tip in the region o f the superior vena cava and no evidence of pneumothorax. Impression: Satisfactory positioning of the left subclavian catheter. Reported By:
[2017-10-15] MEDS ORDERED: NS 1/2 1000 ML IV 1,000 ML IV ONE (16:11)
[2017-10-15] MEDS: NS 1/2 1000 ML IV 1,000 ML IV SCH (16:15)
[2017-10-15] MEDS: REQUIP PO SCH ×2 (16:15→21:43)
[2017-10-15] MEDS: HEPARIN SODIUM IN D5W 25,000 UNITS/500 ML BAG IV PRN (16:15)
[2017-10-15] MEDS ORDERED: FLUVIRIN IM ONE (16:59)
[2017-10-15] MEDS: HYDROCHLOROTHIAZIDE 25 MG TAB PO PRN (19:55)
[2017-10-15] MEDS: NORCO 5/325 MG TAB PO PRN (19:56)
[2017-10-15] MEDS ORDERED: ABILIFY PO SCH (21:00)
[2017-10-15] MEDS ORDERED: PAROXETINE HCL PO SCH (21:00)
[2017-10-15] MEDS ORDERED: RisperDAL TAB 1 MG PO SCH (21:00)
[2017-10-15] MEDS: NEURONTIN TAB 600 MG PO SCH (21:44)
[2017-10-15] MEDS: PAXIL PO SCH (21:44)
[2017-10-15] MEDS: LEVEMIR SC SCH (21:45)
[2017-10-15] MEDS ORDERED: MAG-OX TAB PO ONE (23:26)
[2017-10-16] MEDS: NEURONTIN TAB 600 MG PO SCH (05:56)
[2017-10-16] MEDS: REQUIP PO SCH ×2 (05:56→15:25)
[2017-10-16] MEDS: NORCO 5/325 MG TAB PO PRN (05:57)
[2017-10-16 06:12] LABS: ALANINE AMINOTRANSFERASE 31 Units/L (12-78); ALKALINE PHOSPHATASE 156 Units/L (46-116); ASPARTATE AMINO TRANSFERASE 17 Units/L (15-37); BLOOD UREA NITROGEN 19 mg/dL (7-18); CALCIUM 8.5 mg/dL (8.5-10.1); CARBON DIOXIDE 32.3 mmol/L (21-32); CHLORIDE 97 mmol/L (98-107); COR CA(FOR HYPOALB) 9.3 mg/dL (8.5-10.1); COR NA(FOR HYPERGLY) 140 mmol/L (136-145); CREATININE 0.85 mg/dL (0.55-1.02); MAGNESIUM 1.6 mg/dL (1.7-2.9); SODIUM 136 mmol/L (136-145); TOTAL PROTEIN 7.5 g/dL (6.4-8.2); eGFR BLACK RACES > 60 (>60); eGFR NON BLACK RACES > 60 (>60)
[2017-10-16] MEDS: HEPARIN SODIUM IN D5W 25,000 UNITS/500 ML BAG IV PRN (06:15)
[2017-10-16 06:23] LABS: BASOPHILS % (AUTO) 0.4 % (0.2-1.0); EOSINOPHILS # (AUTO) 0.2 x10^3/uL (0.0-0.2); EOSINOPHILS % (AUTO) 2.2 % (0.9-2.9); HEMATOCRIT 36.2 % (36.0-47.0); LYMPHOCYTES # (AUTO) 1.6 X10^3/uL (1.3-2.9); LYMPHOCYTES % (AUTO) 18.7 % (21.0-51.0); MEAN CORPUSCULAR HEMOGLOBIN 28.9 pg (27.0-34.0); MEAN CORPUSCULAR HGB CONC 33.1 g/dL (33.0-35.0); MEAN CORPUSCULAR VOLUME 87.2 fL (80.0-100.0); MEAN PLATELET VOLUME 8.5 fL (7.4-11.0); MONOCYTES # (AUTO) 0.8 x10^3/uL (0.3-0.8); MONOCYTES % (AUTO) 9.5 % (0.0-13.0); NEUTROPHILS % (AUTO) 69.2 % (42.0-75.0); PLATELET COUNT 211 X10^3/uL (150.0-450.0); RED BLOOD COUNT 4.15 X10^6/uL (3.5-5.4); RED CELL DISTRIBUTION WIDTH 14.5 % (11.6-16.5); WHITE BLOOD COUNT 8.7 X10^3/uL (3.6-10.0)
[2017-10-16] MEDS: NORVASC TAB 10 MG PO SCH (08:39)
[2017-10-16] MEDS: PAXIL PO SCH (08:39)
[2017-10-16] MEDS: COZAAR PO SCH (08:40)
[2017-10-16] MEDS: SYNTHROID 100 mcg TAB PO SCH (08:40)
[2017-10-16] MEDS ORDERED: MOBIC TAB 15 MG PO SCH (09:00)
[2017-10-16] MEDS ORDERED: LYRICA CAP 150 MG PO SCH (09:00)
[2017-10-16 10:01] VITALS: BMI 51.6
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
[2017-10-16] MEDS: COUMADIN TAB 5 MG PO SCH ×2 (12:18→20:05)
[2017-10-16] MEDS ORDERED: HEPARIN SODIUM INJ 5000 UNITS IVP ONE (14:38)
[2017-10-16] MEDS: K-RIDER 10 MEQ/NS 100 ML 10 MEQ/100 ML BAG IV PRN ×3 (15:23→21:15)
[2017-10-16 16:03] LABS: ABG BASE EXCESS 6.8 mmol/L (-2.0-2.0)
[2017-10-16 16:05] LABS: ABG HCO3 36.3 mmol/L (22-26)
[2017-10-16 16:06] LABS: ABG ALLEN TEST POS
--- NOTE | 2017-10-16 16:32 | RAD ---
HISTORY: Elevated D-dimer Study: AP portable chest: Image quality is degraded secondary to patient body habitus Comparison: 10/15/2017 Findings: Low volume inspiration is noted. There appears to be mild pulmonary vascular congestion. The heart size is borderline enlarged. A left-sided central line is present and the tip is at the cavoatrial j unction. No evidence of pneumothorax is noted. IMPRESSION: 1. Borderline cardiomegaly with findings of mild pulmonary vascular congestion. 2. Left-sided central line is present in satisfactory position. Reported By:
[2017-10-16] MEDS ORDERED: POTASSIUM CHL 60 MEQ/NS 0.45% 500 ML IV PRN (17:00)
[2017-10-16] MEDS ORDERED: POTASSIUM CHLORIDE LIQ 20 MEQ UDC PO PRN (17:00)
[2017-10-16] MEDS ORDERED: MAG-OX TAB PO PRN (17:00)
[2017-10-16] MEDS ORDERED: POTASSIUM CHL 40 MEQ/NS 0.45% 500 ML IV PRN (17:00)
[2017-10-16] MEDS ORDERED: K-LYTE EFFERVESCENT PO PRN (17:00)
[2017-10-16] MEDS ORDERED: MAGNESIUM SULFATE 1 GM/100 mL PREMIX 1 GM/100 ML BAG IV PRN (17:00)
[2017-10-16] MEDS ORDERED: NS 1/2 1000 ML IV 1,000 ML IV ONE (17:18)
[2017-10-16] MEDS: HumuLIN R SUBCUT PRN ×2 (17:34→22:01)
[2017-10-16] MEDS: NS 1/2 1000 ML IV 1,000 ML IV SCH (17:34)
[2017-10-16] MEDS: SOLU-Medrol 40 MG VIAL IVP SCH ×2 (19:58→22:11)
[2017-10-16] MEDS: SNACK - Diabetic Appropriate PO SCH (20:00)
[2017-10-16] MEDS: HYDROCHLOROTHIAZIDE 25 MG TAB PO PRN (21:23)
[2017-10-16] MEDS: LEVEMIR SC SCH (22:00)
[2017-10-16] MEDS: TORADOL 15 MG VIAL IVP PRN (22:00)
[2017-10-17] MEDS: HEPARIN SODIUM IN D5W 25,000 UNITS/500 ML BAG IV PRN ×3 (02:25→21:51)
[2017-10-17 05:10] LABS: BASOPHILS % (AUTO) 0.2 % (0.2-1.0); EOSINOPHILS % (AUTO) 0.1 % (0.9-2.9); HEMATOCRIT 36.7 % (36.0-47.0); HEMOGLOBIN 11.9 g/dL (12.0-16.0); LYMPHOCYTES # (AUTO) 0.9 X10^3/uL (1.3-2.9); LYMPHOCYTES % (AUTO) 12.3 % (21.0-51.0); MEAN CORPUSCULAR HEMOGLOBIN 28.3 pg (27.0-34.0); MEAN CORPUSCULAR HGB CONC 32.4 g/dL (33.0-35.0); MEAN CORPUSCULAR VOLUME 87.5 fL (80.0-100.0); MEAN PLATELET VOLUME 8.5 fL (7.4-11.0); MONOCYTES # (AUTO) 0.2 x10^3/uL (0.3-0.8); MONOCYTES % (AUTO) 2.6 % (0.0-13.0); NEUTROPHILS # (AUTO) 6.1 x10^3/uL (2.2-4.8); NEUTROPHILS % (AUTO) 84.8 % (42.0-75.0); PLATELET COUNT 198 X10^3/uL (150.0-450.0); RED BLOOD COUNT 4.19 X10^6/uL (3.5-5.4); RED CELL DISTRIBUTION WIDTH 14.2 % (11.6-16.5); WHITE BLOOD COUNT 7.2 X10^3/uL (3.6-10.0)
[2017-10-17 05:17] LABS: ABG BASE EXCESS 5.9 mmol/L (-2.0-2.0)
[2017-10-17 05:19] LABS: ABG ALLEN TEST POS
[2017-10-17 05:20] LABS: ALANINE AMINOTRANSFERASE 34 Units/L (12-78); ALBUMIN 2.8 g/dL (3.4-5.0); ALKALINE PHOSPHATASE 156 Units/L (46-116); ASPARTATE AMINO TRANSFERASE 20 Units/L (15-37); BLOOD UREA NITROGEN 25 mg/dL (7-18); CALCIUM 8.8 mg/dL (8.5-10.1); CARBON DIOXIDE 32.1 mmol/L (21-32); CHLORIDE 95 mmol/L (98-107); COR CA(FOR HYPOALB) 9.8 mg/dL (8.5-10.1); COR NA(FOR HYPERGLY) 141 mmol/L (136-145); CREATININE 0.98 mg/dL (0.55-1.02); SODIUM 133 mmol/L (136-145); TOTAL PROTEIN 7.7 g/dL (6.4-8.2); eGFR BLACK RACES > 60 (>60); eGFR NON BLACK RACES > 60 (>60)
[2017-10-17] MEDS: SOLU-Medrol 40 MG VIAL IVP SCH ×2 (05:27→14:51)
[2017-10-17] MEDS: TORADOL 15 MG VIAL IVP PRN ×2 (05:50→12:06)
[2017-10-17] MEDS: HumuLIN R SUBCUT PRN ×5 (06:03→21:51)
[2017-10-17] MEDS: COZAAR PO SCH (09:24)
[2017-10-17] MEDS: NORVASC TAB 10 MG PO SCH (09:24)
[2017-10-17] MEDS: SYNTHROID 100 mcg TAB PO SCH ×2 (09:24→17:30)
[2017-10-17] MEDS: LASIX IVP SCH ×2 (10:55→21:50)
[2017-10-17] MEDS: MILK OF MAGNESIA PO SCH ×4 (10:55→21:51)
[2017-10-17] MEDS: COLACE CAP 100 MG PO SCH ×2 (10:55→21:50)
[2017-10-17] MEDS ORDERED: COLACE CAP 100 MG PO SCH (11:00)
[2017-10-17] MEDS ORDERED: MILK OF MAGNESIA PO SCH (11:00)
--- NOTE | 2017-10-17 12:26 | DR.PROGNOT ---
Hospital Progress Notes - Progress Note for Day of: Progress Note Date: 10/17/17 - Chief Complaint Chief Complaint: feeling much better today , more alert and cheerful .. c/o mild to moderate nausea , no vomiting and no abdominal pain . tolerating oral intake well. constipation for 3 days . - History of Present Illness History of Present Illness: no changes. - Past Medical Family Social History Past Med/Fam/Surg Hx: No changes since H&P Allergies: Allergies clarithromycin Allergy (Verified 08/27/17 22:11) hydromorphone Adverse Reaction (Verified 08/27/17 22:11) - Vital Signs Vital Signs: Temperature 98.7 F Pulse Rate [Left Radial] 77 Pulse Rate 89 Respiratory Rate 21 Blood Pressure [Left Arm] 129/66 Blood Pressure [Right Arm] 102/50 Blood Pressure 158/81 O2 Sat by Pulse Oximetry 95 - Physical Exam Oriented: Normal Eyes: Normal Ear: Normal Nose: Normal Throat: Normal Cardiovascular: Edema (left lower extremity edema ) : Normal (no bleeding ), Hematuria GI:Auscultation: Normal GI:Palpation: Normal GI: Tenderness: Diffuse, Mild. negative: Rebound, Guarding, Rigidity Skin: Red, Tender Musculoskeletal: Right (normal exam), Left (swelling up to the groin with 2 + edema but not as tense . no ulceration , all pulses are palpable ), Leg, Swelling Psychiatric: Normal Mood Description: Calm Affect: Normal Speech Pattern: Clear (much alert , coaperative ) - Laboratory and Diagnostics Result Diagrams: 10/17/17 04:30 10/17/17 12:02 Labs: Laboratory WBC 7.2 X10^3/uL (3.6-10.0) 10/17/17 04:30 RBC 4.19 X10^6/uL (3.5-5.4) 10/17/17 04:30 Hgb 11.9 g/dL (12.0-16.0) L 10/17/17 04:30 Hct 36.7 % (36.0-47.0) 10/17/17 04:30 MCV 87.5 fL (80.0-100.0) 10/17/17 04:30 MCH 28.3 pg (27.0-34.0) 10/17/17 04:30 MCHC 32.4 g/dL (33.0-35.0) L 10/17/17 04:30 RDW 14.2 % (11.6-16.5) 10/17/17 04:30 Plt Count 198 X10^3/uL (150.0-450.0) 10/17/17 04:30 MPV 8.5 fL (7.4-11.0) 10/17/17 04:30 Neut % 84.8 % (42.0-75.0) H 10/17/17 04:30 Lymph % 12.3 % (21.0-51.0) L 10/17/17 04:30 [place] % 2.6 % (0.0-13.0) 10/17/17 04:30 Eos % 0.1 % (0.9-2.9) L 10/17/17 04:30 Baso % 0.2 % (0.2-1.0) 10/17/17 04:30 Neut # 6.1 x10^3/uL (2.2-4.8) H 10/17/17 04:30 Lymph # 0.9 X10^3/uL (1.3-2.9) L 10/17/17 04:30 [place] # 0.2 x10^3/uL (0.3-0.8) L 10/17/17 04:30 Eos # 0.0 x10^3/uL (0.0-0.2) 10/17/17 04:30 Baso # 0.0 X10^3/uL (0.0-0.1) 10/17/17 04:30 Absolute Nucleated RBC 0.0 /100WBC 10/17/17 04:30 INR Target Range - 10/17/17 04:30 INR 0.98 (0.8-1.3) 10/17/17 04:30 PTT 74.8 SECONDS (22.9-36.5) H 10/17/17 11:10 PTT Comment - 10/17/17 11:10 D-Dimer 3340 ng/mL (0-400) H* 10/15/17 08:38 Sample Site Rrad 10/17/17 04:56 ABG pH 7.320 (7.35-7.45) L 10/17/17 04:56 ABG pCO2 66.0 mmHg (35.0-45.0) H* 10/17/17 04:56 ABG pO2 62.0 mmHg (80.0-100.0) L 10/17/17 04:56 ABG HCO3 34.0 mmol/L (22-26) H* 10/17/17 04:56 ABG O2 Saturation 89.0 % (90-100) L 10/17/17 04:56 ABG Base Excess 5.9 mmol/L (-2.0-2.0) H 10/17/17 04:56 Addy Test Pos 10/17/17 04:56 A-a Gradient 84.0 mmHg 10/17/17 04:56 FiO2 32.000 10/17/17 04:56 Blood Gas Comments [place] abg well-mtf 10/17/17 04:56 Sodium 133 mmol/L (136-145) L 10/17/17 04:30 Corrected Sodium 141 mmol/L (136-145) 10/17/17 04:30 Potassium 4.0 mmol/L (3.5-5.1) 10/17/17 04:30 Chloride 95 mmol/L (98-107) L 10/17/17 04:30 Carbon Dioxide 32.1 mmol/L (21-32) H 10/17/17 04:30 BUN 25 mg/dL (7-18) H 10/17/17 04:30 Creatinine 0.98 mg/dL (0.55-1.02) 10/17/17 04:30 Est GFR (MDRD) Af Amer > 60 (>60) 10/17/17 04:30 Est GFR (MDRD) Non-Af > 60 (>60) 10/17/17 04:30 Glucose 493 mg/dL (65-99) H 10/17/17 12:02 POC Glucose (mg/dL) 472 mg/dL (65-99) H* 10/17/17 11:49 Hemoglobin A1c 10.3 % (4.5-6.2) H 10/15/17 08:38 Calcium 8.8 mg/dL (8.5-10.1) 10/17/17 04:30 Corrected Calcium 9.8 mg/dL (8.5-10.1) 10/17/17 04:30 Magnesium 1.9 mg/dL (1.7-2.9) 10/16/17 16:43 Total Bilirubin 0.50 mg/dL (0.2-1.0) 10/17/17 04:30 AST 20 Units/L (15-37) 10/17/17 04:30 ALT 34 Units/L (12-78) 10/17/17 04:30 Alkaline Phosphatase 156 Units/L (46-116) H 10/17/17 04:30 C-Reactive Protein 24.60 mg/L (0-3.0) H 10/15/17 08:38 B-Natriuretic Peptide < 5.0 pg/mL (0-79) 10/16/17 16:43 Total Protein 7.7 g/dL (6.4-8.2) 10/17/17 04:30 Albumin 2.8 g/dL (3.4-5.0) L 10/17/17 04:30 Globulin 4.9 g/dL (2.5-4.5) H 10/17/17 04:30 Albumin/Globulin Ratio 0.6 Ratio (1.1-2.1) L 10/17/17 04:30 Specimen Type Catherized urine 10/15/17 14:57 Urine Color Yellow (YELLOW) 10/15/17 14:57 Urine Appearance Slightly hazy (CLEAR) 10/15/17 14:57 Urine pH 5.0 (5.0 - 8.0) 10/15/17 14:57 Ur Specific [place] 1.010 (1.000-1.030) 10/15/17 14:57 Urine Protein 2+ (NEGATIVE) 10/15/17 14:57 Urine Glucose (UA) 3+ (NEGATIVE) 10/15/17 14:57 Urine Ketones Negative (NEGATIVE) 10/15/17 14:57 Urine Occult Blood 1+ (NEGATIVE) 10/15/17 14:57 Urine Nitrite Negative (NEGATIVE) 10/15/17 14:57 Urine Bilirubin Negative (NEGATIVE) 10/15/17 14:57 Urine Urobilinogen Normal (NORMAL) 10/15/17 14:57 Ur Leukocyte Esterase 1+ (NEGATIVE) 10/15/17 14:57 Urine RBC 0-2 /HPF (NEGATIVE) 10/15/17 14:57 Urine WBC 0-2 /HPF (NEGATIVE) 10/15/17 14:57 Ur Squamous Epith Cells Negative /HPF (NEGATIVE) 10/15/17 14:57 Urine Bacteria Negative /HPF (NEGATIVE) 10/15/17 14:57 Urine Mucus Few /HPF (NEGATIVE) 10/15/17 14:57 Ur Culture Indicated? No/not indicated 10/15/17 14:57 - Assessment and Plan 1: improving DVT 2: no clincal SBO 3: SAME OTHER dX 4: SAME PLAN PER DR ABDI. WE WILL FOLLOW NEEDED - Problem Patient Problems: Patient Problems
[2017-10-17] MEDS: NORCO 5/325 MG TAB PO PRN (14:10)
[2017-10-17] MEDS ORDERED: NS 1/2 1000 ML IV 1,000 ML IV ONE (14:48)
[2017-10-17] MEDS: NS 1/2 1000 ML IV 1,000 ML IV SCH (14:51)
[2017-10-17] MEDS: COUMADIN TAB 5 MG PO SCH (21:46)
[2017-10-17] MEDS: LEVEMIR SC SCH (21:48)
[2017-10-17] MEDS: SNACK - Diabetic Appropriate PO SCH (21:49)
--- NOTE | 2017-10-17 21:53 | PCM.PROG ---
Progress Note - Progress Note for Day of Date: 10/16/17 - Subjective Subjective: WAS ADMITTED FOR BILATERAL DVT AND POSSIBLE SMALL BOWEL OBSTRUCTION. TODAY, SHE IS LYING IN BED WITH EYES CLOSED ON MORNING ROUNDS. SHE AWAKENS AND RESPONDS TO VERBAL STIMULI. PATIENTS DAUGHTER IS AT BEDSIDE. PATIENT REPORTS THAT SHE CONTINUE WITH PAIN TO LEFT LEG WELL SHORTNESS OF BREATH. ON EXAMINATION, HEART IS REGULAR IN RATE AND RHYTHM. BILATERAL LUNGS ARE NOTED WITH SCATTERED WHEEZING. SHE IS CURRENTLY UTILIZING OXYGEN VIA NASAL CANNULA AT 2L/MIN. ABDOMEN IS ROUND, SOFT, AND NOTED WITH MILD DIFFUSE TENDERNESS ON PALPATION. BILATERAL LOWER EXTREMITIES CONTINUE WITH ERYTHEMA AND EDEMA. SHE CONTINUES WITH WEAKNESS TO LEFT LOWER EXTREMITY. HER VITALS THIS MORNING ARE 99.0-98-23-95%-113/61. LABS WERE OBTAINED THIS MONR[place]. ABNORMAL LAB VALUES INCLUDE THE FOLLOWING PTT 65.3, CHLORIDE 97, CARBON DIOXIDE 32.3, BUN 19, GLUCOSE 268, MAGNESIUM 1.6, ALK PHOS 156, ALBUMIN 3.0. WE OBTAINED A CHEST XRAY THIS MORNING. IT REPORTED BORDERLINE CARDIOMEGALY WITH FINDINGS OF MILD PULMONARY VASCULAR CONGESTION. SHE CONTINUES ON A HEPARIN DRIP FOR ANTICOAGULATION. TODAY, WE WILL START COUMADIN 5MG AT BEDTIME AND TORADOL 15MG IV Q6H PRN PAIN. OTHERWISE, WE WILL CONTINUE WITH CURRENT PLAN OF CARE. WE PLAN TO FOLLOW UP WITH AM LABS AND CONTINUE TO MONITOR PATIENT. - Past Medical Family Social History Past Med/Fam/Surg Hx: No changes since H&P Allergies: Allergies clarithromycin Allergy (Verified 08/27/17 22:11) hydromorphone Adverse Reaction (Verified 08/27/17 22:11) - Review of Systems ROS: No change since H&P - Vital Signs and I&O's Vital Signs: Temperature 97.6 F Pulse Rate [Left Radial] 89 Pulse Rate 89 Respiratory Rate 26 Blood Pressure [Left Arm] 138/73 Blood Pressure [Right Arm] 102/50 Blood Pressure 158/81 O2 Sat by Pulse Oximetry 93 Intake and Output: Intake & Output 10/15/17 10/16/17 10/17/17 10/18/17 11:59 11:59 11:59 11:59 Intake Total 2203 3786 2654 Output Total 2200 2000 4700 Balance 3 1786 -2040 - Physical Exam Oriented: Normal Eyes: Normal Ear: Normal Nose: Normal Throat: Normal Respiratory: Right, Left, Generalized, Wheezes Cardiovascular: Edema (left lower extremity edema ) : Normal (no bleeding ), Hematuria Auscultation: Bowel Sounds: Normal Palpation: Normal Tenderness: Diffuse, Mild. negative: Rebound, Guarding, Rigidity Skin: Red, Tender Musculoskeletal: Right (normal exam), Left (swelling up to the groin with 2 + edema but not as tense . no ulceration , all pulses are palpable ), Leg, Swelling Psychiatric: Normal Mood Description: Calm Affect: Normal Speech Pattern: Clear (much alert , coaperative ) - Laboratory and Diagnostics Result Diagrams: 10/17/17 04:30 10/17/17 18:18 Labs: Laboratory WBC 7.2 X10^3/uL (3.6-10.0) 10/17/17 04:30 RBC 4.19 X10^6/uL (3.5-5.4) 10/17/17 04:30 Hgb 11.9 g/dL (12.0-16.0) L 10/17/17 04:30 Hct 36.7 % (36.0-47.0) 10/17/17 04:30 MCV 87.5 fL (80.0-100.0) 10/17/17 04:30 MCH 28.3 pg (27.0-34.0) 10/17/17 04:30 MCHC 32.4 g/dL (33.0-35.0) L 10/17/17 04:30 RDW 14.2 % (11.6-16.5) 10/17/17 04:30 Plt Count 198 X10^3/uL (150.0-450.0) 10/17/17 04:30 MPV 8.5 fL (7.4-11.0) 10/17/17 04:30 Neut % 84.8 % (42.0-75.0) H 10/17/17 04:30 Lymph % 12.3 % (21.0-51.0) L 10/17/17 04:30 [place] % 2.6 % (0.0-13.0) 10/17/17 04:30 Eos % 0.1 % (0.9-2.9) L 10/17/17 04:30 Baso % 0.2 % (0.2-1.0) 10/17/17 04:30 Neut # 6.1 x10^3/uL (2.2-4.8) H 10/17/17 04:30 Lymph # 0.9 X10^3/uL (1.3-2.9) L 10/17/17 04:30 [place] # 0.2 x10^3/uL (0.3-0.8) L 10/17/17 04:30 Eos # 0.0 x10^3/uL (0.0-0.2) 10/17/17 04:30 Baso # 0.0 X10^3/uL (0.0-0.1) 10/17/17 04:30 Absolute Nucleated RBC 0.0 /100WBC 10/17/17 04:30 INR Target Range - 10/17/17 04:30 INR 0.98 (0.8-1.3) 10/17/17 04:30 PTT 68.4 SECONDS (22.9-36.5) H 10/17/17 16:57 PTT Comment - 10/17/17 16:57 D-Dimer 3340 ng/mL (0-400) H* 10/15/17 08:38 Sample Site Rrad 10/17/17 04:56 ABG pH 7.320 (7.35-7.45) L 10/17/17 04:56 ABG pCO2 66.0 mmHg (35.0-45.0) H* 10/17/17 04:56 ABG pO2 62.0 mmHg (80.0-100.0) L 10/17/17 04:56 ABG HCO3 34.0 mmol/L (22-26) H* 10/17/17 04:56 ABG O2 Saturation 89.0 % (90-100) L 10/17/17 04:56 ABG Base Excess 5.9 mmol/L (-2.0-2.0) H 10/17/17 04:56 Addy Test Pos 10/17/17 04:56 A-a Gradient 84.0 mmHg 10/17/17 04:56 FiO2 32.000 10/17/17 04:56 Blood Gas Comments [place] abg well-mtf 10/17/17 04:56 Sodium 133 mmol/L (136-145) L 10/17/17 04:30 Corrected Sodium 141 mmol/L (136-145) 10/17/17 04:30 Potassium 4.0 mmol/L (3.5-5.1) 10/17/17 04:30 Chloride 95 mmol/L (98-107) L 10/17/17 04:30 Carbon Dioxide 32.1 mmol/L (21-32) H 10/17/17 04:30 BUN 25 mg/dL (7-18) H 10/17/17 04:30 Creatinine 0.98 mg/dL (0.55-1.02) 10/17/17 04:30 Est GFR (MDRD) Af Amer > 60 (>60) 10/17/17 04:30 Est GFR (MDRD) Non-Af > 60 (>60) 10/17/17 04:30 Glucose 513 mg/dL (65-99) H* 10/17/17 18:18 POC Glucose (mg/dL) 514 mg/dL (65-99) H* 10/17/17 20:50 Hemoglobin A1c 10.6 % (4.5-6.2) H 10/17/17 16:33 Calcium 8.8 mg/dL (8.5-10.1) 10/17/17 04:30 Corrected Calcium 9.8 mg/dL (8.5-10.1) 10/17/17 04:30 Magnesium 1.9 mg/dL (1.7-2.9) 10/16/17 16:43 Total Bilirubin 0.50 mg/dL (0.2-1.0) 10/17/17 04:30 AST 20 Units/L (15-37) 10/17/17 04:30 ALT 34 Units/L (12-78) 10/17/17 04:30 Alkaline Phosphatase 156 Units/L (46-116) H 10/17/17 04:30 C-Reactive Protein 24.60 mg/L (0-3.0) H 10/15/17 08:38 B-Natriuretic Peptide < 5.0 pg/mL (0-79) 10/16/17 16:43 Total Protein 7.7 g/dL (6.4-8.2) 10/17/17 04:30 Albumin 2.8 g/dL (3.4-5.0) L 10/17/17 04:30 Globulin 4.9 g/dL (2.5-4.5) H 10/17/17 04:30 Albumin/Globulin Ratio 0.6 Ratio (1.1-2.1) L 10/17/17 04:30 Specimen Type Catherized urine 10/15/17 14:57 Urine Color Yellow (YELLOW) 10/15/17 14:57 Urine Appearance Slightly hazy (CLEAR) 10/15/17 14:57 Urine pH 5.0 (5.0 - 8.0) 10/15/17 14:57 Ur Specific [place] 1.010 (1.000-1.030) 10/15/17 14:57 Urine Protein 2+ (NEGATIVE) 10/15/17 14:57 Urine Glucose (UA) 3+ (NEGATIVE) 10/15/17 14:57 Urine Ketones Negative (NEGATIVE) 10/15/17 14:57 Urine Occult Blood 1+ (NEGATIVE) 10/15/17 14:57 Urine Nitrite Negative (NEGATIVE) 10/15/17 14:57 Urine Bilirubin Negative (NEGATIVE) 10/15/17 14:57 Urine Urobilinogen Normal (NORMAL) 10/15/17 14:57 Ur Leukocyte Esterase 1+ (NEGATIVE) 10/15/17 14:57 Urine RBC 0-2 /HPF (NEGATIVE) 10/15/17 14:57 Urine WBC 0-2 /HPF (NEGATIVE) 10/15/17 14:57 Ur Squamous Epith Cells Negative /HPF (NEGATIVE) 10/15/17 14:57 Urine Bacteria Negative /HPF (NEGATIVE) 10/15/17 14:57 Urine Mucus Few /HPF (NEGATIVE) 10/15/17 14:57 Ur Culture Indicated? No/not indicated 10/15/17 14:57 - Plan (1) DVT, lower extremity Status: Acute Qualifiers: Affected thrombotic vein of extremity: unspecified vein of extremity Chronicity: acute Laterality: bilateral Qualified Code(s): I82.403 - Acute embolism and thrombosis of unspecified deep veins of lower extremity, bilateral Plan: coumadin 5mg at bedtime, heparin drip, ptt per protocol, continue to monitor (2) Small bowel obstruction Status: Acute Plan: continue to monitor
[2017-10-17 23:23] LABS: ABG BASE EXCESS 9.1 mmol/L (-2.0-2.0)
[2017-10-17 23:26] LABS: ABG ALLEN TEST POS; ABG HCO3 35.5 mmol/L (22-26)
[2017-10-18] MEDS: HumuLIN R SUBCUT PRN ×5 (00:34→20:11)
[2017-10-18] MEDS: ZOFRAN TAB 4 MG SL PRN (05:39)
[2017-10-18 06:28] LABS: BASOPHILS # (AUTO) 0.1 X10^3/uL (0.0-0.1); BASOPHILS % (AUTO) 0.7 % (0.2-1.0); HEMOGLOBIN 11.6 g/dL (12.0-16.0); LYMPHOCYTES # (AUTO) 1.4 X10^3/uL (1.3-2.9); LYMPHOCYTES % (AUTO) 11.9 % (21.0-51.0); MEAN CORPUSCULAR HEMOGLOBIN 28.2 pg (27.0-34.0); MEAN CORPUSCULAR HGB CONC 33.2 g/dL (33.0-35.0); MEAN CORPUSCULAR VOLUME 85.2 fL (80.0-100.0); MONOCYTES # (AUTO) 0.8 x10^3/uL (0.3-0.8); MONOCYTES % (AUTO) 6.5 % (0.0-13.0); NEUTROPHILS # (AUTO) 9.6 x10^3/uL (2.2-4.8); NEUTROPHILS % (AUTO) 80.9 % (42.0-75.0); PLATELET COUNT 225 X10^3/uL (150.0-450.0); RED BLOOD COUNT 4.11 X10^6/uL (3.5-5.4); RED CELL DISTRIBUTION WIDTH 14.6 % (11.6-16.5); WHITE BLOOD COUNT 11.9 X10^3/uL (3.6-10.0)
[2017-10-18 06:40] LABS: ALANINE AMINOTRANSFERASE 30 Units/L (12-78); ALBUMIN 2.7 g/dL (3.4-5.0); ALKALINE PHOSPHATASE 153 Units/L (46-116); ASPARTATE AMINO TRANSFERASE 11 Units/L (15-37); BLOOD UREA NITROGEN 30 mg/dL (7-18); CALCIUM 9.2 mg/dL (8.5-10.1); CARBON DIOXIDE 33.4 mmol/L (21-32); CHLORIDE 98 mmol/L (98-107); COR CA(FOR HYPOALB) 10.2 mg/dL (8.5-10.1); COR NA(FOR HYPERGLY) 144 mmol/L (136-145); CREATININE 0.89 mg/dL (0.55-1.02); SODIUM 138 mmol/L (136-145); TOTAL PROTEIN 7.7 g/dL (6.4-8.2); eGFR BLACK RACES > 60 (>60); eGFR NON BLACK RACES > 60 (>60)
[2017-10-18] MEDS: HEPARIN SODIUM IN D5W 25,000 UNITS/500 ML BAG IV PRN ×2 (07:08→16:20)
--- NOTE | 2017-10-18 07:38 | RAD ---
Examination: AP chest History: SOB Comparison 10/16/2017 Findings: Normal transverse heart diameter with essentially clear lungs and pleural spaces. Stable po sition of central line in the SVC. Impression: No acute pulmonary findings. Reported By:
[2017-10-18] MEDS: LASIX IVP SCH ×2 (09:05→20:04)
[2017-10-18] MEDS: NORVASC TAB 10 MG PO SCH (09:05)
[2017-10-18] MEDS: NORCO 5/325 MG TAB PO PRN ×2 (09:06→20:04)
[2017-10-18] MEDS: COZAAR PO SCH (09:06)
[2017-10-18] MEDS: MILK OF MAGNESIA PO SCH ×2 (09:09→14:09)
[2017-10-18] MEDS: COLACE CAP 100 MG PO SCH ×3 (09:09→20:06)
[2017-10-18] MEDS: PAXIL PO SCH ×2 (10:44→20:29)
[2017-10-18] MEDS: SYNTHROID 100 mcg TAB PO SCH (16:21)
[2017-10-18] MEDS: NS 1/2 1000 ML IV 1,000 ML IV SCH (16:55)
[2017-10-18] MEDS ORDERED: NS 1/2 1000 ML IV 1,000 ML IV ONE (16:56)
[2017-10-18] MEDS: COUMADIN TAB 7.5 MG PO SCH (20:06)
[2017-10-18] MEDS: SNACK - Diabetic Appropriate PO SCH (20:09)
[2017-10-18] MEDS: LEVEMIR SC SCH (20:10)
[2017-10-18] MEDS ORDERED: COUMADIN TAB 5 MG PO SCH (21:00)
--- NOTE | 2017-10-18 21:23 | PCM.PROG ---
Progress Note - Progress Note for Day of Date: 10/17/17 - Subjective Subjective: WAS ADMITTED FOR BILATERAL DVT AND POSSIBLE SMALL BOWEL OBSTRUCTION. YESTERDAY AFTERNOON, PATIENT WAS NOTED WITH INCREASED DROWSINESS AND LETHARGY. SHE WAS NOTED WITH SHALLOW, LABORED RESPIRATIONS. CHEST XRAY AND ABG WERE OBTAINED. 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 ABG REPORTED TODAY, SHE IS LYING IN BED WITH EYES CLOSED ON MORNING ROUNDS. SHE AWAKENS AND RESPONDS TO VERBAL STIMULI. PH 7.270, PC02 79, P02 43, HC03 36.3, 02 SATURATION 71, BASE EXCESS 6.8. SHE WAS PLACED ON THE BIPAP. PATIENTS HOME MEDICATIONS OF GABAPENTIN 200MG PO TID AND LYRICA 150MG PO DAILY WERE RESUMED WHEN PATIENT WAS IN THE ER. SHE RECEIVED THESE YESTERDAY. WE DISCONTINUED THESE MEDICATIONS, WE BELIEVE THAT THIS MAY HAVE BEEN CAUSING HER INCREASED DROWSINESS. TODAY, PATIENT IS LYING IN BED WITH EYES CLOSED ON MORNING ROUNDS. DAUGHTER IS AT BEDSIDE. PATIENT OPENS EYES TO VERBAL STIMULI. SHE IS CURRENTLY UTILIZING THE BIPAP. PATIENT REPORTS THAT SHE CONTINUE WITH PAIN TO LEFT LEG WELL SHORTNESS OF BREATH. ON EXAMINATION, HEART IS REGULAR IN RATE AND RHYTHM. BILATERAL LUNGS ARE NOTED WITH SCATTERED WHEEZING. ABDOMEN IS ROUND, SOFT, AND NOTED WITH MILD DIFFUSE TENDERNESS ON PALPATION. BILATERAL LOWER EXTREMITIES CONTINUE WITH ERYTHEMA AND EDEMA. SHE CONTINUES WITH WEAKNESS TO LEFT LOWER EXTREMITY. HER VITALS THIS MORNING ARE 97.6-93-25-93%-147/86. LABS WERE OBTAINED THIS MONRING. ABNORMAL LAB VALUES INCLUDE THE FOLLOWING HGB 11.9, PTT 102.0, SODIUM 133, CHLORIDE 95, CARBON DIOXIDE 32.1, BUN 25, GLUCOSE 425, ALK PHOS 156, ALBUIN 2.8, GLOBULIN 4.9. TODAYS ABG REPORTED PH 7.320, PC02 66.0, P02 62.0, HC03 34, 02 SATURATION 89, BASE EXCESS 5.9. SHE CONTINUES ON A HEPARIN DRIP FOR ANTICOAGULATION. TODAY , WE WILL START LASIX 40MG IV Q12H, SOLU-MEDROL 40MG IV Q8H, AND START A BOWEL REGIMEN. OTHERWISE, WE WILL CONTINUE WITH CURRENT PLAN OF CARE. WE PLAN TO FOLLOW UP WITH AM LABS AND CONTINUE TO MONITOR PATIENT. - Past Medical Family Social History Past Med/Fam/Surg Hx: No changes since H&P Allergies: Allergies clarithromycin Allergy (Verified 08/27/17 22:11) hydromorphone Adverse Reaction (Verified 08/27/17 22:11) - Review of Systems ROS: No change since H&P - Vital Signs and I&O's Vital Signs: Temperature 97.9 F Pulse Rate [Left Radial] 80 Pulse Rate 89 Respiratory Rate 23 Blood Pressure [Left Arm] 109/55 Blood Pressure [Right Arm] 102/50 Blood Pressure 158/81 O2 Sat by Pulse Oximetry 93 Intake and Output: Intake & Output 10/16/17 10/17/17 10/18/17 10/19/17 11:59 11:59 11:59 11:59 Intake Total 2203 3786 6432 1400 Output Total 2200 2000 9100 1600 Balance 3 6582 -3456 -585 - Physical Exam Oriented: Normal Eyes: Normal Ear: Normal Nose: Normal Throat: Normal Respiratory: Right, Left, Generalized, Wheezes Cardiovascular: Edema (left lower extremity edema ) : Normal (no bleeding ), Hematuria Auscultation: Bowel Sounds: Normal Palpation: Normal Tenderness: Diffuse, Mild. negative: Rebound, Guarding, Rigidity Skin: Red, Tender Musculoskeletal: Right (normal exam), Left (swelling up to the groin with 2 + edema but not as tense . no ulceration , all pulses are palpable ), Leg, Swelling Psychiatric: Normal Mood Description: Calm Affect: Normal Speech Pattern: Clear, Appropriate - Laboratory and Diagnostics Result Diagrams: 10/18/17 05:36 10/18/17 05:36 Labs: 10/16/17 21:40 Blood Blood Culture - Preliminary 10/16/17 21:30 Blood Blood Culture - Preliminary Laboratory WBC 11.9 X10^3/uL (3.6-10.0) H 10/18/17 05:36 RBC 4.11 X10^6/uL (3.5-5.4) 10/18/17 05:36 Hgb 11.6 g/dL (12.0-16.0) L 10/18/17 05:36 Hct 35.0 % (36.0-47.0) L 10/18/17 05:36 MCV 85.2 fL (80.0-100.0) 10/18/17 05:36 MCH 28.2 pg (27.0-34.0) 10/18/17 05:36 MCHC 33.2 g/dL (33.0-35.0) 10/18/17 05:36 RDW 14.6 % (11.6-16.5) 10/18/17 05:36 Plt Count 225 X10^3/uL (150.0-450.0) 10/18/17 05:36 MPV 9.0 fL (7.4-11.0) 10/18/17 05:36 Neut % 80.9 % (42.0-75.0) H 10/18/17 05:36 Lymph % 11.9 % (21.0-51.0) L 10/18/17 05:36 [place] % 6.5 % (0.0-13.0) 10/18/17 05:36 Eos % 0.0 % (0.9-2.9) L 10/18/17 05:36 Baso % 0.7 % (0.2-1.0) 10/18/17 05:36 Neut # 9.6 x10^3/uL (2.2-4.8) H 10/18/17 05:36 Lymph # 1.4 X10^3/uL (1.3-2.9) 10/18/17 05:36 [place] # 0.8 x10^3/uL (0.3-0.8) 10/18/17 05:36 Eos # 0.0 x10^3/uL (0.0-0.2) 10/18/17 05:36 Baso # 0.1 X10^3/uL (0.0-0.1) 10/18/17 05:36 Absolute Nucleated RBC 0.0 /100WBC 10/18/17 05:36 INR Target Range - 10/18/17 05:36 INR 1.08 (0.8-1.3) 10/18/17 05:36 PTT 65.5 SECONDS (22.9-36.5) H 10/18/17 15:20 PTT Comment - 10/18/17 15:20 D-Dimer 3340 ng/mL (0-400) H* 10/15/17 08:38 Sample Site Rrad 10/17/17 23:05 ABG pH 7.410 (7.35-7.45) 10/17/17 23:05 ABG pCO2 56.0 mmHg (35.0-45.0) H* 10/17/17 23:05 ABG pO2 85.0 mmHg (80.0-100.0) 10/17/17 23:05 ABG HCO3 35.5 mmol/L (22-26) H* 10/17/17 23:05 ABG O2 Saturation 96.0 % (90-100) 10/17/17 23:05 ABG Base Excess 9.1 mmol/L (-2.0-2.0) H 10/17/17 23:05 Addy Test Pos 10/17/17 23:05 A-a Gradient 45.0 mmHg 10/17/17 23:05 FiO2 28.000 10/17/17 23:05 Blood Gas Comments [place] abg well 10/17/17 23:05 Sodium 138 mmol/L (136-145) 10/18/17 05:36 Corrected Sodium 144 mmol/L (136-145) 10/18/17 05:36 Potassium 3.5 mmol/L (3.5-5.1) 10/18/17 05:36 Chloride 98 mmol/L (98-107) 10/18/17 05:36 Carbon Dioxide 33.4 mmol/L (21-32) H 10/18/17 05:36 BUN 30 mg/dL (7-18) H 10/18/17 05:36 Creatinine 0.89 mg/dL (0.55-1.02) 10/18/17 05:36 Est GFR (MDRD) Af Amer > 60 (>60) 10/18/17 05:36 Est GFR (MDRD) Non-Af > 60 (>60) 10/18/17 05:36 Glucose 339 mg/dL (65-99) H 10/18/17 05:36 POC Glucose (mg/dL) 351 mg/dL (65-99) H 10/18/17 19:41 Hemoglobin A1c 10.6 % (4.5-6.2) H 10/17/17 16:33 Calcium 9.2 mg/dL (8.5-10.1) 10/18/17 05:36 Corrected Calcium 10.2 mg/dL (8.5-10.1) H 10/18/17 05:36 Magnesium 2.0 mg/dL (1.7-2.9) 10/18/17 05:36 Total Bilirubin 0.20 mg/dL (0.2-1.0) 10/18/17 05:36 AST 11 Units/L (15-37) L 10/18/17 05:36 ALT 30 Units/L (12-78) 10/18/17 05:36 Alkaline Phosphatase 153 Units/L (46-116) H 10/18/17 05:36 C-Reactive Protein 24.60 mg/L (0-3.0) H 10/15/17 08:38 B-Natriuretic Peptide < 5.0 pg/mL (0-79) 10/16/17 16:43 Total Protein 7.7 g/dL (6.4-8.2) 10/18/17 05:36 Albumin 2.7 g/dL (3.4-5.0) L 10/18/17 05:36 Globulin 5.0 g/dL (2.5-4.5) H 10/18/17 05:36 Albumin/Globulin Ratio 0.5 Ratio (1.1-2.1) L 10/18/17 05:36 Specimen Type Catherized urine 10/15/17 14:57 Urine Color Yellow (YELLOW) 10/15/17 14:57 Urine Appearance Slightly hazy (CLEAR) 10/15/17 14:57 Urine pH 5.0 (5.0 - 8.0) 10/15/17 14:57 Ur Specific [place] 1.010 (1.000-1.030) 10/15/17 14:57 Urine Protein 2+ (NEGATIVE) 10/15/17 14:57 Urine Glucose (UA) 3+ (NEGATIVE) 10/15/17 14:57 Urine Ketones Negative (NEGATIVE) 10/15/17 14:57 Urine Occult Blood 1+ (NEGATIVE) 10/15/17 14:57 Urine Nitrite Negative (NEGATIVE) 10/15/17 14:57 Urine Bilirubin Negative (NEGATIVE) 10/15/17 14:57 Urine Urobilinogen Normal (NORMAL) 10/15/17 14:57 Ur Leukocyte Esterase 1+ (NEGATIVE) 10/15/17 14:57 Urine RBC 0-2 /HPF (NEGATIVE) 10/15/17 14:57 Urine WBC 0-2 /HPF (NEGATIVE) 10/15/17 14:57 Ur Squamous Epith Cells Negative /HPF (NEGATIVE) 10/15/17 14:57 Urine Bacteria Negative /HPF (NEGATIVE) 10/15/17 14:57 Urine Mucus Few /HPF (NEGATIVE) 10/15/17 14:57 Ur Culture Indicated? No/not indicated 10/15/17 14:57 - Plan (1) DVT, lower extremity Status: Acute Qualifiers: Affected thrombotic vein of extremity: unspecified vein of extremity Chronicity: acute Laterality: bilateral Qualified Code(s): I82.403 - Acute embolism and thrombosis of unspecified deep veins of lower extremity, bilateral Plan: coumadin 5mg at bedtime, heparin drip, ptt per protocol, continue to monitor (2) Small bowel obstruction Status: Acute Plan: continue to monitor (3) Respiratory distress Status: Acute Plan: BIPAP, MONITOR ABG, LASIX 40MG IV Q12H, SOLU-MEDROL 40MG IV Q8H, CONTINUE TO MONITOR LABS AND CHEST XRAY
[2017-10-19] MEDS: HumuLIN R SUBCUT PRN (00:02)
[2017-10-19] MEDS: NORCO 5/325 MG TAB PO PRN ×3 (02:19→23:06)
[2017-10-19 06:12] LABS: BASOPHILS # (AUTO) 0.1 X10^3/uL (0.0-0.1); BASOPHILS % (AUTO) 1.1 % (0.2-1.0); EOSINOPHILS # (AUTO) 0.2 x10^3/uL (0.0-0.2); EOSINOPHILS % (AUTO) 1.5 % (0.9-2.9); HEMATOCRIT 36.3 % (36.0-47.0); HEMOGLOBIN 11.9 g/dL (12.0-16.0); LYMPHOCYTES # (AUTO) 3.4 X10^3/uL (1.3-2.9); LYMPHOCYTES % (AUTO) 31.5 % (21.0-51.0); MEAN CORPUSCULAR HEMOGLOBIN 28.4 pg (27.0-34.0); MEAN CORPUSCULAR HGB CONC 32.8 g/dL (33.0-35.0); MEAN CORPUSCULAR VOLUME 86.4 fL (80.0-100.0); MEAN PLATELET VOLUME 8.7 fL (7.4-11.0); MONOCYTES # (AUTO) 0.9 x10^3/uL (0.3-0.8); MONOCYTES % (AUTO) 8.3 % (0.0-13.0); NEUTROPHILS # (AUTO) 6.3 x10^3/uL (2.2-4.8); NEUTROPHILS % (AUTO) 57.6 % (42.0-75.0); PLATELET COUNT 260 X10^3/uL (150.0-450.0); WHITE BLOOD COUNT 10.9 X10^3/uL (3.6-10.0)
[2017-10-19 06:33] LABS: ALANINE AMINOTRANSFERASE 29 Units/L (12-78); ALBUMIN 2.8 g/dL (3.4-5.0); ALKALINE PHOSPHATASE 137 Units/L (46-116); ASPARTATE AMINO TRANSFERASE 19 Units/L (15-37); BLOOD UREA NITROGEN 32 mg/dL (7-18); CALCIUM 8.7 mg/dL (8.5-10.1); CARBON DIOXIDE 36.4 mmol/L (21-32); CHLORIDE 98 mmol/L (98-107); COR CA(FOR HYPOALB) 9.7 mg/dL (8.5-10.1); COR NA(FOR HYPERGLY) 140 mmol/L (136-145); CREATININE 0.85 mg/dL (0.55-1.02); SODIUM 140 mmol/L (136-145); TOTAL PROTEIN 7.5 g/dL (6.4-8.2); eGFR BLACK RACES > 60 (>60); eGFR NON BLACK RACES > 60 (>60)
[2017-10-19] MEDS: ZOFRAN TAB 4 MG SL PRN ×2 (07:02→23:07)
[2017-10-19] MEDS: NORVASC TAB 10 MG PO SCH (09:19)
[2017-10-19] MEDS: PAXIL PO SCH ×2 (09:19→20:24)
[2017-10-19] MEDS: LASIX IVP SCH ×2 (09:20→20:25)
[2017-10-19] MEDS: COLACE CAP 100 MG PO SCH ×3 (09:20→20:26)
[2017-10-19] MEDS: COZAAR PO SCH (09:20)
[2017-10-19] MEDS: HEPARIN SODIUM IN D5W 25,000 UNITS/500 ML BAG IV PRN ×2 (11:37→20:26)
[2017-10-19] MEDS: NS 1/2 1000 ML IV 1,000 ML IV SCH (12:59)
[2017-10-19] MEDS: SYNTHROID 100 mcg TAB PO SCH (16:50)
[2017-10-19] MEDS ORDERED: PHENERGAN INJ 25 MG IV ONE (19:39)
[2017-10-19] MEDS ORDERED: DEMEROL INJ IVP ONE (19:39)
[2017-10-19] MEDS: COUMADIN TAB 7.5 MG PO SCH (20:41)
[2017-10-19] MEDS: SNACK - Diabetic Appropriate PO SCH (20:42)
[2017-10-19] MEDS: LEVEMIR SC SCH (20:42)
[2017-10-20] MEDS: TORADOL 15 MG VIAL IVP PRN (03:26)
[2017-10-20 03:57] LABS: BASOPHILS % (AUTO) 0.6 % (0.2-1.0); EOSINOPHILS # (AUTO) 0.3 x10^3/uL (0.0-0.2); EOSINOPHILS % (AUTO) 3.3 % (0.9-2.9); HEMATOCRIT 35.4 % (36.0-47.0); HEMOGLOBIN 11.8 g/dL (12.0-16.0); LYMPHOCYTES # (AUTO) 2.8 X10^3/uL (1.3-2.9); LYMPHOCYTES % (AUTO) 33.6 % (21.0-51.0); MEAN CORPUSCULAR HEMOGLOBIN 28.5 pg (27.0-34.0); MEAN CORPUSCULAR HGB CONC 33.4 g/dL (33.0-35.0); MEAN CORPUSCULAR VOLUME 85.4 fL (80.0-100.0); MEAN PLATELET VOLUME 7.9 fL (7.4-11.0); MONOCYTES # (AUTO) 0.7 x10^3/uL (0.3-0.8); NEUTROPHILS # (AUTO) 4.5 x10^3/uL (2.2-4.8); NEUTROPHILS % (AUTO) 53.5 % (42.0-75.0); PLATELET COUNT 257 X10^3/uL (150.0-450.0); RED BLOOD COUNT 4.15 X10^6/uL (3.5-5.4); RED CELL DISTRIBUTION WIDTH 14.3 % (11.6-16.5); WHITE BLOOD COUNT 8.3 X10^3/uL (3.6-10.0)
[2017-10-20 04:06] LABS: ALANINE AMINOTRANSFERASE 37 Units/L (12-78); ALBUMIN 2.6 g/dL (3.4-5.0); ALKALINE PHOSPHATASE 121 Units/L (46-116); ASPARTATE AMINO TRANSFERASE 33 Units/L (15-37); BLOOD UREA NITROGEN 24 mg/dL (7-18); CALCIUM 8.2 mg/dL (8.5-10.1); CARBON DIOXIDE 39.7 mmol/L (21-32); CHLORIDE 96 mmol/L (98-107); COR CA(FOR HYPOALB) 9.3 mg/dL (8.5-10.1); COR NA(FOR HYPERGLY) 140 mmol/L (136-145); CREATININE 0.89 mg/dL (0.55-1.02); SODIUM 139 mmol/L (136-145); TOTAL PROTEIN 7.2 g/dL (6.4-8.2); eGFR BLACK RACES > 60 (>60); eGFR NON BLACK RACES > 60 (>60)
[2017-10-20] MEDS: HEPARIN SODIUM IN D5W 25,000 UNITS/500 ML BAG IV PRN (04:40)
[2017-10-20] MEDS: COLACE CAP 100 MG PO SCH (08:27)
[2017-10-20] MEDS: PAXIL PO SCH (09:30)
[2017-10-20] MEDS: LASIX IVP SCH (09:30)
[2017-10-20] MEDS: COZAAR PO SCH (09:30)
[2017-10-20] MEDS: NORVASC TAB 10 MG PO SCH (09:31)
[2017-10-20 11:13] VITALS: BP 112/55
--- NOTE | 2017-10-20 20:29 | PCM.PROG ---
Progress Note - Progress Note for Day of Date: 10/18/17 - Subjective Subjective: WAS ADMITTED FOR BILATERAL DVT AND POSSIBLE SMALL BOWEL OBSTRUCTION. TODAY, PATIENT IS ALERT AND ORIENTED, LYING IN BED ON MORNING ROUNDS. PATIENTS DAUGHTER IS AT BEDSIDE. PATIENT REPORTS THAT SHE CONTINUES WITH PAIN TO LEFT LEG AND SHORNTESS OF BREATH. SHE REPORTS THAT SHORTNESS OF BREATH HAS IMPROVED SOME SINCE HER EPISODE TWO DAYS AGO. SHE NO LONGER REQUIRES THE USE OF THE BIPAP. ON EXAMINATION, HEART IS REGULAR IN RATE AND RHYTHM. BILATERAL LUNG SOUNDS ARE DIMINISHED. SHE IS CURRENTLY UTILIZING OXYGEN VIA NASAL CANNUA AT 2L/MIN. ABDOMEN IS ROUND, SOFT, AND NON-TENDER WITH NORMAL BOWEL SOUNDS NOTED IN ALL QUADRANTS. BILATERAL LOWER EXTREMITIES CONTINUE WITH EDEMA. SHE CONTINUES WITH WEAKNESS TO LEFT LOWER EXTREMITY, ALTHOUGH IMPROVING. HER VITALS THIS MORNING ARE 98.7-84-18-95%-109/60. LABS WERE OBTAINED THIS MONRING. ABNORMAL LAB VALUES INCLUDE THE FOLLOWING: WBC 11.9, HGB 11.6, HCT 35.0 , INR 1.08, CARBON DIOXIDE 33.4, BUN 30, GLUCOSE 339, AST 11, ALK PHOS 153, ALBUMIN 2.7, GLOBULIN 5.0. TODAYS CHEST XRAY REPORTS NORMAL TRANSVERSE HEART DIAMETER WITH ESSENTIALLY CLEAR LUNGS AND PLEURAL SPACES. PATIENT HAS QUALIFIED FOR A HOME CPAP MACHINE AT HOME. RESPIRATORY THERAPY HAS ORDERED BIPAP AND WILL ARRANGE FOR AN OUTPATIENT SLEEP STUDY AFTER DISCHARGE. SHE CONTINUES ON A HEPARIN DRIP FOR ANTICOAGULATION. COUMADIN REMAINS TO BE NON-THERAPEUTIC ACCORDING TO TODAYS INR. WE WILL INCREASE COUMADIN TO 7.5MG AT BEDTIME. SOLU- MEDROL WAS DISCONTINUED LAST NIGHT DUE TO ELEVATED GLUCOSE LEVELS. OTHERWISE, WE WILL CONTINUE WITH CURRENT PLAN OF CARE. WE PLAN TO FOLLOW UP WITH AM LABS AND CONTINUE TO MONITOR PATIENT. - Past Medical Family Social History Past Med/Fam/Surg Hx: No changes since H&P Allergies: Allergies clarithromycin Allergy (Verified 08/27/17 22:11) hydromorphone Adverse Reaction (Verified 08/27/17 22:11) - Review of Systems ROS: No change since H&P - Vital Signs and I&O's Vital Signs: Temperature 97.6 F Pulse Rate [Left Radial] 80 Pulse Rate 89 Respiratory Rate 21 Blood Pressure [Left Arm] 112/55 Blood Pressure [Right Arm] 102/50 Blood Pressure 158/81 O2 Sat by Pulse Oximetry 96 Intake and Output: Intake & Output 10/18/17 10/19/17 10/20/17 10/21/17 11:59 11:59 11:59 11:59 Intake Total 6483 4295 5211 Output Total 9102 8388 0171 Balance -3991 -963 6121 - Physical Exam Oriented: Normal Eyes: Normal Ear: Normal Nose: Normal Throat: Normal Respiratory: Right, Left, Generalized, Wheezes Cardiovascular: Edema (left lower extremity edema ) : Normal (no bleeding ), Hematuria Auscultation: Bowel Sounds: Normal Palpation: Normal Tenderness: negative: Rebound, Guarding, Rigidity Skin: Red, Tender Musculoskeletal: Right (normal exam), Left (swelling up to the groin with 2 + edema but not as tense . no ulceration , all pulses are palpable ), Leg, Swelling Psychiatric: Normal Mood Description: Calm Affect: Normal Speech Pattern: Clear, Appropriate - Laboratory and Diagnostics Result Diagrams: 10/20/17 03:35 10/20/17 03:35 Labs: 10/16/17 21:40 Blood Blood Culture - Preliminary 10/16/17 21:30 Blood Blood Culture - Preliminary Laboratory WBC 8.3 X10^3/uL (3.6-10.0) 10/20/17 03:35 RBC 4.15 X10^6/uL (3.5-5.4) 10/20/17 03:35 Hgb 11.8 g/dL (12.0-16.0) L 10/20/17 03:35 Hct 35.4 % (36.0-47.0) L 10/20/17 03:35 MCV 85.4 fL (80.0-100.0) 10/20/17 03:35 MCH 28.5 pg (27.0-34.0) 10/20/17 03:35 MCHC 33.4 g/dL (33.0-35.0) 10/20/17 03:35 RDW 14.3 % (11.6-16.5) 10/20/17 03:35 Plt Count 257 X10^3/uL (150.0-450.0) 10/20/17 03:35 MPV 7.9 fL (7.4-11.0) 10/20/17 03:35 Neut % 53.5 % (42.0-75.0) 10/20/17 03:35 Lymph % 33.6 % (21.0-51.0) 10/20/17 03:35 [place] % 9.0 % (0.0-13.0) 10/20/17 03:35 Eos % 3.3 % (0.9-2.9) H 10/20/17 03:35 Baso % 0.6 % (0.2-1.0) 10/20/17 03:35 Neut # 4.5 x10^3/uL (2.2-4.8) 10/20/17 03:35 Lymph # 2.8 X10^3/uL (1.3-2.9) 10/20/17 03:35 [place] # 0.7 x10^3/uL (0.3-0.8) 10/20/17 03:35 Eos # 0.3 x10^3/uL (0.0-0.2) H 10/20/17 03:35 Baso # 0.0 X10^3/uL (0.0-0.1) 10/20/17 03:35 Absolute Nucleated RBC 0.0 /100WBC 10/20/17 03:35 INR Target Range - 10/20/17 03:35 INR 1.10 (0.8-1.3) 10/20/17 03:35 PTT 191.7 SECONDS (22.9-36.5) H* 10/20/17 05:05 PTT Comment - 10/20/17 05:05 D-Dimer 3340 ng/mL (0-400) H* 10/15/17 08:38 Sample Site Rrad 10/17/17 23:05 ABG pH 7.410 (7.35-7.45) 10/17/17 23:05 ABG pCO2 56.0 mmHg (35.0-45.0) H* 10/17/17 23:05 ABG pO2 85.0 mmHg (80.0-100.0) 10/17/17 23:05 ABG HCO3 35.5 mmol/L (22-26) H* 10/17/17 23:05 ABG O2 Saturation 96.0 % (90-100) 10/17/17 23:05 ABG Base Excess 9.1 mmol/L (-2.0-2.0) H 10/17/17 23:05 Addy Test Pos 10/17/17 23:05 A-a Gradient 45.0 mmHg 10/17/17 23:05 FiO2 28.000 10/17/17 23:05 Blood Gas Comments [place] abg well 10/17/17 23:05 Sodium 139 mmol/L (136-145) 10/20/17 03:35 Corrected Sodium 140 mmol/L (136-145) 10/20/17 03:35 Potassium 3.4 mmol/L (3.5-5.1) L 10/20/17 03:35 Chloride 96 mmol/L (98-107) L 10/20/17 03:35 Carbon Dioxide 39.7 mmol/L (21-32) H 10/20/17 03:35 BUN 24 mg/dL (7-18) H 10/20/17 03:35 Creatinine 0.89 mg/dL (0.55-1.02) 10/20/17 03:35 Est GFR (MDRD) Af Amer > 60 (>60) 10/20/17 03:35 Est GFR (MDRD) Non-Af > 60 (>60) 10/20/17 03:35 Glucose 159 mg/dL (65-99) H 10/20/17 03:35 POC Glucose (mg/dL) 239 mg/dL (65-99) H 10/20/17 09:04 Hemoglobin A1c 10.6 % (4.5-6.2) H 10/17/17 16:33 Calcium 8.2 mg/dL (8.5-10.1) L 10/20/17 03:35 Corrected Calcium 9.3 mg/dL (8.5-10.1) 10/20/17 03:35 Magnesium 2.0 mg/dL (1.7-2.9) 10/18/17 05:36 Total Bilirubin 0.20 mg/dL (0.2-1.0) 10/20/17 03:35 AST 33 Units/L (15-37) 10/20/17 03:35 ALT 37 Units/L (12-78) 10/20/17 03:35 Alkaline Phosphatase 121 Units/L (46-116) H 10/20/17 03:35 C-Reactive Protein 24.60 mg/L (0-3.0) H 10/15/17 08:38 B-Natriuretic Peptide < 5.0 pg/mL (0-79) 10/16/17 16:43 Total Protein 7.2 g/dL (6.4-8.2) 10/20/17 03:35 Albumin 2.6 g/dL (3.4-5.0) L 10/20/17 03:35 Globulin 4.6 g/dL (2.5-4.5) H 10/20/17 03:35 Albumin/Globulin Ratio 0.6 Ratio (1.1-2.1) L 10/20/17 03:35 Specimen Type Catherized urine 10/15/17 14:57 Urine Color Yellow (YELLOW) 10/15/17 14:57 Urine Appearance Slightly hazy (CLEAR) 10/15/17 14:57 Urine pH 5.0 (5.0 - 8.0) 10/15/17 14:57 Ur Specific [place] 1.010 (1.000-1.030) 10/15/17 14:57 Urine Protein 2+ (NEGATIVE) 10/15/17 14:57 Urine Glucose (UA) 3+ (NEGATIVE) 10/15/17 14:57 Urine Ketones Negative (NEGATIVE) 10/15/17 14:57 Urine Occult Blood 1+ (NEGATIVE) 10/15/17 14:57 Urine Nitrite Negative (NEGATIVE) 10/15/17 14:57 Urine Bilirubin Negative (NEGATIVE) 10/15/17 14:57 Urine Urobilinogen Normal (NORMAL) 10/15/17 14:57 Ur Leukocyte Esterase 1+ (NEGATIVE) 10/15/17 14:57 Urine RBC 0-2 /HPF (NEGATIVE) 10/15/17 14:57 Urine WBC 0-2 /HPF (NEGATIVE) 10/15/17 14:57 Ur Squamous Epith Cells Negative /HPF (NEGATIVE) 10/15/17 14:57 Urine Bacteria Negative /HPF (NEGATIVE) 10/15/17 14:57 Urine Mucus Few /HPF (NEGATIVE) 10/15/17 14:57 Ur Culture Indicated? No/not indicated 10/15/17 14:57 - Plan (1) DVT, lower extremity Status: Acute Qualifiers: Affected thrombotic vein of extremity: unspecified vein of extremity Chronicity: acute Laterality: bilateral Qualified Code(s): I82.403 - Acute embolism and thrombosis of unspecified deep veins of lower extremity, bilateral Plan: coumadin 7.5mg at bedtime, heparin drip, ptt per protocol, continue to monitor (2) Small bowel obstruction Status: Acute Plan: continue to monitor (3) Respiratory distress Status: Acute Plan: BIPAP, MONITOR ABG, LASIX 40MG IV Q12H, CONTINUE TO MONITOR LABS AND CHEST XRAY
== END 2017-10-20 12:15 | disposition home or self-care (01) | DRG 948 ==
LOC: ER 08:37 → UNDOADMIN 13:32 → ICU 13:32
PROVIDERS: ADMIT Internal Medicine; ATTEND Internal Medicine
PROC: 02HV33Z Insertion of Infusion Device into Superior Vena Cava, Percutaneous Approach (ICD-10-PCS; principal; 2017-10-15)
PROC: 3E0234Z Introduction of Serum, Toxoid and Vaccine into Muscle, Percutaneous Approach (ICD-10-PCS; 2017-10-15)
DX: R60.1 Generalized edema (principal); I82.413 Acute embolism and thrombosis of femoral vein, bilateral; I82.412 Acute embolism and thrombosis of left femoral vein; J44.9 Chronic obstructive pulmonary disease, unspecified; E11.65 Type 2 diabetes mellitus with hyperglycemia; E78.2 Mixed hyperlipidemia; I10 Essential (primary) hypertension; E03.8 Other specified hypothyroidism; I87.2 Venous insufficiency (chronic) (peripheral); I25.10 Atherosclerotic heart disease of native coronary artery without angina pectoris; K56.699 Other intestinal obstruction unspecified as to partial versus complete obstruction; R06.02 Shortness of breath; F41.8 Other specified anxiety disorders; R06.03 Acute respiratory distress; R79.1 Abnormal coagulation profile; R13.11 Dysphagia, oral phase; Z23 Encounter for immunization
CPT/HCPCS: 36415; 36556; 36600; 51702; 71045; 71275; 74177; 80053; 81001; 82803; 82947; 83036; 83735; 83880; 85025; 85378; 85610; 85730; 86140; 87040; 90686; 93970; 94660; 96365; 96374; 96375; 99283; 99285; A4222; A4618; A7030; Q0169; S0181; 1956; J1644; J1815; J1940; J2175; J2550; J2920; J3480

== ENCOUNTER 2017-11-09 11:09 | Emergency (ER) | payer SELFPAY ==
[2017-11-09 11:18] VITALS: BP 135/61; BMI 48.4
[2017-11-09] MEDS ORDERED: ROCEPHIN 1 GM IV PREMIX 1 GM/50 ML IV.SOLN. IV ONE ×2 (12:38→13:02)
--- NOTE | 2017-11-09 12:38 | DR.GENAD ---
HPI - PCP Primary Care Physician: ELYSIA COLUNGA - Complaint/Symptoms Chief Complaint Doctors Comments: Patient is complaining of swelling in her left leg with the lower leg getting red recently. States she is taking Eliquis twice daily for a blood clot inher left leg that eas found around Oct 17.States she was in the hospital here and they put her on Eliquis and she was admitted to [place] because she was getting work and they gave her a coupon for Eliquis for three months. she denies fever, chills, cold or cough. states she has been moving around home and has been walking to the mailbox and the swelling had gone down since leaving the hospital but it came back recently. she denies any recent trauma. Chief Complaint:: PT C/O PAIN IN LEFT LEG. LEFT LEG NOTED WITH REDNESS. PT STATES SHE WAS RECENTLY ADMITTED FOR A BLOOD CLOT IN THE SAME LEG. - Nurses notes reviewed Nurses Notes Review: Yes - Source History Provided: Patient - Mode of Arrival Mode of Arrival: Ambulatory - Timing Onset of Chief Complaint: 11/09/17 Came on: Gradually - Duration Duration: Constant How lon Duration: Minutes, Days - Severity Severity: None, Mild - Modifying Factors Worsens:: walking, standing Improves:: nothing PMH - PMH Past Medical History: Yes Past Medical History: CHF, COPD, Diabetes, Dyslipidemia, Hypertension, Hypothyroidism Past Surgical History: Yes Surgical History: Abdominal Surgery, Hysterectomy, Other - Family History History of Family Medical Conditions: Yes Family Medical History: Diabetes Mellitus, [place], Coronary Artery Disease, Hypertension - Social History Alcohol Use: None Do you use any recreational Drugs:: No Lives With: Alone Lives Where: Home - infectious screening In the last 2 months have you had wt loss of >10#?: NO Have you had fever, night sweats or hemotysis?: No Have you traveled outside the country in the last 6 months?: No Isolation: Standard ROS - Review of Systems Constitutional: No Symptoms Reported Eyes: No Symptoms Reported ENTM: No Symptoms Reported Respiratoy: No Symptoms Reported Cardiovascular: No Symptoms Reported, Edema Gastrointestinal/Abdominal: No Symptoms Reported, Constipation, Vomiting Genitourinary: No Symptoms Reported Neurological: No Symptoms Reported, See HPI, Problems Walking (left leg pain and swelling) Musculoskeletal: Left, Leg Integumentary: Change in Color, Lesions Hematologic/Lymphatic: No Symptoms Reported, Blood Clots, Easy Bleeding Endocrine: No Symptoms Reported Psychiatric: No Symptoms Reported PE - Vital Signs Vitals: Temperature 98.0 F Pulse Rate 92 Respiratory Rate 20 Blood Pressure [Left Arm] 112/55 Blood Pressure [Right Arm] 102/50 Blood Pressure 135/61 O2 Sat by Pulse Oximetry 94 - General Limitations: No Limitations General Appearance: Alert, In Distress (mod), Obese - Head Head Exam: Normal Inspection, Atraumatic, Normocephalic - Eyes Eye exam: Normal Appearance, PERRL, EOMI. negative: Scleral Icterus, Conjunctival Injection, Nystagmus, Miosis, Mydrasis, Periorbital Swelling, Periorbital Tenderness, Other - ENT ENT Exam: Normal Exam, Normal Oropharynx, Normal External Ear Exam, Mucous Membranes Moist, TM's Normal Bilaterally TM/Canal Exam: Bilateral Normal Nose Exam: Normal Nose Exam Mouth Exam: Normal Inspection. negative: Drooling, Trismus, Lip Swelling, Tongue Elevation, Tongue Swelling, Laceration, Other Throat Exam: Normal Inspection. negative: Tonsillar Erythema, Tonsillomegaly, Tonsillar Exudate, R Peritonsillar Mass, L Peritonsillar Mass, Muffled Voice, Other - Neck Neck Exam: Normal Inspection, Full ROM, Trachea Midline. negative: Tenderness, Meningismus, Lymphadenopathy, Thyromegaly, Other - Chest Chest Inspection: Normal Inspection, Symmetric Chest Wall Rise - Respiratory Respiratory Exam: Normal Lung Sounds Bilat Respiratory Exam: Bilateral Clear to Auscultation - Cardiovascular Cardiovascular Exam: Regular Rate, Normal Rhythm, Normal Heart Sounds - Abdominal Exam Abdominal Exam: Normal Inspection, Normal Bowel Sounds, Soft Abdominal Tenderness: negative: RUQ, RLQ, LUQ, LLQ, Epigastrium, Suprapubic, Diffuse, Mild, Moderate, Severe, Other - Extremities Extremities Exam: Normal Inspection, Full ROM. negative: Tenderness, Normal Capillary Refill, Edema, Joint Swelling, Calf Tenderness, Other - Back Back Exam: Normal Inspection, Full ROM, Tenderness - Neurologic Neurological Exam: Alert, Oriented X3, CN II-XII Intact, Normal Gait, Reflexes Normal - Psychiatric Psychiatric Exam: Normal Affect, Normal Mood - Skin Skin Exam: Warm, Intact, Rash (left lower leg with red macular rash; large rasr dorsal leg with warm), Erythema ROR - Labs Reviewed Laboratory Results Reviewed?: Yes (all labs and x-ray results reviewed and discussed with patient) Result Diagrams: 11/09/17 12:40 11/09/17 12:40 Laboratory: WBC 4.1 X10^3/uL (3.6-10.0) 11/09/17 12:40 RBC 4.14 X10^6/uL (3.5-5.4) 11/09/17 12:40 Hgb 11.8 g/dL (12.0-16.0) L 11/09/17 12:40 Hct 35.1 % (36.0-47.0) L 11/09/17 12:40 MCV 84.7 fL (80.0-100.0) 11/09/17 12:40 MCH 28.5 pg (27.0-34.0) 11/09/17 12:40 MCHC 33.6 g/dL (33.0-35.0) 11/09/17 12:40 RDW 14.7 % (11.6-16.5) 11/09/17 12:40 Plt Count 267 X10^3/uL (150.0-450.0) 11/09/17 12:40 MPV 7.6 fL (7.4-11.0) 11/09/17 12:40 Neut % 55.2 % (42.0-75.0) 11/09/17 12:40 Lymph % 30.4 % (21.0-51.0) 11/09/17 12:40 [place] % 7.4 % (0.0-13.0) 11/09/17 12:40 Eos % 6.4 % (0.9-2.9) H 11/09/17 12:40 Baso % 0.6 % (0.2-1.0) 11/09/17 12:40 Neut # 2.3 x10^3/uL (2.2-4.8) 11/09/17 12:40 Lymph # 1.3 X10^3/uL (1.3-2.9) 11/09/17 12:40 [place] # 0.3 x10^3/uL (0.3-0.8) 11/09/17 12:40 Eos # 0.3 x10^3/uL (0.0-0.2) H 11/09/17 12:40 Baso # 0.0 X10^3/uL (0.0-0.1) 11/09/17 12:40 Absolute Nucleated RBC 0.0 /100WBC 11/09/17 12:40 INR Target Range - 11/09/17 12:40 INR 1.13 (0.8-1.3) 11/09/17 12:40 PTT 28.3 SECONDS (22.9-36.5) 11/09/17 12:40 PTT Comment - 11/09/17 12:40 Sodium 138 mmol/L (136-145) 11/09/17 12:40 Corrected Sodium 143 mmol/L (136-145) 11/09/17 12:40 Potassium 3.6 mmol/L (3.5-5.1) 11/09/17 12:40 Chloride 99 mmol/L (98-107) 11/09/17 12:40 Carbon Dioxide 31.3 mmol/L (21-32) 11/09/17 12:40 BUN 9 mg/dL (7-18) 11/09/17 12:40 Creatinine 0.73 mg/dL (0.55-1.02) 11/09/17 12:40 Est GFR (MDRD) Af Amer > 60 (>60) 11/09/17 12:40 Est GFR (MDRD) Non-Af > 60 (>60) 11/09/17 12:40 Glucose 307 mg/dL (65-99) H 11/09/17 12:40 Lactic Acid 2.3 mmol/L (0.4-2.0) H 11/09/17 12:40 Calcium 8.9 mg/dL (8.5-10.1) 11/09/17 12:40 Corrected Calcium 9.5 mg/dL (8.5-10.1) 11/09/17 12:40 Total Bilirubin 0.20 mg/dL (0.2-1.0) 11/09/17 12:40 AST 20 Units/L (15-37) 11/09/17 12:40 ALT 44 Units/L (12-78) 11/09/17 12:40 Alkaline Phosphatase 198 Units/L (46-116) H 11/09/17 12:40 Total Protein 7.9 g/dL (6.4-8.2) 11/09/17 12:40 Albumin 3.3 g/dL (3.4-5.0) L 11/09/17 12:40 Globulin 4.6 g/dL (2.5-4.5) H 11/09/17 12:40 Albumin/Globulin Ratio 0.7 Ratio (1.1-2.1) L 11/09/17 12:40 - Diagnosis Discharge Problem: Cellulitis of left lower extremity, Hyperglycemia Left leg DVT Qualifiers: Chronicity: unspecified - Discharge Plan Disposition: 01 HOME, SELF-CARE Condition: Stable Prescriptions: Cephalexin [KEFLEX CAP 500 MG *] 500 mg PO TID #30 cap - Follow ups/Referrals Follow ups/Referrals: ELYSIA COLUNGA [Primary Care Provider] - 3 days - Instructions Instructions: Cellulitis, Adult, [id number], Deep Vein Thrombosis
[2017-11-09] MEDS ORDERED: NS 100 ML IV 100 ML IV ONE (13:00)
--- NOTE | 2017-11-09 13:06 | RAD ---
Examination: Chest, PA and lateral views History: Blood clot in leg Comparison 10/18/2017 Continued normal heart size with clear lungs and pleural spaces. Impression: No change; no acute abnormality. Reported By:
[2017-11-09 13:11] LABS: BASOPHILS % (AUTO) 0.6 % (0.2-1.0); EOSINOPHILS # (AUTO) 0.3 x10^3/uL (0.0-0.2); EOSINOPHILS % (AUTO) 6.4 % (0.9-2.9); HEMATOCRIT 35.1 % (36.0-47.0); HEMOGLOBIN 11.8 g/dL (12.0-16.0); LYMPHOCYTES # (AUTO) 1.3 X10^3/uL (1.3-2.9); LYMPHOCYTES % (AUTO) 30.4 % (21.0-51.0); MEAN CORPUSCULAR HEMOGLOBIN 28.5 pg (27.0-34.0); MEAN CORPUSCULAR HGB CONC 33.6 g/dL (33.0-35.0); MEAN CORPUSCULAR VOLUME 84.7 fL (80.0-100.0); MEAN PLATELET VOLUME 7.6 fL (7.4-11.0); MONOCYTES # (AUTO) 0.3 x10^3/uL (0.3-0.8); MONOCYTES % (AUTO) 7.4 % (0.0-13.0); NEUTROPHILS # (AUTO) 2.3 x10^3/uL (2.2-4.8); NEUTROPHILS % (AUTO) 55.2 % (42.0-75.0); PLATELET COUNT 267 X10^3/uL (150.0-450.0); RED BLOOD COUNT 4.14 X10^6/uL (3.5-5.4); RED CELL DISTRIBUTION WIDTH 14.7 % (11.6-16.5); WHITE BLOOD COUNT 4.1 X10^3/uL (3.6-10.0)
[2017-11-09 13:22] LABS: ALANINE AMINOTRANSFERASE 44 Units/L (12-78); ALBUMIN 3.3 g/dL (3.4-5.0); ALKALINE PHOSPHATASE 198 Units/L (46-116); ASPARTATE AMINO TRANSFERASE 20 Units/L (15-37); BLOOD UREA NITROGEN 9 mg/dL (7-18); CALCIUM 8.9 mg/dL (8.5-10.1); CARBON DIOXIDE 31.3 mmol/L (21-32); CHLORIDE 99 mmol/L (98-107); COR CA(FOR HYPOALB) 9.5 mg/dL (8.5-10.1); COR NA(FOR HYPERGLY) 143 mmol/L (136-145); CREATININE 0.73 mg/dL (0.55-1.02); SODIUM 138 mmol/L (136-145); TOTAL PROTEIN 7.9 g/dL (6.4-8.2); eGFR BLACK RACES > 60 (>60); eGFR NON BLACK RACES > 60 (>60)
[2017-11-09 13:48] LABS: LACTIC ACID 2.3 mmol/L (0.4-2.0)
== END 2017-11-09 14:10 | disposition home or self-care (01) ==
LOC: ER 11:21
DX: L03.116 Cellulitis of left lower limb (principal); I82.402 Acute embolism and thrombosis of unspecified deep veins of left lower extremity; R73.9 Hyperglycemia, unspecified
CPT/HCPCS: 36415; 71046; 80053; 83605; 85025; 85610; 85730; 87040; 96365; 96374; 99282; 99283; A4222; J0696

== ENCOUNTER 2017-11-11 03:02 | Observation (INO) | payer SELFPAY ==
[2017-11-11 03:27] VITALS: BMI 48.4
--- NOTE | 2017-11-11 03:47 | DR.GENAD ---
HPI - PCP Primary Care Physician: MIGUE - HPI Comment HPI Comment: HISTORY BELOW. - Complaint/Symptoms Chief Complaint Doctors Comments: PAIN, SWELLING AND REDNESS LLE. TIMES SEVERAL DAYS. CURRENTLY, HAVE WORSENING CELLULITIS ON THE LLE. NO FEVER, NO DRAINAGE. Chief Complaint:: PATIENT STATES, " THE DOCTOR TOLD ME I HAD CELLULITIS IN MY LEFT LEG SATURDAY AND IT'S STARTING TO HURT MORE. THEY GAVE ME SOME ROCEPHIN. IT FEELS LIKE PINS AND NEEDLES STICKING IN IT ALL OVER AND TIGHT FROM SWELLING.THE REDNESS IS SPREADING. Self Treatment fo Chief Complaint: CEPHALEXIN 500MG TID - Nurses notes reviewed Nurses Notes Review: Yes - Source History Provided: Patient - Mode of Arrival Mode of Arrival: Ambulatory - Timing Onset of Chief Complaint: 11/09/17 Came on: Gradually - Duration Duration: Constant Duration: Days - Severity Severity: Moderate PMH - PMH Past Medical History: Yes Past Medical History: CHF, COPD, Diabetes, Dyslipidemia, Hypertension, Hypothyroidism Past Surgical History: Yes Surgical History: Abdominal Surgery, Hysterectomy, Other - Family History History of Family Medical Conditions: Yes Family Medical History: Diabetes Mellitus, [place], Coronary Artery Disease, Hypertension - Social History Does patient currently use any type of tobacco product: No Have you used tobacco products in the last 12 months: No Type of Tobacco Use: None Does any household member use tobacco: No Alcohol Use: None Do you use any recreational Drugs:: No Lives With: Alone Lives Where: Home - infectious screening In the last 2 months have you had wt loss of >10#?: NO Have you had fever, night sweats or hemotysis?: No Have you traveled outside the country in the last 6 months?: No Isolation: Standard ROS - Review of Systems Constitutional: No Symptoms Reported, Fever, Weakness, Fatigue. negative: Chills Eyes: No Symptoms Reported. negative: Eye Pain, Discharge ENTM: Nose Congestion, Throat Pain. negative: Ear Pain, Nose Discharge Respiratoy: Productive Cough, Short of Breath, Wheezing. negative: Hemoptysis Cardiovascular: Chest Pain Gastrointestinal/Abdominal: No Symptoms Reported. negative: Diarrhea, Nausea, Vomiting Genitourinary: No Symptoms Reported. negative: Dysuria, Frequency, Hematuria Neurological: Headache, Weakness, Dizziness Musculoskeletal: Joint Pain, Joint Swelling, Muscle Pain Integumentary: Rash (LLE WITH REDNESS EXTENDING.) Hematologic/Lymphatic: Blood Clots Endocrine: Increased Thirst. negative: Flushing Psychiatric: Anxiety, Depression. negative: Hallucinations, Suicidal All Other Systems: Reviewed and Negative PE - Vital Signs Vitals: Temperature 98.5 F Pulse Rate 95 Respiratory Rate 16 Blood Pressure [Left Arm] 112/55 Blood Pressure [Right Arm] 102/50 Blood Pressure 130/61 O2 Sat by Pulse Oximetry 92 - General Limitations: No Limitations General Appearance: Alert - Head Head Exam: Normal Inspection - Eyes Eye exam: Normal Appearance - ENT ENT Exam: Normal External Ear Exam External Ear Exam: Normal External Inspection TM/Canal Exam: Bilateral Normal Nose Exam: Normal Nose Exam Mouth Exam: Normal Inspection Throat Exam: Normal Inspection - Neck Neck Exam: Trachea Midline - Chest Chest Inspection: Symmetric Chest Wall Rise - Respiratory Respiratory Exam: Normal Lung Sounds Bilat Respiratory Exam: Bilateral Wheezing, Bilateral Rhonchi, Upper Wheezing, Upper Rhonchi, Lower Wheezing, Lower Rhonchi - Cardiovascular Cardiovascular Exam: Regular Rate, Normal Rhythm, Normal Heart Sounds - Abdominal Exam Abdominal Exam: Normal Bowel Sounds, Soft. negative: Tenderness - Extremities Extremities Exam: Tenderness (LLE SWOLLEN TENDER AND RED.. CELLULITIS PRESENT.) - Back Back Exam: Paraspinal Tenderness - Neurologic Neurological Exam: Alert, Oriented X3 - Psychiatric Psychiatric Exam: Anxious - Skin Skin Exam: Erythema MDM - Differential Diagnosis Differential Diagnosis: DVT, PE, CELLULITIS Course - Treatment Treatment: SEE ORDERS. - Education/Counseling Education/Counseling: Patient, Education Educated On: Diagnosis, Needs for Follow Up ROR - Labs Reviewed Laboratory Results Reviewed?: Yes Result Diagrams: 11/11/17 04:06 11/11/17 10:45 - XRAY XRAY Interpreted by: Radiologist XRAY Findings: REPORT DISCUSS WITH PATIENT. - EKG Rhythm: NSR (EKG NOTED) - Diagnosis Discharge Problem: Cellulitis Qualifiers: Site of cellulitis: extremity Site of cellulitis of extremity: lower extremity Laterality: right Qualified Code(s): L03.115 - Cellulitis of right lower limb DVT (deep venous thrombosis) Qualifiers: DVT location: lower extremity Affected thrombotic vein of extremity: unspecified vein of extremity Chronicity: acute Laterality: left Qualified Code( s): I82.402 - Acute embolism and thrombosis of unspecified deep veins of left lower extremity - Discharge Plan Disposition: 09 ADMITTED INPATIENT Condition: Stable - Follow ups/Referrals - Instructions
[2017-11-11 04:24] LABS: BASOPHILS # (AUTO) 0.1 X10^3/uL (0.0-0.1); BASOPHILS % (AUTO) 3.4 % (0.2-1.0); EOSINOPHILS # (AUTO) 0.2 x10^3/uL (0.0-0.2); EOSINOPHILS % (AUTO) 5.6 % (0.9-2.9); HEMOGLOBIN 10.9 g/dL (12.0-16.0); LYMPHOCYTES # (AUTO) 1.3 X10^3/uL (1.3-2.9); LYMPHOCYTES % (AUTO) 29.5 % (21.0-51.0); MEAN CORPUSCULAR HEMOGLOBIN 28.5 pg (27.0-34.0); MEAN CORPUSCULAR VOLUME 86.1 fL (80.0-100.0); MEAN PLATELET VOLUME 7.7 fL (7.4-11.0); MONOCYTES # (AUTO) 0.3 x10^3/uL (0.3-0.8); MONOCYTES % (AUTO) 7.7 % (0.0-13.0); NEUTROPHILS # (AUTO) 2.3 x10^3/uL (2.2-4.8); NEUTROPHILS % (AUTO) 53.8 % (42.0-75.0); PLATELET COUNT 256 X10^3/uL (150.0-450.0); RED BLOOD COUNT 3.83 X10^6/uL (3.5-5.4); RED CELL DISTRIBUTION WIDTH 14.7 % (11.6-16.5); WHITE BLOOD COUNT 4.3 X10^3/uL (3.6-10.0)
[2017-11-11 04:43] LABS: BLOOD UREA NITROGEN 10 mg/dL (7-18); CALCIUM 8.3 mg/dL (8.5-10.1); CARBON DIOXIDE 31.4 mmol/L (21-32); CHLORIDE 100 mmol/L (98-107); COR NA(FOR HYPERGLY) 145 mmol/L (136-145); CREATININE 0.79 mg/dL (0.55-1.02); SODIUM 139 mmol/L (136-145); TROPONIN I < 0.02 ng/mL (0-1.5); eGFR BLACK RACES > 60 (>60); eGFR NON BLACK RACES > 60 (>60)
[2017-11-11 04:47] LABS: ALANINE AMINOTRANSFERASE 33 Units/L (12-78); ALBUMIN 2.9 g/dL (3.4-5.0); ALKALINE PHOSPHATASE 205 Units/L (46-116); ASPARTATE AMINO TRANSFERASE 13 Units/L (15-37); CKMB % 3.3 % (<4); COR CA(FOR HYPOALB) 9.2 mg/dL (8.5-10.1); CREATINE KINASE 30 Units/L (26-192); CREATINE KINASE MB < 1.0 ng/mL (0-4.0); TOTAL PROTEIN 7.1 g/dL (6.4-8.2)
--- NOTE | 2017-11-11 07:56 | CT ---
HISTORY: Shortness of breath, elevated D-dimer, blood clots in left leg. Study: CTA chest Comparison: 10/15/2017 Technique: Multiple axial images of the chest were obtained from the thoracic inlet to the upper abdo men during the administration of IV contrast. Findings: The mediastinum does not demonstrate significant pathological lymphadenopathy. There is no pericardi al effusion observed. The thoracic aorta is normal in its contour without evidence for aneurysmal di latation. The central pulmonary arterial system does not demonstrate central filling defects to sugg est pulmonary emboli. Evaluation of the lung parenchyma reveals interstitial lung disease without consolidation.. There is a 4 mm noncalcified nodule present involving the lateral aspect of the right middle lobe. This is se en retrospectively on the prior study and is unchanged. No new nodules are seen. Due to the small siz e of the nodule, no follow-up will be needed. The bony thorax is unremarkable in its appearance. Th ere is again evidence of a fatty liver.. IMPRESSION: No evidence of thoracic aortic aneurysm or pulmonary embolus. Interstitial lung disease. 4 mm noncalcified nodule present in the lateral segment of the right middle lobe. This is seen retros pectively on the prior study and is unchanged. No new nodules are seen. Due to the small size of the nodule, no follow-up will be needed. Reported By:
--- NOTE | 2017-11-11 07:59 | VAS ---
HISTORY: Left leg pain and swelling. Study: Deep vein Doppler ultrasound of the left lower extremity Comparison: 10/15/2017 Technique: Grayscale, color and duplex Doppler evaluation of the deep veins of the left lower extremi ty is provided. Findings: Due to patient size, limited visibility of the left superficial femoral vein is noted. There is absen t compression, color and duplex Doppler flow involving the left common femoral vein and the left popl iteal vein, compatible with extensive deep vein thrombosis. IMPRESSION: Continued evidence of extensive deep vein thrombosis involving the left lower extremity. Reported By:
[2017-11-11] MEDS ORDERED: ATARAX TAB 25 MG PO PRN (08:13)
[2017-11-11] MEDS ORDERED: PHENERGAN TAB 25 MG PO PRN (08:13)
[2017-11-11] MEDS ORDERED: K-LYTE EFFERVESCENT ONE (08:30)
[2017-11-11] MEDS ORDERED: K-LYTE EFFERVESCENT PO ONE (08:39)
[2017-11-11] MEDS ORDERED: PATIENT'S HOME MEDICATION (Losartan Potassium [Losartan Potassium] 1 TAB) PO SCH (09:00)
[2017-11-11] MEDS ORDERED: PHARMACY CONSULT - VANCOMYCIN XX SCH (09:00)
[2017-11-11] MEDS ORDERED: NS 250 ML IV 250 ML IV ONE (10:43)
[2017-11-11] MEDS: BACTROBAN OINT EXT SCH ×2 (10:53→20:48)
[2017-11-11] MEDS: LASIX PO SCH (10:53)
[2017-11-11] MEDS: ELIQUIS PO SCH ×2 (10:53→20:35)
[2017-11-11] MEDS: SYNTHROID 100 mcg TAB PO SCH (10:54)
[2017-11-11] MEDS: PAXIL PO SCH ×2 (10:54→20:34)
[2017-11-11] MEDS: COZAAR PO SCH (10:54)
[2017-11-11] MEDS: REGLAN TAB 5 MG PO SCH ×4 (10:55→20:34)
[2017-11-11] MEDS: VANCOMYCIN HCL 1 GM VIAL 1 GM in D5W 250 ML IV 250 ML IV SCH ×5 (10:55→22:12)
[2017-11-11] MEDS: NORVASC TAB 10 MG PO SCH (10:55)
[2017-11-11 11:33] LABS: CKMB % 2.5 % (<4); CREATINE KINASE 40 Units/L (26-192); CREATINE KINASE MB < 1.0 ng/mL (0-4.0); TROPONIN I < 0.02 ng/mL (0-1.5)
[2017-11-11] MEDS: HumuLIN R SUBCUT PRN ×2 (13:20→18:43)
[2017-11-11] MEDS: MAGNESIUM SULFATE 1 GM/100 mL PREMIX 1 GM/100 ML BAG IV PRN ×2 (13:21→14:53)
[2017-11-11] MEDS ORDERED: INSULIN ASPART 14 UNIT SQ SCH (14:00)
[2017-11-11 17:31] LABS: CKMB % 2.6 % (<4); CREATINE KINASE 38 Units/L (26-192); CREATINE KINASE MB < 1.0 ng/mL (0-4.0); TROPONIN I < 0.02 ng/mL (0-1.5)
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
[2017-11-11] MEDS: RisperDAL TAB 1 MG PO SCH (20:34)
[2017-11-11] MEDS ORDERED: LEVEMIR SC SCH (21:00)
[2017-11-11] MEDS ORDERED: PATIENT'S HOME MEDICATION (Risperidone [Risperidone] 1 TAB) PO SCH (21:00)
[2017-11-11] MEDS: SNACK - Diabetic Appropriate PO SCH (21:46)
[2017-11-11] MEDS: LEVEMIR SC SCH (21:46)
[2017-11-12] MEDS: TYLENOL 325 MG TAB PO PRN (05:06)
[2017-11-12] MEDS ORDERED: PHARMACY COMMENT IV NR (05:30)
[2017-11-12 05:35] LABS: BASOPHILS % (AUTO) 0.9 % (0.2-1.0); EOSINOPHILS # (AUTO) 0.2 x10^3/uL (0.0-0.2); EOSINOPHILS % (AUTO) 4.6 % (0.9-2.9); HEMOGLOBIN 10.7 g/dL (12.0-16.0); LYMPHOCYTES % (AUTO) 23.5 % (21.0-51.0); MEAN CORPUSCULAR HEMOGLOBIN 28.6 pg (27.0-34.0); MEAN CORPUSCULAR HGB CONC 33.3 g/dL (33.0-35.0); MEAN CORPUSCULAR VOLUME 85.8 fL (80.0-100.0); MEAN PLATELET VOLUME 7.8 fL (7.4-11.0); MONOCYTES # (AUTO) 0.3 x10^3/uL (0.3-0.8); MONOCYTES % (AUTO) 7.7 % (0.0-13.0); NEUTROPHILS # (AUTO) 2.8 x10^3/uL (2.2-4.8); NEUTROPHILS % (AUTO) 63.3 % (42.0-75.0); PLATELET COUNT 239 X10^3/uL (150.0-450.0); RED BLOOD COUNT 3.73 X10^6/uL (3.5-5.4); RED CELL DISTRIBUTION WIDTH 14.9 % (11.6-16.5); WHITE BLOOD COUNT 4.4 X10^3/uL (3.6-10.0)
[2017-11-12 05:47] LABS: ALANINE AMINOTRANSFERASE 27 Units/L (12-78); ALBUMIN 2.8 g/dL (3.4-5.0); ALKALINE PHOSPHATASE 172 Units/L (46-116); ASPARTATE AMINO TRANSFERASE 8 Units/L (15-37); BLOOD UREA NITROGEN 10 mg/dL (7-18); CALCIUM 8.3 mg/dL (8.5-10.1); CARBON DIOXIDE 33.8 mmol/L (21-32); CHLORIDE 100 mmol/L (98-107); COR CA(FOR HYPOALB) 9.3 mg/dL (8.5-10.1); COR NA(FOR HYPERGLY) 143 mmol/L (136-145); CREATININE 0.83 mg/dL (0.55-1.02); MAGNESIUM 1.9 mg/dL (1.7-2.9); SODIUM 138 mmol/L (136-145); eGFR BLACK RACES > 60 (>60); eGFR NON BLACK RACES > 60 (>60)
[2017-11-12] MEDS: HumuLIN R SUBCUT PRN ×2 (05:55→13:53)
[2017-11-12 06:38] LABS: CREATININE 0.79 mg/dL (0.55-1.02); VANCOMYCIN,TROUGH 8.7 ug/mL (15-20)
--- NOTE | 2017-11-12 06:42 | RAD ---
HISTORY: Hypertension, congestive heart failure Study: Chest AP portable Comparison: November 09, 2017 Findings: The heart is within normal limits in size. The abe are normal. The lung lee are clear. No pleural effusions are identified. The bony thorax is unremarkable. IMPRESSION: Lungs clear Reported By:
[2017-11-12] MEDS: VANCOMYCIN HCL 1 GM VIAL 1 GM in D5W 250 ML IV 250 ML IV SCH ×3 (06:44→21:54)
[2017-11-12] MEDS: ELIQUIS PO SCH (09:35)
[2017-11-12] MEDS: PAXIL PO SCH ×2 (09:36→20:25)
[2017-11-12] MEDS: REGLAN TAB 5 MG PO SCH ×4 (09:36→20:25)
[2017-11-12] MEDS: COZAAR PO SCH (09:36)
[2017-11-12] MEDS: LASIX PO SCH (09:36)
[2017-11-12] MEDS: NORVASC TAB 10 MG PO SCH (09:36)
[2017-11-12] MEDS: SYNTHROID 100 mcg TAB PO SCH (09:36)
[2017-11-12] MEDS: BACTROBAN OINT EXT SCH ×2 (09:41→20:37)
--- NOTE | 2017-11-12 13:44 | PCM.PROG ---
Progress Note - Progress Note for Day of Date: 11/12/17 - Subjective Subjective: patient is a 52-year-old white female with a left lower extremity DVT with cellulitis. Patient is currently on IV vancomycin. Patient has been on Eliquis. patient continues to haveRedness to left lower extremity, edema appears to be slightly worsened this a.m. Plan to change to Lovenox, elevate left lower extremity repeat a.m. labs - Past Medical Family Social History Past Med/Fam/Surg Hx: No changes since H&P Allergies: Allergies clarithromycin Allergy (Verified 08/27/17 22:11) hydromorphone Adverse Reaction (Verified 08/27/17 22:11) - Review of Systems ROS: No change since H&P - Vital Signs and I&O's Vital Signs: Temperature 98.4 F Pulse Rate [Left Brachial] 98 Pulse Rate 95 Respiratory Rate 22 Blood Pressure [Left Arm] 130/58 Blood Pressure [Right Arm] 102/50 Blood Pressure 130/61 O2 Sat by Pulse Oximetry 91 Intake and Output: Intake & Output 11/10/17 11/11/17 11/12/17 11/13/17 11:59 11:59 11:59 11:59 Intake Total 960 Balance 960 - Physical Exam Oriented: Normal Eyes: Normal Ear: Normal Nose: Normal Throat: Normal Respiratory: Diminished Cardiovascular: Normal, Edema : Normal Auscultation: Bowel Sounds: Normal Tenderness: Normal Skin: Red Musculoskeletal: Leg, Swelling, Tender Psychiatric: Anxiety, Depression Speech Pattern: Clear, Appropriate - Laboratory and Diagnostics Result Diagrams: 11/12/17 04:55 11/12/17 04:55 Labs: Laboratory WBC 4.4 X10^3/uL (3.6-10.0) 11/12/17 04:55 RBC 3.73 X10^6/uL (3.5-5.4) 11/12/17 04:55 Hgb 10.7 g/dL (12.0-16.0) L 11/12/17 04:55 Hct 32.0 % (36.0-47.0) L 11/12/17 04:55 MCV 85.8 fL (80.0-100.0) 11/12/17 04:55 MCH 28.6 pg (27.0-34.0) 11/12/17 04:55 MCHC 33.3 g/dL (33.0-35.0) 11/12/17 04:55 RDW 14.9 % (11.6-16.5) 11/12/17 04:55 Plt Count 239 X10^3/uL (150.0-450.0) 11/12/17 04:55 MPV 7.8 fL (7.4-11.0) 11/12/17 04:55 Neut % 63.3 % (42.0-75.0) 11/12/17 04:55 Lymph % 23.5 % (21.0-51.0) 11/12/17 04:55 Dane % 7.7 % (0.0-13.0) 11/12/17 04:55 Eos % 4.6 % (0.9-2.9) H 11/12/17 04:55 Baso % 0.9 % (0.2-1.0) 11/12/17 04:55 Neut # 2.8 x10^3/uL (2.2-4.8) 11/12/17 04:55 Lymph # 1.0 X10^3/uL (1.3-2.9) L 11/12/17 04:55 Dane # 0.3 x10^3/uL (0.3-0.8) 11/12/17 04:55 Eos # 0.2 x10^3/uL (0.0-0.2) 11/12/17 04:55 Baso # 0.0 X10^3/uL (0.0-0.1) 11/12/17 04:55 Absolute Nucleated RBC 0.0 /100WBC 11/12/17 04:55 INR Target Range - 11/12/17 04:55 INR 1.20 (0.8-1.3) 11/12/17 04:55 PTT 31.3 SECONDS (22.9-36.5) 11/12/17 04:55 PTT Comment - 11/12/17 04:55 D-Dimer 2560 ng/mL (0-400) H* 11/11/17 04:13 Sodium 138 mmol/L (136-145) 11/12/17 04:55 Corrected Sodium 143 mmol/L (136-145) 11/12/17 04:55 Potassium 4.1 mmol/L (3.5-5.1) 11/12/17 04:55 Chloride 100 mmol/L (98-107) 11/12/17 04:55 Carbon Dioxide 33.8 mmol/L (21-32) H 11/12/17 04:55 BUN 10 mg/dL (7-18) 11/12/17 04:55 Creatinine 0.79 mg/dL (0.55-1.02) 11/12/17 04:55 Est GFR (MDRD) Af Amer > 60 (>60) 11/12/17 04:55 Est GFR (MDRD) Non-Af > 60 (>60) 11/12/17 04:55 Glucose 317 mg/dL (65-99) H 11/12/17 04:55 POC Glucose (mg/dL) 324 mg/dL (65-99) H 11/12/17 11:45 Calcium 8.3 mg/dL (8.5-10.1) L 11/12/17 04:55 Corrected Calcium 9.3 mg/dL (8.5-10.1) 11/12/17 04:55 Magnesium 1.9 mg/dL (1.7-2.9) 11/12/17 04:55 Total Bilirubin 0.20 mg/dL (0.2-1.0) 11/12/17 04:55 AST 8 Units/L (15-37) L 11/12/17 04:55 ALT 27 Units/L (12-78) 11/12/17 04:55 Alkaline Phosphatase 172 Units/L (46-116) H 11/12/17 04:55 Creatine Kinase 38 Units/L (26-192) 11/11/17 16:51 CK-MB (CK-2) < 1.0 ng/mL (0-4.0) 11/11/17 16:51 CK/CKMB % Calc 2.6 % (<4) 11/11/17 16:51 Troponin I < 0.02 ng/mL (0-1.5) 11/11/17 16:51 Total Protein 7.0 g/dL (6.4-8.2) 11/12/17 04:55 Albumin 2.8 g/dL (3.4-5.0) L 11/12/17 04:55 Globulin 4.2 g/dL (2.5-4.5) 11/12/17 04:55 Albumin/Globulin Ratio 0.7 Ratio (1.1-2.1) L 11/12/17 04:55 Vancomycin Trough 8.7 ug/mL (15-20) L 11/12/17 04:55 - Plan (1) Cellulitis Status: Acute Qualifiers: Site of cellulitis: extremity Site of cellulitis of extremity: lower extremity Laterality: right Qualified Code(s): L03.115 - Cellulitis of right lower limb Plan: CONTINUE HOME MEDS. IV ATBX, REPEAT AM LABS. BP CONTROL, BS CONTROL (2) DVT (deep venous thrombosis) Status: Acute Qualifiers: DVT location: lower extremity Affected thrombotic vein of extremity: unspecified vein of extremity Chronicity: acute Laterality: left Qualified Code(s): I82.402 - Acute embolism and thrombosis of unspecified deep veins of left lower extremity Plan: LOVENOX WHILE INPT (3) CHF (congestive heart failure) Status: Chronic Plan: CXR THIS AM CLEAR (4) COPD (chronic obstructive pulmonary disease) Status: Chronic (5) Diabetes mellitus Status: Chronic Qualifiers: (6) Hypertension Status: Chronic
[2017-11-12] MEDS ORDERED: PHARMACY CONSULT - DOSE _____ XX SCH (14:00)
[2017-11-12] MEDS: RisperDAL TAB 1 MG PO SCH (20:25)
[2017-11-12] MEDS: LOVENOX INJ 120 MG SYR SC SCH (20:26)
[2017-11-12] MEDS: LEVEMIR SC SCH (20:38)
[2017-11-12] MEDS: SNACK - Diabetic Appropriate PO SCH (21:54)
[2017-11-13] MEDS: HumuLIN R SUBCUT PRN ×4 (05:48→20:23)
[2017-11-13] MEDS: VANCOMYCIN HCL 1 GM VIAL 1 GM in D5W 250 ML IV 250 ML IV SCH ×3 (05:48→21:32)
[2017-11-13 06:19] LABS: BASOPHILS % (AUTO) 0.7 % (0.2-1.0); EOSINOPHILS # (AUTO) 0.2 x10^3/uL (0.0-0.2); EOSINOPHILS % (AUTO) 5.6 % (0.9-2.9); HEMATOCRIT 31.3 % (36.0-47.0); HEMOGLOBIN 10.5 g/dL (12.0-16.0); LYMPHOCYTES # (AUTO) 1.2 X10^3/uL (1.3-2.9); LYMPHOCYTES % (AUTO) 30.2 % (21.0-51.0); MEAN CORPUSCULAR HEMOGLOBIN 28.7 pg (27.0-34.0); MEAN CORPUSCULAR HGB CONC 33.4 g/dL (33.0-35.0); MEAN CORPUSCULAR VOLUME 85.9 fL (80.0-100.0); MONOCYTES # (AUTO) 0.4 x10^3/uL (0.3-0.8); MONOCYTES % (AUTO) 9.9 % (0.0-13.0); NEUTROPHILS # (AUTO) 2.1 x10^3/uL (2.2-4.8); NEUTROPHILS % (AUTO) 53.6 % (42.0-75.0); PLATELET COUNT 246 X10^3/uL (150.0-450.0); RED BLOOD COUNT 3.65 X10^6/uL (3.5-5.4); RED CELL DISTRIBUTION WIDTH 14.8 % (11.6-16.5); WHITE BLOOD COUNT 3.9 X10^3/uL (3.6-10.0)
[2017-11-13 06:25] LABS: ALANINE AMINOTRANSFERASE 27 Units/L (12-78); ALBUMIN 2.7 g/dL (3.4-5.0); ALKALINE PHOSPHATASE 159 Units/L (46-116); ASPARTATE AMINO TRANSFERASE 16 Units/L (15-37); BLOOD UREA NITROGEN 11 mg/dL (7-18); CALCIUM 8.5 mg/dL (8.5-10.1); CARBON DIOXIDE 34.7 mmol/L (21-32); CHLORIDE 99 mmol/L (98-107); COR CA(FOR HYPOALB) 9.5 mg/dL (8.5-10.1); COR NA(FOR HYPERGLY) 142 mmol/L (136-145); CREATININE 0.67 mg/dL (0.55-1.02); SODIUM 138 mmol/L (136-145); TOTAL PROTEIN 6.8 g/dL (6.4-8.2); eGFR BLACK RACES > 60 (>60); eGFR NON BLACK RACES > 60 (>60)
[2017-11-13] MEDS: LOVENOX INJ 120 MG SYR SC SCH ×2 (08:53→20:22)
[2017-11-13] MEDS: COZAAR PO SCH (08:54)
[2017-11-13] MEDS: NORVASC TAB 10 MG PO SCH (08:54)
[2017-11-13] MEDS: REGLAN TAB 5 MG PO SCH ×4 (08:54→20:22)
[2017-11-13] MEDS: SYNTHROID 100 mcg TAB PO SCH (08:54)
[2017-11-13] MEDS: LASIX PO SCH (08:54)
[2017-11-13] MEDS: PAXIL PO SCH ×2 (08:55→20:21)
[2017-11-13] MEDS: BACTROBAN OINT EXT SCH ×2 (09:00→20:27)
[2017-11-13 14:51] LABS: CREATININE 0.77 mg/dL (0.55-1.02); VANCOMYCIN,TROUGH 9.2 ug/mL (15-20)
[2017-11-13] MEDS: RisperDAL TAB 1 MG PO SCH (20:21)
[2017-11-13] MEDS: LEVEMIR SC SCH (20:22)
[2017-11-13] MEDS: SNACK - Diabetic Appropriate PO SCH (21:32)
[2017-11-14] MEDS: TYLENOL 325 MG TAB PO PRN (00:30)
[2017-11-14] MEDS: VANCOMYCIN HCL 1 GM VIAL 1 GM in D5W 250 ML IV 250 ML IV SCH (05:29)
[2017-11-14] MEDS: HumuLIN R SUBCUT PRN ×2 (06:03→11:37)
[2017-11-14 06:17] LABS: BASOPHILS % (AUTO) 0.9 % (0.2-1.0); EOSINOPHILS # (AUTO) 0.2 x10^3/uL (0.0-0.2); EOSINOPHILS % (AUTO) 5.1 % (0.9-2.9); HEMATOCRIT 31.9 % (36.0-47.0); HEMOGLOBIN 10.8 g/dL (12.0-16.0); LYMPHOCYTES # (AUTO) 1.3 X10^3/uL (1.3-2.9); LYMPHOCYTES % (AUTO) 30.5 % (21.0-51.0); MEAN CORPUSCULAR HEMOGLOBIN 28.9 pg (27.0-34.0); MEAN CORPUSCULAR HGB CONC 33.7 g/dL (33.0-35.0); MEAN CORPUSCULAR VOLUME 85.7 fL (80.0-100.0); MEAN PLATELET VOLUME 8.1 fL (7.4-11.0); MONOCYTES # (AUTO) 0.4 x10^3/uL (0.3-0.8); MONOCYTES % (AUTO) 8.8 % (0.0-13.0); NEUTROPHILS # (AUTO) 2.3 x10^3/uL (2.2-4.8); NEUTROPHILS % (AUTO) 54.7 % (42.0-75.0); PLATELET COUNT 248 X10^3/uL (150.0-450.0); RED BLOOD COUNT 3.73 X10^6/uL (3.5-5.4); RED CELL DISTRIBUTION WIDTH 15.1 % (11.6-16.5); WHITE BLOOD COUNT 4.1 X10^3/uL (3.6-10.0)
[2017-11-14 06:28] LABS: ALANINE AMINOTRANSFERASE 24 Units/L (12-78); ALBUMIN 2.8 g/dL (3.4-5.0); ALKALINE PHOSPHATASE 145 Units/L (46-116); ASPARTATE AMINO TRANSFERASE 19 Units/L (15-37); BLOOD UREA NITROGEN 9 mg/dL (7-18); CALCIUM 8.8 mg/dL (8.5-10.1); CHLORIDE 99 mmol/L (98-107); COR CA(FOR HYPOALB) 9.8 mg/dL (8.5-10.1); COR NA(FOR HYPERGLY) 141 mmol/L (136-145); CREATININE 0.54 mg/dL (0.55-1.02); SODIUM 138 mmol/L (136-145); eGFR BLACK RACES > 60 (>60); eGFR NON BLACK RACES > 60 (>60)
[2017-11-14] MEDS: COZAAR PO SCH (08:42)
[2017-11-14] MEDS: NORVASC TAB 10 MG PO SCH (08:43)
[2017-11-14] MEDS: REGLAN TAB 5 MG PO SCH (08:43)
[2017-11-14] MEDS: LASIX PO SCH (08:43)
[2017-11-14] MEDS: SYNTHROID 100 mcg TAB PO SCH (08:43)
[2017-11-14] MEDS: PAXIL PO SCH (08:43)
[2017-11-14] MEDS: LOVENOX INJ 120 MG SYR SC SCH (08:44)
--- NOTE | 2017-11-14 08:54 | RAD ---
HISTORY: Shortness of breath Study: Chest AP portable Comparison: November 12, 2017 Findings: The lungs are mildly hypo inflated accentuating the heart size. The heart is upper limits normal in s ize. The lung lee are clear. No congestive heart failure or pleural effusions are identified. IMPRESSION: Lungs clear Reported By:
[2017-11-14 12:05] VITALS: BP 129/62
--- NOTE | 2017-11-18 16:22 | PCM.DCPLAN ---
Discharge Summary - Admission Date Date of Admission: 11/11/17 - Discharge Date Discharge Date: 11/16/17 - Admission Diagnoses (1) Cellulitis Status: Acute (2) DVT (deep venous thrombosis) Status: Acute (3) COPD (chronic obstructive pulmonary disease) Status: Chronic (4) Chronic kidney disease (CKD) stage G2/A3, mildly decreased glomerular filtration rate (GFR) between 60-89 mL/min/1.73 square meter and albuminuria creatinine ratio greater than 300 mg/g Status: Chronic (5) Diabetes mellitus Status: Chronic - Discharge Diagnoses Discharge Diagnosis: SAME ADMISSION DIAGNOSIS - Discharge Medications Discharge Medications: Apixaban [Eliquis] 5 mg PO BID 11/11/17 [History] Hydrochlorothiazide [HYDROCHLOROTHIAZIDE 25 MG TAB *] 1 tab PO TID PRN 11/11/17 [History] Paroxetine HCl [Paxil] 1 tab PO BID 11/11/17 [History] RX: Amlodipine Besylate [NORVASC 5 MG *] 1 tab PO DAILY 11/11/17 [History] Ropinirole HCl [REQUIP 1 MG *] 1 tab PO TID 11/11/17 [History] - Hospital Course Vital Signs: Temperature 97.9 F Pulse Rate [Right Brachial] 86 Pulse Rate [Left Brachial] 90 Pulse Rate 88 Respiratory Rate 20 Blood Pressure [Left Arm] 130/80 Blood Pressure [Right Arm] 129/62 Blood Pressure 130/61 O2 Sat by Pulse Oximetry 95 Latest Lab Results: Laboratory Last Values WBC 4.1 X10^3/uL (3.6-10.0) 11/14/17 04:35 RBC 3.73 X10^6/uL (3.5-5.4) 11/14/17 04:35 Hgb 10.8 g/dL (12.0-16.0) L 11/14/17 04:35 Hct 31.9 % (36.0-47.0) L 11/14/17 04:35 MCV 85.7 fL (80.0-100.0) 11/14/17 04:35 MCH 28.9 pg (27.0-34.0) 11/14/17 04:35 MCHC 33.7 g/dL (33.0-35.0) 11/14/17 04:35 RDW 15.1 % (11.6-16.5) 11/14/17 04:35 Plt Count 248 X10^3/uL (150.0-450.0) 11/14/17 04:35 MPV 8.1 fL (7.4-11.0) 11/14/17 04:35 Neut % 54.7 % (42.0-75.0) 11/14/17 04:35 Lymph % 30.5 % (21.0-51.0) 11/14/17 04:35 [place] % 8.8 % (0.0-13.0) 11/14/17 04:35 Eos % 5.1 % (0.9-2.9) H 11/14/17 04:35 Baso % 0.9 % (0.2-1.0) 11/14/17 04:35 Neut # 2.3 x10^3/uL (2.2-4.8) 11/14/17 04:35 Lymph # 1.3 X10^3/uL (1.3-2.9) 11/14/17 04:35 [place] # 0.4 x10^3/uL (0.3-0.8) 11/14/17 04:35 Eos # 0.2 x10^3/uL (0.0-0.2) 11/14/17 04:35 Baso # 0.0 X10^3/uL (0.0-0.1) 11/14/17 04:35 Absolute Nucleated RBC 0.2 /100WBC 11/14/17 04:35 INR Target Range - 11/12/17 04:55 INR 1.20 (0.8-1.3) 11/12/17 04:55 PTT 31.3 SECONDS (22.9-36.5) 11/12/17 04:55 PTT Comment - 11/12/17 04:55 D-Dimer 2560 ng/mL (0-400) H* 11/11/17 04:13 Sodium 138 mmol/L (136-145) 11/14/17 04:35 Corrected Sodium 141 mmol/L (136-145) 11/14/17 04:35 Potassium 3.8 mmol/L (3.5-5.1) 11/14/17 04:35 Chloride 99 mmol/L (98-107) 11/14/17 04:35 Carbon Dioxide 33.0 mmol/L (21-32) H 11/14/17 04:35 BUN 9 mg/dL (7-18) 11/14/17 04:35 Creatinine 0.54 mg/dL (0.55-1.02) L 11/14/17 04:35 Est GFR (MDRD) Af Amer > 60 (>60) 11/14/17 04:35 Est GFR (MDRD) Non-Af > 60 (>60) 11/14/17 04:35 Glucose 237 mg/dL (65-99) H 11/14/17 04:35 POC Glucose (mg/dL) 306 mg/dL (65-99) H 11/14/17 11:00 Calcium 8.8 mg/dL (8.5-10.1) 11/14/17 04:35 Corrected Calcium 9.8 mg/dL (8.5-10.1) 11/14/17 04:35 Magnesium 1.9 mg/dL (1.7-2.9) 11/12/17 04:55 Total Bilirubin 0.30 mg/dL (0.2-1.0) 11/14/17 04:35 AST 19 Units/L (15-37) 11/14/17 04:35 ALT 24 Units/L (12-78) 11/14/17 04:35 Alkaline Phosphatase 145 Units/L (46-116) H 11/14/17 04:35 Creatine Kinase 38 Units/L (26-192) 11/11/17 16:51 CK-MB (CK-2) < 1.0 ng/mL (0-4.0) 11/11/17 16:51 CK/CKMB % Calc 2.6 % (<4) 11/11/17 16:51 Troponin I < 0.02 ng/mL (0-1.5) 11/11/17 16:51 Total Protein 7.0 g/dL (6.4-8.2) 11/14/17 04:35 Albumin 2.8 g/dL (3.4-5.0) L 11/14/17 04:35 Globulin 4.2 g/dL (2.5-4.5) 11/14/17 04:35 Albumin/Globulin Ratio 0.7 Ratio (1.1-2.1) L 11/14/17 04:35 Vancomycin Trough 9.2 ug/mL (15-20) L 11/13/17 14:00 Hospital Course: 52 WF ER ADMISSION WITH LLE PAIN AND REDNESS, CELLULITIS TO LLE. PT RECENTLY DX WITH DVT AND ON PO ELIQUIS. PT HAS PMH OF HTN, MO, ARTHRITIS, DVT, GERD. PATIENT WAS ADMITTED FOR IV ATBX TREATMENT OF CELLULITIS. PATIENT HAD IMPROVEMENT OF SYMPTOMS AND WAS DISCHARGED HOME TO BE FOLLOWED ON OP BASIS. - Discharge Plan Disposition: 01 HOME, SELF-CARE Condition: Stable - Follow ups/Referrals Follow ups/Referrals: ELYSIA COLUNGA [Primary Care Provider] - 12/04/17 11:00 am - Instructions Instructions: Chronic Obstructive Pulmonary Disease, [id number], Cellulitis, Adult, [id number], Hypertension, [id number], Heart Failure, [id number], Deep Vein Thrombosis Forms: Patient Portal
== END 2017-11-14 16:10 | disposition home or self-care (01) ==
LOC: ER 03:02 → MED/SURG 08:16
PROVIDERS: ADMIT Internal Medicine; ATTEND Internal Medicine
DX: L03.116 Cellulitis of left lower limb (principal); I82.402 Acute embolism and thrombosis of unspecified deep veins of left lower extremity; N18.2 Chronic kidney disease, stage 2 (mild); I50.9 Heart failure, unspecified; E03.8 Other specified hypothyroidism; E78.2 Mixed hyperlipidemia; I10 Essential (primary) hypertension; M13.89 Other specified arthritis, multiple sites; K21.9 Gastro-esophageal reflux disease without esophagitis; J44.9 Chronic obstructive pulmonary disease, unspecified; E11.65 Type 2 diabetes mellitus with hyperglycemia
CPT/HCPCS: 36415; 71045; 71275; 80053; 80202; 82550; 82553; 82565; 83735; 84132; 84484; 85025; 85378; 85610; 85730; 87040; 93005; 93010; 93971; 94640; 94660; 94760; 96365; 99284; A4222; A4618; A7030; 1956; G0378; J1650; J1815; J3370

== ENCOUNTER 2017-11-17 20:56 | Emergency (ER) | payer SELFPAY ==
[2017-11-17 21:02] VITALS: BMI 48.4
[2017-11-17] MEDS ORDERED: NS 1000 ML 1,000 ML IV ONE (21:38)
[2017-11-17] MEDS ORDERED: NS 1000 ML 1,000 ML ONE (21:40)
--- NOTE | 2017-11-17 21:51 | RAD ---
HISTORY: 52-year-old female with shortness of breath and cough. Study: Frontal view of the chest. Comparison: Chest radiograph 11/14/2017 Findings: The trachea is midline. The cardiac silhouette is stably enlarged with low lung volumes and prominen t interstitium/perihilar lung markings. The lungs are clear without focal consolidation, effusion or pneumothorax. Soft tissues are unremarkable. Osseous structures are unremarkable. IMPRESSION: 1. No acute cardiopulmonary disease. Reported By:
--- NOTE | 2017-11-17 21:53 | DR.GENAD ---
HPI - PCP Primary Care Physician: ELYSIA COLUNGA - Complaint/Symptoms Chief Complaint Doctors Comments: Chief complaint read; I agree with statement Chief Complaint:: "MY SUGAR IS READING HIGH. A HOUR BEFORE THAT IS READ 517. I TOOK MEDICINE FOR IT BUT ITS NOT GOING DOWN. NOVOLIN 14UNITS SQ AND LEVEMIR 14UNITS SQ." Self Treatment fo Chief Complaint: NOVOLIN R 14UNITS. LEVEMIR 14UNITS - Source History Provided: Patient - Mode of Arrival Mode of Arrival: Ambulatory - Timing Onset of Chief Complaint: 11/17/17 PMH - PMH Past Medical History: Yes Past Medical History: CHF, COPD, Diabetes, Dyslipidemia, Hypertension, Hypothyroidism Past Surgical History: Yes Surgical History: Abdominal Surgery, Hysterectomy, Other - Family History History of Family Medical Conditions: Yes Family Medical History: Diabetes Mellitus, [place], Coronary Artery Disease, Hypertension - Social History Does patient currently use any type of tobacco product: No Have you used tobacco products in the last 12 months: No Type of Tobacco Use: None Alcohol Use: None Do you use any recreational Drugs:: No Lives With: Family Lives Where: Home - infectious screening Have you traveled outside the country in the last 6 months?: No Isolation: Standard ROS - Review of Systems Eyes: No Symptoms Reported ENTM: No Symptoms Reported Respiratoy: No Symptoms Reported Cardiovascular: No Symptoms Reported Gastrointestinal/Abdominal: No Symptoms Reported Genitourinary: No Symptoms Reported Neurological: No Symptoms Reported Musculoskeletal: No Symptoms Reported Integumentary: No Symptoms Reported Hematologic/Lymphatic: No Symptoms Reported Endocrine: No Symptoms Reported Psychiatric: No Symptoms Reported All Other Systems: Reviewed and Negative PE - Vital Signs Vitals: Temperature 97.7 F Pulse Rate 97 Respiratory Rate 20 Blood Pressure [Left Arm] 130/80 Blood Pressure [Right Arm] 129/62 Blood Pressure 134/65 O2 Sat by Pulse Oximetry 93 - General General Appearance: Alert, In No Apparent Distress - Head Head Exam: Normal Inspection, Atraumatic - Eyes Eye exam: Normal Appearance, PERRL, Scleral Icterus - ENT ENT Exam: Normal Exam External Ear Exam: Normal External Inspection TM/Canal Exam: Bilateral Normal Nose Exam: Normal Nose Exam Mouth Exam: Normal Inspection Throat Exam: Normal Inspection - Neck Neck Exam: Normal Inspection, Full ROM - Chest Chest Inspection: Normal Inspection - Respiratory Respiratory Exam: Normal Lung Sounds Bilat Respiratory Exam: Bilateral Clear to Auscultation - Cardiovascular Cardiovascular Exam: Regular Rate, Normal Rhythm - Abdominal Exam Abdominal Exam: Normal Inspection Abdominal Tenderness: negative: RUQ, RLQ, LUQ, LLQ, Epigastrium, Suprapubic, Diffuse, Mild, Moderate, Severe, Other - Extremities Extremities Exam: Normal Inspection - Back Back Exam: Normal Inspection, Full ROM - Neurologic Neurological Exam: Alert, Oriented X3, CN II-XII Intact - Psychiatric Psychiatric Exam: Normal Affect, Normal Mood - Skin Skin Exam: Warm, Dry, Intact Course - Treatment Treatment: 8 units of regular insulin based on sliding scale 8units for glucose 323 - Reevaluation 1st: Improved ROR - Labs Reviewed Result Diagrams: 11/17/17 21:55 11/17/17 21:55 Laboratory: WBC 5.2 X10^3/uL (3.6-10.0) 11/17/17 21:55 RBC 4.10 X10^6/uL (3.5-5.4) 11/17/17 21:55 Hgb 11.8 g/dL (12.0-16.0) L 11/17/17 21:55 Hct 35.3 % (36.0-47.0) L 11/17/17 21:55 MCV 86.0 fL (80.0-100.0) 11/17/17 21:55 MCH 28.9 pg (27.0-34.0) 11/17/17 21:55 MCHC 33.6 g/dL (33.0-35.0) 11/17/17 21:55 RDW 15.9 % (11.6-16.5) 11/17/17 21:55 Plt Count 275 X10^3/uL (150.0-450.0) 11/17/17 21:55 MPV 7.8 fL (7.4-11.0) 11/17/17 21:55 Neut % 64.1 % (42.0-75.0) 11/17/17 21:55 Lymph % 23.7 % (21.0-51.0) 11/17/17 21:55 Cannon % 8.8 % (0.0-13.0) 11/17/17 21:55 Eos % 2.7 % (0.9-2.9) 11/17/17 21:55 Baso % 0.7 % (0.2-1.0) 11/17/17 21:55 Neut # 3.3 x10^3/uL (2.2-4.8) 11/17/17 21:55 Lymph # 1.2 X10^3/uL (1.3-2.9) L 11/17/17 21:55 Cannon # 0.5 x10^3/uL (0.3-0.8) 11/17/17 21:55 Eos # 0.1 x10^3/uL (0.0-0.2) 11/17/17 21:55 Baso # 0.0 X10^3/uL (0.0-0.1) 11/17/17 21:55 Absolute Nucleated RBC 0.1 /100WBC 11/17/17 21:55 Sodium 135 mmol/L (136-145) L 11/17/17 21:55 Corrected Sodium 143 mmol/L (136-145) 11/17/17 21:55 Potassium 3.8 mmol/L (3.5-5.1) 11/17/17 21:55 Chloride 97 mmol/L (98-107) L 11/17/17 21:55 Carbon Dioxide 28.1 mmol/L (21-32) 11/17/17 21:55 BUN 13 mg/dL (7-18) 11/17/17 21:55 Creatinine 0.93 mg/dL (0.55-1.02) 11/17/17 21:55 Est GFR (MDRD) Af Amer > 60 (>60) 11/17/17 21:55 Est GFR (MDRD) Non-Af > 60 (>60) 11/17/17 21:55 Glucose 422 mg/dL (65-99) H 11/17/17 21:55 POC Glucose (mg/dL) 323 mg/dL (65-99) H 11/17/17 23:13 Calcium 9.1 mg/dL (8.5-10.1) 11/17/17 21:55 C-Reactive Protein 31.00 mg/L (0-3.0) H 11/17/17 21:55 Specimen Type Clean catch urine 11/17/17 21:57 Urine Color Pale yellow (YELLOW) 11/17/17 21:57 Urine Appearance Clear (CLEAR) 02/18/18 21:57 Urine pH 6.0 (5.0 - 8.0) 11/17/17 21:57 Ur Specific [place] 1.010 (1.000-1.030) 11/17/17 21:57 Urine Protein Negative (NEGATIVE) 11/17/17 21:57 Urine Glucose (UA) 4+ (NEGATIVE) 11/17/17 21:57 Urine Ketones Negative (NEGATIVE) 11/17/17 21:57 Urine Occult Blood Negative (NEGATIVE) 11/17/17 21:57 Urine Nitrite Negative (NEGATIVE) 11/17/17 21:57 Urine Bilirubin Negative (NEGATIVE) 11/17/17 21:57 Urine Urobilinogen Normal (NORMAL) 11/17/17 21:57 Ur Leukocyte Esterase 1+ (NEGATIVE) 11/17/17 21:57 Urine RBC None seen /HPF (NEGATIVE) 11/17/17 21:57 Urine WBC 0-3 /HPF (NEGATIVE) 11/17/17 21:57 Ur Squamous Epith Cells Moderate /HPF (NEGATIVE) 11/17/17 21:57 Urine Bacteria Trace /HPF (NEGATIVE) 11/17/17 21:57 Ur Culture Indicated? No/not indicated 11/17/17 21:57 - XRAY XRAY Interpreted by: Radiologist (Chest: No acute cardiopulmonary disease) - Discharge Plan Condition: Stable - Follow ups/Referrals Follow ups/Referrals: ELYSIA COLUNGA [Primary Care Provider] - 3 days - Instructions
[2017-11-17 22:19] LABS: BASOPHILS % (AUTO) 0.7 % (0.2-1.0); BLOOD UREA NITROGEN 13 mg/dL (7-18); CALCIUM 9.1 mg/dL (8.5-10.1); CARBON DIOXIDE 28.1 mmol/L (21-32); CHLORIDE 97 mmol/L (98-107); COR NA(FOR HYPERGLY) 143 mmol/L (136-145); CREATININE 0.93 mg/dL (0.55-1.02); EOSINOPHILS # (AUTO) 0.1 x10^3/uL (0.0-0.2); EOSINOPHILS % (AUTO) 2.7 % (0.9-2.9); HEMATOCRIT 35.3 % (36.0-47.0); HEMOGLOBIN 11.8 g/dL (12.0-16.0); LYMPHOCYTES # (AUTO) 1.2 X10^3/uL (1.3-2.9); LYMPHOCYTES % (AUTO) 23.7 % (21.0-51.0); MEAN CORPUSCULAR HEMOGLOBIN 28.9 pg (27.0-34.0); MEAN CORPUSCULAR HGB CONC 33.6 g/dL (33.0-35.0); MEAN PLATELET VOLUME 7.8 fL (7.4-11.0); MONOCYTES # (AUTO) 0.5 x10^3/uL (0.3-0.8); MONOCYTES % (AUTO) 8.8 % (0.0-13.0); NEUTROPHILS # (AUTO) 3.3 x10^3/uL (2.2-4.8); NEUTROPHILS % (AUTO) 64.1 % (42.0-75.0); PLATELET COUNT 275 X10^3/uL (150.0-450.0); RED CELL DISTRIBUTION WIDTH 15.9 % (11.6-16.5); SODIUM 135 mmol/L (136-145); WHITE BLOOD COUNT 5.2 X10^3/uL (3.6-10.0); eGFR BLACK RACES > 60 (>60); eGFR NON BLACK RACES > 60 (>60)
[2017-11-17 22:26] LABS: BILIRUBIN,URINE NEGATIVE (NEGATIVE); BLOOD/HEMOGLOBIN,URINE NEGATIVE (NEGATIVE); GLUCOSE, URINE 4+ (NEGATIVE); KETONES,URINE NEGATIVE (NEGATIVE); LEUKOCYTE ESTERASE ,URINE 1+ (NEGATIVE); NITRITES,URINE NEGATIVE (NEGATIVE); PROTEIN,URINE NEGATIVE (NEGATIVE); UROBILINOGEN,URINE NORMAL (NORMAL)
[2017-11-17 22:38] LABS: APPEARANCE,URINE CLEAR (CLEAR); BACTERIA,URINE TRACE /HPF (NEGATIVE); COLOR,URINE PALE YELLOW (YELLOW); RBC,URINE NONE SEEN /HPF (NEGATIVE); SQUAMOUS EPITHELIAL CELL,UR MODERATE /HPF (NEGATIVE)
[2017-11-17] MEDS ORDERED: HumuLIN R SUBCUT ONE ×2 (22:56→23:15)
[2017-11-17] MEDS ORDERED: HumuLIN R ONE (23:17)
[2017-11-18 00:20] VITALS: BP 131/60
== END 2017-11-18 00:21 | disposition home or self-care (01) ==
LOC: ER 20:56
DX: R73.9 Hyperglycemia, unspecified (principal)
CPT/HCPCS: 36415; 71045; 80048; 81001; 85025; 86140; 96365; 96367; 96372; 99283; A4222; J1815

== ENCOUNTER 2017-12-03 16:47 | Observation (INO) | payer SELFPAY ==
--- NOTE | 2017-12-03 17:35 | DR.GENAD ---
HPI - PCP Primary Care Physician: Rachna COLUNGA - HPI Comment HPI Comment: SWELLING INCREASING AND PAIN FROM PRESSURE ALSO INCREASING. CHEST DISCOMFORT AND INCREASING HEADACHE ALSO. WORSE TONIGHT. NON PRODUCTIVE COUGH BUT NO FEVER. - Complaint/Symptoms Chief Complaint Doctors Comments: PAIN AND SWELLING LEFT LEG. ON ELIQEST FOR DVT. OUT OF MED FOR 4 DAYS. Chief Complaint:: PT. C/O LEFT LEG PAIN AND SWELLING. PT. HAS HX. DVT. PT. HAS BEEN OUT OF BLOOD THINNER SINCE SATURDAY (ELIQUIS). - Nurses notes reviewed Nurses Notes Review: Yes - Source History Provided: Patient - Mode of Arrival Mode of Arrival: Ambulatory - Timing Onset of Chief Complaint: 12/03/17 Came on: Suddenly - Duration Duration: Constant Duration: Days - Severity Severity: Moderate PMH - PMH Past Medical History: Yes Past Medical History: CHF, COPD, Diabetes, Dyslipidemia, Hypertension, Hypothyroidism Past Medical History Comment: DVT Past Surgical History: Yes Surgical History: Abdominal Surgery, Hysterectomy, Other - Family History History of Family Medical Conditions: Yes Family Medical History: Diabetes Mellitus, [place], Coronary Artery Disease, Hypertension - Social History Does patient currently use any type of tobacco product: No Have you used tobacco products in the last 12 months: No Type of Tobacco Use: None Does any household member use tobacco: No Alcohol Use: None Do you use any recreational Drugs:: No Lives With: Alone Lives Where: Home - infectious screening In the last 2 months have you had wt loss of >10#?: NO Have you had fever, night sweats or hemotysis?: No Have you traveled outside the country in the last 6 months?: No Isolation: Standard ROS - Review of Systems Constitutional: Weakness, Fatigue. negative: Chills, Fever Eyes: negative: Eye Pain, Discharge ENTM: negative: Ear Pain, Nose Discharge, Nose Congestion, Throat Pain Respiratoy: Non-Productive Cough, Short of Breath, Wheezing. negative: Hemoptysis Cardiovascular: Chest Pain, Edema Gastrointestinal/Abdominal: No Symptoms Reported. negative: Abdominal Pain, Diarrhea, Nausea, Vomiting Genitourinary: negative: Dysuria, Frequency, Hematuria Neurological: Headache, Weakness. negative: Dizziness Musculoskeletal: Joint Pain, Joint Swelling, Muscle Pain Integumentary: Bruises Hematologic/Lymphatic: Blood Clots, Easy Bleeding, Easy Bruising, Swollen Glands Endocrine: No Symptoms Reported All Other Systems: Reviewed and Negative PE - Vital Signs Vitals: Temperature 97.8 F Pulse Rate [Left Brachial] 83 Pulse Rate 87 Respiratory Rate 20 Blood Pressure [Left Arm] 136/63 Blood Pressure [Right Arm] 129/62 Blood Pressure 143/67 O2 Sat by Pulse Oximetry 94 - General Limitations: No Limitations General Appearance: Alert - Head Head Exam: Normal Inspection - Eyes Eye exam: Normal Appearance - ENT ENT Exam: Normal External Ear Exam External Ear Exam: Normal External Inspection TM/Canal Exam: Bilateral Normal Nose Exam: Normal Nose Exam Mouth Exam: Normal Inspection Throat Exam: Normal Inspection - Neck Neck Exam: Trachea Midline - Chest Chest Inspection: Symmetric Chest Wall Rise - Respiratory Respiratory Exam: Normal Lung Sounds Bilat Respiratory Exam: Bilateral Wheezing, Bilateral Rhonchi, Lower Wheezing, Lower Rhonchi - Cardiovascular Cardiovascular Exam: Regular Rate, Normal Rhythm, Normal Heart Sounds - Abdominal Exam Abdominal Exam: Normal Bowel Sounds, Soft. negative: Tenderness - Extremities Extremities Exam: Tenderness (SWELLING AND TENDERNESS LLE.), Edema (LLE.), Joint Swelling, Calf Tenderness - Back Back Exam: Tenderness - Neurologic Neurological Exam: Alert, Oriented X3 - Psychiatric Psychiatric Exam: Anxious - Skin Skin Exam: Erythema MDM - Differential Diagnosis Differential Diagnosis: DVT, PULMONARY ENBOLISM, [place], PNEUMONIA, CELLULITIS Course - Treatment Treatment: SEE ORDERS. LOVENOX S/C IN ED. - Education/Counseling Education/Counseling: Patient, Education Educated On: Treatment, Diagnosis, Needs for Follow Up ROR - Labs Reviewed Laboratory Results Reviewed?: Yes Result Diagrams: 12/04/17 06:20 12/04/17 06:20 Laboratory: WBC 4.0 X10^3/uL (3.6-10.0) 12/03/17 17:30 RBC 4.27 X10^6/uL (3.5-5.4) 12/03/17 17:30 Hgb 12.3 g/dL (12.0-16.0) 12/03/17 17:30 Hct 36.8 % (36.0-47.0) 12/03/17 17:30 MCV 86.3 fL (80.0-100.0) 12/03/17 17:30 MCH 28.7 pg (27.0-34.0) 12/03/17 17:30 MCHC 33.3 g/dL (33.0-35.0) 12/03/17 17:30 RDW 16.4 % (11.6-16.5) 12/03/17 17:30 Plt Count 262 X10^3/uL (150.0-450.0) 12/03/17 17:30 MPV 7.9 fL (7.4-11.0) 12/03/17 17:30 Neut % 56.1 % (42.0-75.0) 12/03/17 17:30 Lymph % 30.6 % (21.0-51.0) 12/03/17 17:30 [place] % 9.0 % (0.0-13.0) 12/03/17 17:30 Eos % 3.3 % (0.9-2.9) H 12/03/17 17:30 Baso % 1.0 % (0.2-1.0) 12/03/17 17:30 Neut # 2.2 x10^3/uL (2.2-4.8) 12/03/17 17:30 Lymph # 1.2 X10^3/uL (1.3-2.9) L 12/03/17 17:30 [place] # 0.4 x10^3/uL (0.3-0.8) 12/03/17 17:30 Eos # 0.1 x10^3/uL (0.0-0.2) 12/03/17 17:30 Baso # 0.0 X10^3/uL (0.0-0.1) 12/03/17 17:30 Absolute Nucleated RBC 0.1 /100WBC 12/03/17 17:30 INR Target Range - 12/03/17 17:30 INR 1.00 (0.8-1.3) 12/03/17 17:30 PTT 25.3 SECONDS (22.9-36.5) 12/03/17 17:30 PTT Comment - 12/03/17 17:30 D-Dimer 1170 ng/mL (0-400) H* 12/03/17 17:30 Sodium 138 mmol/L (136-145) 12/03/17 17:30 Corrected Sodium 145 mmol/L (136-145) 12/03/17 17:30 Potassium 3.5 mmol/L (3.5-5.1) 12/03/17 17:30 Chloride 98 mmol/L (98-107) 12/03/17 17:30 Carbon Dioxide 30.7 mmol/L (21-32) 12/03/17 17:30 BUN 15 mg/dL (7-18) 12/03/17 17:30 Creatinine 1.10 mg/dL (0.55-1.02) H 12/03/17 17:30 Est GFR (MDRD) Af Amer > 60 (>60) 12/03/17 17:30 Est GFR (MDRD) Non-Af 55 (>60) L 12/03/17 17:30 Glucose 392 mg/dL (65-99) H 12/03/17 17:30 Calcium 8.5 mg/dL (8.5-10.1) 12/03/17 17:30 Corrected Calcium 9.1 mg/dL (8.5-10.1) 12/03/17 17:30 Total Bilirubin 0.20 mg/dL (0.2-1.0) 12/03/17 17:30 AST 9 Units/L (15-37) L 12/03/17 17:30 ALT 27 Units/L (12-78) 12/03/17 17:30 Alkaline Phosphatase 164 Units/L (46-116) H 12/03/17 17:30 Creatine Kinase 57 Units/L (26-192) 12/03/17 17:30 CK-MB (CK-2) < 1.0 ng/mL (0-4.0) 12/03/17 17:30 CK/CKMB % Calc 1.8 % (<4) 12/03/17 17:30 Troponin I < 0.02 ng/mL (0-1.5) 12/03/17 17:30 Total Protein 7.8 g/dL (6.4-8.2) 12/03/17 17:30 Albumin 3.2 g/dL (3.4-5.0) L 12/03/17 17:30 Globulin 4.6 g/dL (2.5-4.5) H 12/03/17 17:30 Albumin/Globulin Ratio 0.7 Ratio (1.1-2.1) L 12/03/17 17:30 - XRAY XRAY Interpreted by: Radiologist XRAY Findings: REPORT DISCUSS WITH PATIENT. - EKG Rhythm: NSR (EKG NOTED.) - Diagnosis Discharge Problem: DVT (deep venous thrombosis), Acute pain of left lower extremity - Discharge Plan Disposition: ADMITTED INPATIENT Condition: Stable - Follow ups/Referrals - Instructions
[2017-12-03 18:10] LABS: BLOOD UREA NITROGEN 15 mg/dL (7-18); CALCIUM 8.5 mg/dL (8.5-10.1); CARBON DIOXIDE 30.7 mmol/L (21-32); CHLORIDE 98 mmol/L (98-107); COR NA(FOR HYPERGLY) 145 mmol/L (136-145); SODIUM 138 mmol/L (136-145); TROPONIN I < 0.02 ng/mL (0-1.5); eGFR BLACK RACES > 60 (>60); eGFR NON BLACK RACES 55 (>60)
[2017-12-03 18:15] LABS: ALANINE AMINOTRANSFERASE 27 Units/L (12-78); ALBUMIN 3.2 g/dL (3.4-5.0); ALKALINE PHOSPHATASE 164 Units/L (46-116); ASPARTATE AMINO TRANSFERASE 9 Units/L (15-37); CKMB % 1.8 % (<4); COR CA(FOR HYPOALB) 9.1 mg/dL (8.5-10.1); CREATINE KINASE 57 Units/L (26-192); CREATINE KINASE MB < 1.0 ng/mL (0-4.0); TOTAL PROTEIN 7.8 g/dL (6.4-8.2)
[2017-12-03 18:20] LABS: EOSINOPHILS # (AUTO) 0.1 x10^3/uL (0.0-0.2); EOSINOPHILS % (AUTO) 3.3 % (0.9-2.9); HEMATOCRIT 36.8 % (36.0-47.0); HEMOGLOBIN 12.3 g/dL (12.0-16.0); LYMPHOCYTES # (AUTO) 1.2 X10^3/uL (1.3-2.9); LYMPHOCYTES % (AUTO) 30.6 % (21.0-51.0); MEAN CORPUSCULAR HEMOGLOBIN 28.7 pg (27.0-34.0); MEAN CORPUSCULAR HGB CONC 33.3 g/dL (33.0-35.0); MEAN CORPUSCULAR VOLUME 86.3 fL (80.0-100.0); MEAN PLATELET VOLUME 7.9 fL (7.4-11.0); MONOCYTES # (AUTO) 0.4 x10^3/uL (0.3-0.8); NEUTROPHILS # (AUTO) 2.2 x10^3/uL (2.2-4.8); NEUTROPHILS % (AUTO) 56.1 % (42.0-75.0); PLATELET COUNT 262 X10^3/uL (150.0-450.0); RED BLOOD COUNT 4.27 X10^6/uL (3.5-5.4); RED CELL DISTRIBUTION WIDTH 16.4 % (11.6-16.5)
--- NOTE | 2017-12-03 18:34 | VAS ---
HISTORY: 52-year-old female with left leg pain and swelling. Study: Venous duplex Doppler left lower extremity. Comparison: Bilateral lower extremity venous Doppler 11/11/2017 TECHNIQUE: Multiple malik scale and color flow Doppler images of the deep venous system were obtained of the left lower extremity. FINDINGS: The deep venous system of the left lower extremity was evaluated from the level of the common femoral vein through the popliteal vein. Interval recanalization of the deep left venous system with color flow visualized without compressibility and poor augmentation consistent with continued partial occlu sive thrombus throughout. IMPRESSION: 1. Resolving DVT of the deep venous system throughout the left lower extremity with continued nonocc lusive thrombus. Reported By:
[2017-12-03] MEDS ORDERED: NS 250 ML IV 250 ML IV ONE (19:11)
[2017-12-03] MEDS ORDERED: PHENERGAN INJ 25 MG IM ONE (19:46)
[2017-12-03] MEDS ORDERED: DEMEROL INJ IM ONE (19:46)
[2017-12-03] MEDS ORDERED: PHENERGAN INJ 25 MG ONE (19:48)
[2017-12-03] MEDS ORDERED: DEMEROL INJ ONE (19:49)
--- NOTE | 2017-12-03 20:12 | CT ---
HISTORY: Elevated D-dimer, left leg pain and swelling Study: CTA chest Comparison: 11/11/2017 Technique: Multiple axial images of the chest were obtained after the administration of IV contrast. 3D reconstructions were performed utilizing radial maximum intensity projection imaging. Dose reduct ion techniques including Automated Exposure Control (AEC) and adjustment of mA and kV were utilized. Findings: No large central pulmonary emboli are seen however evaluation of lobar, segmental and subsegmental br anches is nondiagnostic due to suboptimal contrast opacification. Consider V/Q scan for further evalu ation if there is high clinical suspicion for PE. The pulmonary arteries are normal in caliber. Belinda l appearance of the heart and pericardium. The aorta appears normal in course and caliber. The lungs are clear without effusion, consolidation, or pneumothorax. Airways are patent. There is a stable 4 m m pulmonary nodule in the right middle lobe. Mildly prominent mediastinal lymph nodes are unchanged f rom prior exam. The soft tissues and osseous structures appear intact. The visualized portions of the upper abdomen a re grossly unremarkable. IMPRESSION: 1.No large central pulmonary emboli are seen however evaluation of lobar, segmental and subsegmental branches is nondiagnostic due to suboptimal contrast opacification. Consider V/Q scan for further polo luation if there is high clinical suspicion for PE. 2. Clear lungs. 3. Stable 4 mm right middle lobe pulmonary nodule with no further follow-up required. 4. Mildly prominent mediastinal lymph nodes, unchanged from prior. Reported By:
[2017-12-03] MEDS ORDERED: LOVENOX INJ 100 MG SYR SC ONE (20:55)
[2017-12-03] MEDS ORDERED: LOVENOX INJ 40 MG SYR SC ONE (20:55)
[2017-12-03] MEDS ORDERED: LOVENOX INJ 150 MG SYR SC SCH (21:00)
[2017-12-03] MEDS ORDERED: DEMEROL INJ IVP PRN (21:14)
[2017-12-03 22:04] LABS: BILIRUBIN,URINE NEGATIVE (NEGATIVE); BLOOD/HEMOGLOBIN,URINE NEGATIVE (NEGATIVE); GLUCOSE, URINE 4+ (NEGATIVE); KETONES,URINE NEGATIVE (NEGATIVE); LEUKOCYTE ESTERASE ,URINE 1+ (NEGATIVE); NITRITES,URINE NEGATIVE (NEGATIVE); PH,URINE 6.5 (5.0 - 8.0); PROTEIN,URINE 1+ (NEGATIVE); UROBILINOGEN,URINE NORMAL (NORMAL)
[2017-12-03] MEDS: HumuLIN R SUBCUT PRN (22:06)
[2017-12-03 22:15] LABS: APPEARANCE,URINE CLEAR (CLEAR); BACTERIA,URINE TRACE /HPF (NEGATIVE); COLOR,URINE YELLOW (YELLOW); RBC,URINE 0-2 /HPF (NONE SEEN); SQUAMOUS EPITHELIAL CELL,UR MODERATE /HPF (NEGATIVE)
[2017-12-03 23:34] LABS: CKMB % 1.8 % (<4); CREATINE KINASE 56 Units/L (26-192); CREATINE KINASE MB < 1.0 ng/mL (0-4.0); TROPONIN I < 0.02 ng/mL (0-1.5)
[2017-12-04] MEDS: HumuLIN R SUBCUT PRN ×4 (05:30→21:54)
[2017-12-04 06:38] LABS: BASOPHILS % (AUTO) 1.2 % (0.2-1.0); EOSINOPHILS # (AUTO) 0.2 x10^3/uL (0.0-0.2); EOSINOPHILS % (AUTO) 4.2 % (0.9-2.9); HEMATOCRIT 34.2 % (36.0-47.0); HEMOGLOBIN 11.8 g/dL (12.0-16.0); LYMPHOCYTES # (AUTO) 1.3 X10^3/uL (1.3-2.9); LYMPHOCYTES % (AUTO) 31.1 % (21.0-51.0); MEAN CORPUSCULAR HEMOGLOBIN 29.6 pg (27.0-34.0); MEAN CORPUSCULAR HGB CONC 34.5 g/dL (33.0-35.0); MEAN CORPUSCULAR VOLUME 85.6 fL (80.0-100.0); MEAN PLATELET VOLUME 7.7 fL (7.4-11.0); MONOCYTES # (AUTO) 0.4 x10^3/uL (0.3-0.8); MONOCYTES % (AUTO) 10.3 % (0.0-13.0); NEUTROPHILS # (AUTO) 2.3 x10^3/uL (2.2-4.8); NEUTROPHILS % (AUTO) 53.2 % (42.0-75.0); PLATELET COUNT 225 X10^3/uL (150.0-450.0); RED BLOOD COUNT 3.99 X10^6/uL (3.5-5.4); RED CELL DISTRIBUTION WIDTH 15.9 % (11.6-16.5); WHITE BLOOD COUNT 4.3 X10^3/uL (3.6-10.0)
[2017-12-04 06:46] LABS: ALANINE AMINOTRANSFERASE 27 Units/L (12-78); ALKALINE PHOSPHATASE 138 Units/L (46-116); ASPARTATE AMINO TRANSFERASE 15 Units/L (15-37); BLOOD UREA NITROGEN 13 mg/dL (7-18); CALCIUM 8.7 mg/dL (8.5-10.1); CARBON DIOXIDE 31.2 mmol/L (21-32); CHLORIDE 98 mmol/L (98-107); COR CA(FOR HYPOALB) 9.5 mg/dL (8.5-10.1); COR NA(FOR HYPERGLY) 141 mmol/L (136-145); CREATININE 0.84 mg/dL (0.55-1.02); SODIUM 137 mmol/L (136-145); TOTAL PROTEIN 7.3 g/dL (6.4-8.2); eGFR BLACK RACES > 60 (>60); eGFR NON BLACK RACES > 60 (>60)
[2017-12-04 07:04] LABS: CKMB % 2.4 % (<4); CREATINE KINASE 42 Units/L (26-192); CREATINE KINASE MB < 1.0 ng/mL (0-4.0); TROPONIN I < 0.02 ng/mL (0-1.5)
[2017-12-04] MEDS ORDERED: COUMADIN TAB 7.5 MG PO ONE (09:50)
[2017-12-04] MEDS: LOVENOX INJ 100 MG SYR SC SCH ×2 (11:02→21:52)
[2017-12-04] MEDS: LOVENOX INJ 40 MG SYR SC SCH ×2 (11:03→21:52)
[2017-12-04] MEDS ORDERED: VISTARIL PO PRN (17:04)
[2017-12-04] MEDS ORDERED: LASIX PO PRN (17:04)
[2017-12-04] MEDS ORDERED: PHENERGAN TAB 25 MG PO PRN (17:04)
[2017-12-04] MEDS ORDERED: DOXAZOSIN MESYLATE 1 MG PO SCH (17:15)
[2017-12-04] MEDS ORDERED: LOSARTAN POTASSIUM PO SCH (17:15)
[2017-12-04] MEDS: NORVASC TAB 5 MG PO SCH (17:15)
[2017-12-04] MEDS: REGLAN TAB 10 MG PO SCH ×2 (18:07→21:52)
[2017-12-04] MEDS: REQUIP PO SCH ×2 (18:07→21:52)
[2017-12-04] MEDS ORDERED: SNACK - Diabetic Appropriate PO SCH (20:00)
[2017-12-04] MEDS ORDERED: COUMADIN TAB 7.5 MG PO SCH (21:00)
[2017-12-04] MEDS: PHENERGAN INJ 25 MG IV PRN (21:53)
[2017-12-04] MEDS ORDERED: AMBIEN PO PRN (21:58)
[2017-12-05 04:43] LABS: BASOPHILS # (AUTO) 0.1 X10^3/uL (0.0-0.1); BASOPHILS % (AUTO) 1.3 % (0.2-1.0); EOSINOPHILS # (AUTO) 0.2 x10^3/uL (0.0-0.2); EOSINOPHILS % (AUTO) 3.8 % (0.9-2.9); HEMOGLOBIN 12.4 g/dL (12.0-16.0); LYMPHOCYTES # (AUTO) 1.1 X10^3/uL (1.3-2.9); LYMPHOCYTES % (AUTO) 24.5 % (21.0-51.0); MEAN CORPUSCULAR HGB CONC 33.7 g/dL (33.0-35.0); MEAN CORPUSCULAR VOLUME 86.2 fL (80.0-100.0); MEAN PLATELET VOLUME 8.1 fL (7.4-11.0); MONOCYTES # (AUTO) 0.4 x10^3/uL (0.3-0.8); NEUTROPHILS # (AUTO) 2.7 x10^3/uL (2.2-4.8); NEUTROPHILS % (AUTO) 62.4 % (42.0-75.0); PLATELET COUNT 249 X10^3/uL (150.0-450.0); RED BLOOD COUNT 4.29 X10^6/uL (3.5-5.4); RED CELL DISTRIBUTION WIDTH 15.6 % (11.6-16.5); WHITE BLOOD COUNT 4.4 X10^3/uL (3.6-10.0)
[2017-12-05 04:53] LABS: ALANINE AMINOTRANSFERASE 29 Units/L (12-78); ALBUMIN 3.2 g/dL (3.4-5.0); ALKALINE PHOSPHATASE 150 Units/L (46-116); ASPARTATE AMINO TRANSFERASE 14 Units/L (15-37); BLOOD UREA NITROGEN 11 mg/dL (7-18); CALCIUM 9.1 mg/dL (8.5-10.1); CARBON DIOXIDE 32.2 mmol/L (21-32); CHLORIDE 98 mmol/L (98-107); COR CA(FOR HYPOALB) 9.7 mg/dL (8.5-10.1); COR NA(FOR HYPERGLY) 143 mmol/L (136-145); CREATININE 0.74 mg/dL (0.55-1.02); SODIUM 138 mmol/L (136-145); TOTAL PROTEIN 7.8 g/dL (6.4-8.2); eGFR BLACK RACES > 60 (>60); eGFR NON BLACK RACES > 60 (>60)
[2017-12-05] MEDS: REQUIP PO SCH (05:42)
[2017-12-05] MEDS: PHENERGAN INJ 25 MG IV PRN (05:43)
[2017-12-05] MEDS: HumuLIN R SUBCUT PRN (06:01)
[2017-12-05 08:01] VITALS: BMI 50.1
[2017-12-05] MEDS: REGLAN TAB 10 MG PO SCH (08:03)
[2017-12-05] MEDS: LOVENOX INJ 100 MG SYR SC SCH (08:03)
[2017-12-05] MEDS: NORVASC TAB 5 MG PO SCH (08:04)
[2017-12-05] MEDS: LOVENOX INJ 40 MG SYR SC SCH (08:04)
[2017-12-05] MEDS ORDERED: CARDURA PO SCH (09:00)
[2017-12-05] MEDS ORDERED: COZAAR PO SCH (09:00)
[2017-12-05] MEDS ORDERED: SYNTHROID 100 mcg TAB PO SCH (09:00)
[2017-12-05 09:17] VITALS: BP 160/69
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
[2017-12-05] MEDS ORDERED: COUMADIN TAB 7.5 MG PO SCH (21:00)
== END 2017-12-05 10:55 | disposition home or self-care (01) ==
LOC: ER 17:09 → OBS 21:07
PROVIDERS: ADMIT Internal Medicine; ATTEND Internal Medicine
DX: M79.605 Pain in left leg (principal); I82.512 Chronic embolism and thrombosis of left femoral vein; J44.9 Chronic obstructive pulmonary disease, unspecified; E11.65 Type 2 diabetes mellitus with hyperglycemia; E78.2 Mixed hyperlipidemia; I10 Essential (primary) hypertension; E03.8 Other specified hypothyroidism; R91.1 Solitary pulmonary nodule; Z79.01 Long term (current) use of anticoagulants
CPT/HCPCS: 36415; 71275; 80053; 81001; 82550; 82553; 84484; 85025; 85378; 85610; 85730; 93005; 93971; 94760; 96365; 96372; 99284; A4222; G0378; J1650; J1815; J2175; J2550

== ENCOUNTER 2018-01-07 14:11 | Emergency (ER) | payer MEDICAID ==
[2018-01-07 14:22] VITALS: BP 188/79; BMI 48.4
--- NOTE | 2018-01-07 14:42 | DR.DIZZY ---
HPI - Time seen Time seen: 14:40 - PCP Primary Care Physician: ELYSIA COLUNGA - Complaint Chief Complaint:: PT C/O BEING OUT OF HER GLUCOSE STRIPS LAST WEEK SO SHE HAS NOT BEEN ABLE TO TAKE HER INSULIN OR CHECK HER SUGAR,, PT C/O I FELT WEIRD AND I HAVE BEEN DIZZY , WEAK , LIGHT HEADED, AND PT C/O CALLING HER MD AND THEY TOLD HER TO COME TO THE ER.. BR - Nurses Notes Reviewed Nurses Notes Review: Yes - Source History Provided: Patient - Mode of Arrival Mode of Arrival: Ambulatory - Timing Onset of Chief Complaint: 01/07/18 Came on: Suddenly - Duration Duration: Constant Duration: Days - Location of Weakness Weakness Location: Generalized - Context Onset: At rest, With light exertion Does pt take pot. toxic medication?: No History of: DM Stroke Symptoms: Dizziness - Severity Severity: Normal activity level - Modifying factors Worsens: Nothing - Associated signs and symptoms Associated Signs and Symptoms: Vertigo, Weak PMH - PMH Past Medical History: Yes Past Medical History: CHF, COPD, Diabetes, Dyslipidemia, Hypertension, Hypothyroidism Past Surgical History: Yes Surgical History: Abdominal Surgery, Hysterectomy, Other - Family History History of Family Medical Conditions: Yes Family Medical History: Diabetes Mellitus, [place], Coronary Artery Disease, Hypertension - Social History Does patient currently use any type of tobacco product: No Have you used tobacco products in the last 12 months: No Type of Tobacco Use: None Does any household member use tobacco: No Alcohol Use: None Do you use any recreational Drugs:: No Lives With: Alone Lives Where: Home - infectious screening In the last 2 months have you had wt loss of >10#?: NO Have you had fever, night sweats or hemotysis?: No Have you traveled outside the country in the last 6 months?: No Isolation: Standard ROS - Review of Systems Constitutional: Weakness, Fatigue. negative: Chills, Fever Eyes: No Symptoms Reported ( ) PE - Vital Signs Vitals: Temperature 97.0 F Pulse Rate 88 Respiratory Rate 20 Blood Pressure [Left Arm] 136/63 Blood Pressure [Right Arm] 160/69 Blood Pressure 188/79 O2 Sat by Pulse Oximetry 97 ROR - Labs Reviewed Result Diagrams: 01/07/18 14:50 01/07/18 14:50 Laboratory: WBC 3.5 X10^3/uL (3.6-10.0) L 01/07/18 14:50 RBC 4.75 X10^6/uL (3.5-5.4) 01/07/18 14:50 Hgb 13.4 g/dL (12.0-16.0) 01/07/18 14:50 Hct 40.0 % (36.0-47.0) 01/07/18 14:50 MCV 84.2 fL (80.0-100.0) 01/07/18 14:50 MCH 28.2 pg (27.0-34.0) 01/07/18 14:50 MCHC 33.5 g/dL (33.0-35.0) 01/07/18 14:50 RDW 15.0 % (11.6-16.5) 01/07/18 14:50 Plt Count 239 X10^3/uL (150.0-450.0) 01/07/18 14:50 MPV 8.1 fL (7.4-11.0) 01/07/18 14:50 Neut % (Auto) 60.3 % (42.0-75.0) 01/07/18 14:50 Lymph % (Auto) 28.9 % (21.0-51.0) 01/07/18 14:50 [place] % (Auto) 7.6 % (0.0-13.0) 01/07/18 14:50 Eos % (Auto) 2.4 % (0.9-2.9) 01/07/18 14:50 Baso % (Auto) 0.8 % (0.2-1.0) 01/07/18 14:50 Neut # (Auto) 2.1 x10^3/uL (2.2-4.8) L 01/07/18 14:50 Lymph # (Auto) 1.0 X10^3/uL (1.3-2.9) L 01/07/18 14:50 [place] # (Auto) 0.3 x10^3/uL (0.3-0.8) 01/07/18 14:50 Eos # (Auto) 0.1 x10^3/uL (0.0-0.2) 01/07/18 14:50 Baso # (Auto) 0.0 X10^3/uL (0.0-0.1) 01/07/18 14:50 Absolute Nucleated RBC 0.0 /100WBC 01/07/18 14:50 Sodium 136 mmol/L (136-145) 01/07/18 14:50 Corrected Sodium 142 mmol/L (136-145) 01/07/18 14:50 Potassium 3.3 mmol/L (3.5-5.1) L 01/07/18 14:50 Chloride 95 mmol/L (98-107) L 01/07/18 14:50 Carbon Dioxide 29.2 mmol/L (21-32) 01/07/18 14:50 BUN 16 mg/dL (7-18) 01/07/18 14:50 Creatinine 1.03 mg/dL (0.55-1.02) H 01/07/18 14:50 Est GFR (MDRD) Af Amer > 60 (>60) 01/07/18 14:50 Est GFR (MDRD) Non-Af 60 (>60) 01/07/18 14:50 Glucose 349 mg/dL (65-99) H 01/07/18 14:50 Calcium 8.7 mg/dL (8.5-10.1) 01/07/18 14:50 Corrected Calcium TNP 01/07/18 14:50 Total Bilirubin 0.20 mg/dL (0.2-1.0) 01/07/18 14:50 AST 13 Units/L (15-37) L 01/07/18 14:50 ALT 28 Units/L (12-78) 01/07/18 14:50 Alkaline Phosphatase 160 Units/L (46-116) H 01/07/18 14:50 Total Protein 8.4 g/dL (6.4-8.2) H 01/07/18 14:50 Albumin 3.5 g/dL (3.4-5.0) 01/07/18 14:50 Globulin 4.9 g/dL (2.5-4.5) H 01/07/18 14:50 Albumin/Globulin Ratio 0.7 Ratio (1.1-2.1) L 01/07/18 14:50 Amylase 22 Units/L (25-115) L 01/07/18 14:50 Lipase 62 Units/L (73-393) L 01/07/18 14:50 Specimen Type Clean catch urine 01/07/18 15:16 Urine Color Yellow (YELLOW) 01/07/18 15:16 Urine Appearance Hazy (CLEAR) 01/07/18 15:16 Urine pH 6.0 (5.0 - 8.0) 01/07/18 15:16 Ur Specific [place] 1.015 (1.000-1.030) 01/07/18 15:16 Urine Protein 1+ (NEGATIVE) 01/07/18 15:16 Urine Glucose (UA) 4+ (NEGATIVE) 01/07/18 15:16 Urine Ketones Negative (NEGATIVE) 01/07/18 15:16 Urine Occult Blood 1+ (NEGATIVE) 01/07/18 15:16 Urine Nitrite Negative (NEGATIVE) 01/07/18 15:16 Urine Bilirubin Negative (NEGATIVE) 01/07/18 15:16 Urine Urobilinogen Normal (NORMAL) 01/07/18 15:16 Ur Leukocyte Esterase 3+ (NEGATIVE) 01/07/18 15:16 Urine RBC 0-2 /HPF (NONE SEEN) 01/07/18 15:16 Urine WBC 5-10 /HPF (NONE SEEN) 01/07/18 15:16 Ur Squamous Epith Cells Moderate /HPF (NEGATIVE) 01/07/18 15:16 Urine Bacteria Trace /HPF (NEGATIVE) 01/07/18 15:16 Urine Mucus Few /HPF (NEGATIVE) 01/07/18 15:16 Ur Culture Indicated? Yes/culture set up 01/07/18 15:16 Acetone, Semi-Quant Negative (NEGATIVE) 01/07/18 14:50 - Diagnosis Discharge Problem: Hyperglycemia, Dizziness, Vertigo - Discharge Plan Condition: Stable Prescriptions: Meclizine HCl 25 mg PO TID PRN #30 tab PRN Reason: Dizziness - Follow ups/Referrals Follow ups/Referrals: ELYSIA COLUNGA [Primary Care Provider] - 3 days - Instructions Instructions: Dizziness, [id number], Vertigo, [id number], Hyperglycemia Additional Instructions: RETURN TO ED IF WORSE.
[2018-01-07 15:01] LABS: BASOPHILS % (AUTO) 0.8 % (0.2-1.0); EOSINOPHILS # (AUTO) 0.1 x10^3/uL (0.0-0.2); EOSINOPHILS % (AUTO) 2.4 % (0.9-2.9); HEMOGLOBIN 13.4 g/dL (12.0-16.0); LYMPHOCYTES % (AUTO) 28.9 % (21.0-51.0); MEAN CORPUSCULAR HEMOGLOBIN 28.2 pg (27.0-34.0); MEAN CORPUSCULAR HGB CONC 33.5 g/dL (33.0-35.0); MEAN CORPUSCULAR VOLUME 84.2 fL (80.0-100.0); MEAN PLATELET VOLUME 8.1 fL (7.4-11.0); MONOCYTES # (AUTO) 0.3 x10^3/uL (0.3-0.8); MONOCYTES % (AUTO) 7.6 % (0.0-13.0); NEUTROPHILS # (AUTO) 2.1 x10^3/uL (2.2-4.8); NEUTROPHILS % (AUTO) 60.3 % (42.0-75.0); PLATELET COUNT 239 X10^3/uL (150.0-450.0); RED BLOOD COUNT 4.75 X10^6/uL (3.5-5.4); WHITE BLOOD COUNT 3.5 X10^3/uL (3.6-10.0)
[2018-01-07 15:11] LABS: ALANINE AMINOTRANSFERASE 28 Units/L (12-78); ALBUMIN 3.5 g/dL (3.4-5.0); ALKALINE PHOSPHATASE 160 Units/L (46-116); AMYLASE 22 Units/L (25-115); ASPARTATE AMINO TRANSFERASE 13 Units/L (15-37); BLOOD UREA NITROGEN 16 mg/dL (7-18); CALCIUM 8.7 mg/dL (8.5-10.1); CARBON DIOXIDE 29.2 mmol/L (21-32); CHLORIDE 95 mmol/L (98-107); COR NA(FOR HYPERGLY) 142 mmol/L (136-145); CREATININE 1.03 mg/dL (0.55-1.02); LIPASE 62 Units/L (73-393); SODIUM 136 mmol/L (136-145); TOTAL PROTEIN 8.4 g/dL (6.4-8.2); eGFR BLACK RACES > 60 (>60); eGFR NON BLACK RACES 60 (>60)
[2018-01-07 15:22] LABS: BILIRUBIN,URINE NEGATIVE (NEGATIVE); BLOOD/HEMOGLOBIN,URINE 1+ (NEGATIVE); GLUCOSE, URINE 4+ (NEGATIVE); KETONES,URINE NEGATIVE (NEGATIVE); LEUKOCYTE ESTERASE ,URINE 3+ (NEGATIVE); NITRITES,URINE NEGATIVE (NEGATIVE); PROTEIN,URINE 1+ (NEGATIVE); UROBILINOGEN,URINE NORMAL (NORMAL)
[2018-01-07 15:24] LABS: APPEARANCE,URINE HAZY (CLEAR); COLOR,URINE YELLOW (YELLOW)
[2018-01-07 15:29] LABS: BACTERIA,URINE TRACE /HPF (NEGATIVE); RBC,URINE 0-2 /HPF (NONE SEEN); SQUAMOUS EPITHELIAL CELL,UR MODERATE /HPF (NEGATIVE)
[2018-01-07 15:30] LABS: MUCUS,URINE FEW /HPF (NEGATIVE)
--- NOTE | 2018-01-07 16:54 | CT ---
CT brain without contrast Indication: Dizziness and weakness Comparison 01/05/2017 Technique: Multiple axial images of the brain were obtained from the skull base to the vertex without administra tion of IV contrast. Findings: No acute intraparenchymal hemorrhage or mass can be identified. No extra-axial fluid collections are seen. No alteration in the attenuation of the brain parenchyma can be identified to suggest acute o r subacute ischemic change. The ventricular system is symmetric and nondilated. The extracranial st ructures are grossly unremarkable. IMPRESSION: 1. No acute intracranial process is identified. Reported By:
== END 2018-01-07 17:11 | disposition home or self-care (01) ==
LOC: ER 14:19
DX: R73.9 Hyperglycemia, unspecified (principal); R42 Dizziness and giddiness
CPT/HCPCS: 36415; 70450; 80053; 81001; 82009; 82150; 83690; 85025; 87086; 99283

== ENCOUNTER 2018-01-31 13:42 | Emergency (ER) | payer MEDICAID ==
[2018-01-31 13:46] VITALS: BP 117/56; BMI 47.1
--- NOTE | 2018-01-31 14:01 | DR.EXTPAIN ---
HPI - Time seen Time seen: 14:00 - PCP Primary Care Physician: CRISTINE - Complaint/Symptoms Chief Complaint:: PT C/O LOWER BACK PAIN RADIATING DOWN LT LEG. NOTED SWELLING TO LLE. PT STATES SHE WAS UNABLE TO GET INTO HER PCP. - Nurses notes reviewed Nurses Notes Review: Yes - Source History Provided: Patient - Mode of arrival Mode of Arrival: Ambulatory - Timing Onset of Chief Complaint: 01/31/18 - Context History of: Arthritis PMH - PMH Past Medical History: Yes Past Medical History: CHF, COPD, Diabetes, Dyslipidemia, Hypertension, Hypothyroidism Past Surgical History: Yes Surgical History: Abdominal Surgery, Hysterectomy, Other - Family History History of Family Medical Conditions: Yes Family Medical History: Diabetes Mellitus, [place], Coronary Artery Disease, Hypertension - Social History Does any household member use tobacco: No Alcohol Use: None Do you use any recreational Drugs:: No Lives With: Family Lives Where: Home - infectious screening In the last 2 months have you had wt loss of >10#?: NO Have you had fever, night sweats or hemotysis?: No Have you traveled outside the country in the last 6 months?: No Isolation: Standard ROS - Review of Systems Constitutional: No Symptoms Reported Eyes: No Symptoms Reported ENTM: No Symptoms Reported Respiratoy: No Symptoms Reported Cardiovascular: No Symptoms Reported Gastrointestinal/Abdominal: No Symptoms Reported Genitourinary: No Symptoms Reported Neurological: No Symptoms Reported Musculoskeletal: No Symptoms Reported Integumentary: No Symptoms Reported Hematologic/Lymphatic: No Symptoms Reported Endocrine: No Symptoms Reported All Other Systems: Reviewed and Negative PE - Vital Signs Vitals: Temperature 99.3 F Pulse Rate 102 Respiratory Rate 20 Blood Pressure [Left Arm] 136/63 Blood Pressure [Right Arm] 160/69 Blood Pressure 117/56 O2 Sat by Pulse Oximetry 93 - General Limitations: No Limitations General Appearance: Alert - Head Head Exam: Normal Inspection - Eyes Eye exam: Normal Appearance - ENT ENT Exam: Normal External Ear Exam - Neck Neck Exam: Trachea Midline - Chest Chest Inspection: Symmetric Chest Wall Rise - Respiratory Respiratory Exam: Normal Lung Sounds Bilat Respiratory Exam: Bilateral Clear to Auscultation - Cardiovascular Cardiovascular Exam: Regular Rate, Normal Rhythm, Normal Heart Sounds - Abdominal Exam Abdominal Exam: Normal Bowel Sounds, Soft. negative: Tenderness - Extremities Extremities Exam: Tenderness - Lower Extremities Gait Exam: Observed and Normal - Back Back Exam: Paraspinal Tenderness - Neurological Neurological Exam: Alert, Oriented X3 - Psychiatric Psychiatric Exam: Normal Affect, Normal Mood - Skin Skin Exam: Erythema ROR - Labs Reviewed Laboratory: Specimen Type Clean catch urine 01/31/18 14:53 Urine Color Yellow (YELLOW) 01/31/18 14:53 Urine Appearance Hazy (CLEAR) 01/31/18 14:53 Urine pH 6.5 (5.0 - 8.0) 01/31/18 14:53 Ur Specific [place] 1.005 (1.000-1.030) 01/31/18 14:53 Urine Protein 1+ (NEGATIVE) 01/31/18 14:53 Urine Glucose (UA) 4+ (NEGATIVE) 01/31/18 14:53 Urine Ketones Negative (NEGATIVE) 01/31/18 14:53 Urine Occult Blood Negative (NEGATIVE) 01/31/18 14:53 Urine Nitrite Negative (NEGATIVE) 01/31/18 14:53 Urine Bilirubin Negative (NEGATIVE) 01/31/18 14:53 Urine Urobilinogen Normal (NORMAL) 01/31/18 14:53 Ur Leukocyte Esterase 1+ (NEGATIVE) 01/31/18 14:53 Urine RBC 0-2 /HPF (NONE SEEN) 01/31/18 14:53 Urine WBC 3-5 /HPF (NONE SEEN) 01/31/18 14:53 Ur Squamous Epith Cells Rare /HPF (NEGATIVE) 01/31/18 14:53 Urine Bacteria Trace /HPF (NEGATIVE) 01/31/18 14:53 Ur Culture Indicated? No/not indicated 01/31/18 14:53 - Diagnosis Discharge Problem: Back pain Qualifiers: Back pain location: low back pain Chronicity: acute Back pain laterality: unspecified Sciatica presence: without sciatica Qualified Code(s): M54.5 - Low back pain Leg pain Qualifiers: Laterality: left Qualified Code(s): M79.605 - Pain in left leg - Discharge Plan Condition: Stable - Follow ups/Referrals Follow ups/Referrals: ELYSIA COLUNGA [Primary Care Provider] - 3 days - Instructions Instructions: Back Pain, Adult, [id number], Sciatica, [id number], Leg Cramps Additional Instructions: RETURN TO ED IF WORSE.
[2018-01-31] MEDS ORDERED: DEMEROL INJ IM ONE (14:50)
[2018-01-31] MEDS ORDERED: PHENERGAN INJ 25 MG IM ONE (14:51)
[2018-01-31] MEDS ORDERED: PHENERGAN INJ 25 MG ONE (14:53)
[2018-01-31] MEDS ORDERED: DEMEROL INJ ONE (14:54)
[2018-01-31 15:20] LABS: BILIRUBIN,URINE NEGATIVE (NEGATIVE); BLOOD/HEMOGLOBIN,URINE NEGATIVE (NEGATIVE); GLUCOSE, URINE 4+ (NEGATIVE); KETONES,URINE NEGATIVE (NEGATIVE); LEUKOCYTE ESTERASE ,URINE 1+ (NEGATIVE); NITRITES,URINE NEGATIVE (NEGATIVE); PH,URINE 6.5 (5.0 - 8.0); PROTEIN,URINE 1+ (NEGATIVE); UROBILINOGEN,URINE NORMAL (NORMAL)
[2018-01-31 15:30] LABS: APPEARANCE,URINE HAZY (CLEAR); COLOR,URINE YELLOW (YELLOW)
[2018-01-31 15:31] LABS: BACTERIA,URINE TRACE /HPF (NEGATIVE); RBC,URINE 0-2 /HPF (NONE SEEN); SQUAMOUS EPITHELIAL CELL,UR RARE /HPF (NEGATIVE)
--- NOTE | 2018-01-31 15:45 | VAS ---
HISTORY: 52-year-old female with left leg pain and swelling and history of DVT. Study: Venous duplex Doppler left lower extremity. Comparison: Venous duplex Doppler left lower extremity 12/03/2017 TECHNIQUE: Multiple malik scale and color flow Doppler images of the deep venous system were obtained of the left lower extremity. FINDINGS: The deep venous system of the left lower extremity was evaluated from the level of the common femoral vein through the popliteal vein. Scattered regions of decreased color flow with normal augmentation and spectral analysis. In addition, normal compression is seen throughout the deep venous system. IMPRESSION: 1. No acute DVT left lower extremity. 2. Continued, near-complete resolution of prior noted DVT with scattered areas of wall adherent throm bus producing decreased color flow. Reported By:
== END 2018-01-31 16:27 | disposition home or self-care (01) ==
LOC: ER 13:50
DX: M54.5 Low back pain (principal); M79.605 Pain in left leg
CPT/HCPCS: 81001; 93971; 96372; 99283; J2175; J2550

== ENCOUNTER 2018-02-18 08:47 | Emergency (ER) | payer MEDICAID ==
[2018-02-18 08:51] VITALS: BP 119/54; BMI 47.1
--- NOTE | 2018-02-18 09:37 | DR.GENAD ---
HPI - PCP Primary Care Physician: CRISTINE - HPI Comment HPI Comment: PATIENT IS RUNNING LOW GRADE FEVER AND IS HAVING SEVERE HEADACHE. HISTORY MIGRAIN FEVER. POST NASAL DRIP PRESENT. GLUCOSE NOT RUNNING HIGH OR LOW. - Complaint/Symptoms Chief Complaint Doctors Comments: GENERALIZE BODYACHES, HEADACHE, CONGESTION THAT IS PROGESSIVE FOR 2 WEEKS. Chief Complaint:: PT C/O BODY ACHES, SORE THROAT, LEGS AND BACK PAIN, AND MIAGRAINE. PT STATES HER SYMPTOMS STARTED 2 WEEKS AGO. - Nurses notes reviewed Nurses Notes Review: Yes - Source History Provided: Patient - Mode of Arrival Mode of Arrival: Wheelchair - Timing Onset of Chief Complaint: 02/04/18 Came on: Suddenly - Duration Duration: Constant Duration: Days - Severity Severity: Moderate PMH - PMH Past Medical History: Yes Past Medical History: CHF, COPD, Diabetes, Dyslipidemia, Hypertension, Hypothyroidism Past Surgical History: Yes Surgical History: Abdominal Surgery, Hysterectomy, Other - Family History History of Family Medical Conditions: Yes Family Medical History: Diabetes Mellitus, [place], Coronary Artery Disease, Hypertension - Social History Does any household member use tobacco: No Alcohol Use: None Do you use any recreational Drugs:: No Lives With: Alone Lives Where: Home - infectious screening In the last 2 months have you had wt loss of >10#?: NO Have you had fever, night sweats or hemotysis?: No Have you traveled outside the country in the last 6 months?: No Isolation: Standard ROS - Review of Systems Constitutional: No Symptoms Reported. negative: Chills, Fever, Weakness, Fatigue Eyes: No Symptoms Reported. negative: Eye Pain, Blurred Vision, Discharge, Photophobia ENTM: Nose Discharge, Nose Congestion, Throat Pain. negative: Ear Discharge Respiratoy: Non-Productive Cough, Short of Breath, Wheezing. negative: Productive Cough, Hemoptysis Cardiovascular: No Symptoms Reported. negative: Chest Pain Gastrointestinal/Abdominal: No Symptoms Reported. negative: Abdominal Pain, Diarrhea, Nausea, Vomiting Genitourinary: negative: Dysuria, Hematuria Neurological: Headache, Dizziness. negative: Weakness Musculoskeletal: Muscle Pain Integumentary: Change in Color (LOWER EXTREMITIES.) Endocrine: negative: Flushing, Increased Thirst, Increased Urine All Other Systems: Reviewed and Negative PE - Vital Signs Vitals: Temperature 97.9 F Pulse Rate 104 Respiratory Rate 18 Blood Pressure [Left Arm] 136/63 Blood Pressure [Right Arm] 160/69 Blood Pressure 119/54 O2 Sat by Pulse Oximetry 93 - General Limitations: No Limitations General Appearance: Alert - Head Head Exam: Normal Inspection - Eyes Eye exam: Normal Appearance - ENT ENT Exam: Normal External Ear Exam External Ear Exam: Normal External Inspection TM/Canal Exam: Bilateral Bulging Nose Exam: Sinus Tenderness Mouth Exam: Normal Inspection Throat Exam: Tonsillar Erythema, Tonsillomegaly. negative: Tonsillar Exudate - Neck Neck Exam: Trachea Midline. negative: Tenderness, Meningismus, Lymphadenopathy - Chest Chest Inspection: Symmetric Chest Wall Rise - Respiratory Respiratory Exam: Normal Lung Sounds Bilat Respiratory Exam: Bilateral Wheezing, Bilateral Rhonchi, Lower Wheezing, Lower Rhonchi - Cardiovascular Cardiovascular Exam: Regular Rate, Normal Rhythm, Normal Heart Sounds - Abdominal Exam Abdominal Exam: Normal Bowel Sounds, Soft. negative: Tenderness - Extremities Extremities Exam: Tenderness (SWELLING BOTH LEGS. PULSES INTACT.) - Back Back Exam: Normal Inspection - Neurologic Neurological Exam: Alert, Oriented X3, CN II-XII Intact. negative: Motor Sensory Deficit - Psychiatric Psychiatric Exam: Normal Affect, Normal Mood - Skin Skin Exam: Erythema MDM - Differential Diagnosis Differential Diagnosis: SORE THROAT, SINUSITIS, SINUS HEADACHE, MIGRAINE HEADACHE. Course - Treatment Treatment: SEE ORDERS. IM TORADOL AND ZOFRAN IN ED. - Reevaluation 1st: Improved (HEADACHE IMPROVING.) - Education/Counseling Education/Counseling: Patient, Education Educated On: Diagnosis, Needs for Follow Up ROR - Labs Reviewed Laboratory Results Reviewed?: Yes Laboratory: S. pyogenes (TEM-PCR) Not detected (NOT DETECT) 02/18/18 09:35 - Diagnosis Discharge Problem: Sore throat Headache Qualifiers: Headache type: unspecified Headache chronicity pattern: acute headache Intractability: intractable Qualified Code(s): R51 - Headache Sinusitis Qualifiers: Sinusitis location: unspecified location Chronicity: acute Recurrence: not specified as recurrent Qualified Code(s): J01.90 - Acute sinusitis, unspecified - Discharge Plan Disposition: 01 HOME, SELF-CARE Condition: Stable Prescriptions: Amoxicillin/Potassium Clav [Augmentin 875-125 Tablet] 1 tab PO Q12H #20 tab Cetirizine HCl [Zyrtec Tab 10 mg] 10 mg PO DAILY #30 tab Ketorolac Tromethamine [Toradol Tab] 10 mg PO Q8H PRN #15 tab PRN Reason: Pain - Follow ups/Referrals Follow ups/Referrals: ELYSIA COLUNGA [Primary Care Provider] - 3 days - Instructions Instructions: Migraine Headache, [id number], Sinusitis, Adult, Fylq-[id number], Sinus Headache, Sgoi-ar-Mola, Sore Throat, Jsqf-[id number] Additional Instructions: RETURN TO ED IF WORSE.
[2018-02-18] MEDS ORDERED: TORADOL 60 MG VIAL IM ONE (10:25)
[2018-02-18] MEDS ORDERED: ZOFRAN INJ 4 MG VIAL IM ONE (10:25)
[2018-02-18] MEDS ORDERED: ZOFRAN INJ 4 MG VIAL ONE (10:37)
[2018-02-18] MEDS ORDERED: TORADOL 60 MG VIAL ONE (10:37)
== END 2018-02-18 10:56 | disposition home or self-care (01) ==
LOC: ER 08:53
DX: J01.80 Other acute sinusitis (principal); R51 Headache; J02.9 Acute pharyngitis, unspecified
CPT/HCPCS: 87651; 96372; 99282; J1885; J2405